=== PATIENT | male | born 1955 | race Caucasian/White ===

== ENCOUNTER 2018-07-05 01:31 | Inpatient (IN) ==
--- NOTE | 2018-07-05 01:38 | ED ---
HPI General Chief Complaint: Stroke Alert Stated Complaint: Stroke Alert Time Seen by Provider: 07/05/18 01:33 Source: patient, family and EMS Mode of arrival: EMS Limitations: no limitations History of Present Illness Onset (ago): minute(s) (45) Time: 00:45 Last Observed Normal: 00:45 Timing confirmed by: spouse Location: Reports right face, right arm and right leg History of same: Yes (History of previous stroke with no residual deficits) Severity: moderate Quality: Reports weak and numb Relieving factors: none Exacerbating factors: none Context: Reports sudden onset On Anticoagulants: No (He is on an aspirin a day) Associated symptoms: Reports denies other symptoms Treatments Prior to Arrival: Reports none Related Data Home Medications Medication Instructions Recorded Confirmed Zopiclone 1 tab PO HS PRN 07/05/18 atorvastatin 80 mg PO DAILY 07/05/18 07/05/18 celecoxib 200 mg PO BID PRN 07/05/18 07/05/18 citalopram 10 mg PO DAILY 07/05/18 07/05/18 escitalopram oxalate 20 mg PO DAILY 07/05/18 07/05/18 febuxostat [Uloric] 80 mg PO DAILY 07/05/18 07/05/18 hydromorphone 0.5 - 1 tab PO Q4H PRN 07/05/18 07/05/18 meloxicam 7.5 mg PO DAILY 07/05/18 07/05/18 perindopril erbumine 4 mg PO DAILY 07/05/18 07/05/18 tadalafil 20 mg PO DAILY 07/05/18 07/05/18 Allergies Allergy/AdvReac Type Severity Reaction Status Date / Time No Known Allergies Allergy Verified 07/05/18 01:33 Review of Systems ROS: all other systems reviewed are negative [facility] Medical History Medical History Gout (Acute) High cholesterol (Acute) Hypertension (Acute) Stroke (Acute) Surgical History Surgical History Hx of appendectomy (Acute) Hx of rotator cuff surgery (Acute) Social History Social History Substance History: Past History Smoking Status: Never smoker How Often Do You Have a Drink Containing Alcohol: 4 or more times a week Recent Travel in [facility] within the Last 8 Weeks: No Recent Out of Country Travel within the Last 8 Weeks: No Exam Const General: cooperative, healthy appearing and comfortable Orientation: alert, awake and oriented x3 HENMT Head: normal to inspection, normocephalic and atraumatic Eyes Alignment and Position: alignment normal Conjunctivae: conjunctivae normal Sclera: sclerae normal Pupils: PERRL EOM: EOM intact bilaterally Neck Neck: normal visual inspection, no lymphadenopathy and no meningeal signs Chest Chest: normal inspection of the chest Resp Effort & Inspection: normal respiratory effort and able to speak in complete sentences Auscultation: clear to auscultation bilaterally Cardio Rate: regular rate Rhythm: regular rhythm Back/Spine/Pelvis Cervical Spine: cervical ROM normal Thoracic/Lumbar Spine: thoraco-lumbar ROM normal Skin General: no rashes or lesions noted, turgor normal and dry skin Neuro General: alert, awake and oriented x3 Cranial Nerves: CN's II-XI intact bilaterally Cognition: normal cognition Speech: speech normal Motor: other Extrem General: normal to inspection and full ROM Psych Appearance: grossly normal Mental Status: mental status grossly normal Speech and Movement: speech and movement normal Mood: congruent mood Affect: normal affect Attitude: cooperative Thought Process: normal Thought Content: normal Judgment: judgment good Course Consultations Consultation #1: Dr. Aguilar, neurology Time: 01:41 Consultation #2: Dr. Bowen, carriage setter Time: 02:00 Initial Documented Vital Signs Temperature 98.2 F 07/05/18 01:37 Pulse Rate 85 07/05/18 01:37 Respiratory Rate 16 07/05/18 01:37 Blood Pressure 185/91 H 07/05/18 01:37 Pulse Oximetry 98 07/05/18 01:37 Last Documented Vital Signs Temperature 98.2 F 07/05/18 01:37 Pulse Rate 85 07/05/18 01:37 Respiratory Rate 16 07/05/18 01:37 Blood Pressure 185/91 H 07/05/18 01:37 Pulse Oximetry 100 07/05/18 01:53 Critical Care Time Critical Care Time: Yes Total Critical Care Time: 40 Attestation: Time to perform other separately billable procedures was not included in the critical care time. My time did not include minutes spent treating any other patients simultaneously or on activities that did not directly contribute to the patient's treatment. The services I provided to this patient were to treat and/or prevent clinically significant deterioration due to stroke alert I provided critical care services requiring my management, as noted below: Chart data review, documentation time, medication orders and management, vital sign assessments/reviewing monitor data, ordering and reviewing lab tests, ordering and interpreting/reviewing x-rays and diagnostic studies, care of the patient and discussion of the patient with the admitting physicians NIH Stroke Scale NIHSS Time Completed NIHSS Time Completed: 01:37 NIH Stroke Scale Level of Consciousness: 0-Alert Orientation Questions: 0-Answers both correct Responds to Commands: 0-Both tasks correct Gaze Eye Movement: 0-Horizontal movement WNL Visual Bell: 0-No visual field defect Facial Movement: 0-Normal Motor Functions Arm LEFT: 0-No drift Motor Functions Arm RIGHT: 2-Falls before 10 seconds Motor Functions Leg LEFT: 0-No drift Motor Functions Leg RIGHT: 2-Falls before 5 seconds Limb Ataxia: 0-No ataxia Sensory Loss: 2-Severe sensory loss Best Language: 0-Normal Articulation: 0-Normal Extinction or Inattention Sensory: 0-Absent Total: 6 Medical Decision Making MDM Narrative Medical decision making narrative: This patient presented to us as a stroke alert. Onset of symptoms was approximately 12:45 AM. He was up working on the computer when he had the acute onset of right-sided weakness. On exam, he is awake, alert and fully oriented. He has no facial nerve weakness. He does have right facial numbness. He has right extremity weakness , lower greater than upper. This gave him an initial NIH score of 6. The patient was taken emergently to CT. The CT shows a left thalamic hemorrhage measuring 2 cm x 1 cm and causing no mass-effect. The patient is not on any anticoagulants. Therefore, vitamin K, FFP and K Centra are unlikely to be helpful. Due to the location of the hemorrhage, neurosurgical consultation is also unlikely to be helpful. I have placed a call to the carriage setter. The patient has been placed on a Cardene drip for blood pressure control. The [place] been [place] [facility] [place] [facility]. Medical Screen Exam Complete: Yes Emergency Medical Condition: Yes Differential Diagnosis Differential Diagnosis: Differential diagnosis includes but is not limited to TIA, CVA, brain tumor, migraine, anxiety Lab Data Lab results reviewed: Yes I reviewed the patient's lab results. Result diagrams: 07/05/18 01:33 07/05/18 01:33 Lab Results 07/05/18 07/05/18 07/05/18 Range/Units 01:33 01:33 01:33 CBC w Diff Auto diff final WBC 4.1 (4.0-11.0) th/mm3 RBC 3.58 L (4.50-5.90) mil/mm3 Hgb 12.0 L (13.0-17.0) gm/dL Hct 35.2 L (39.0-51.0) % MCV 98.3 (80.0-100.0) fL MCH 33.5 (27.0-34.0) pg MCHC 34.1 (32.0-36.0) % RDW 13.1 (11.6-17.2) % Plt Count 104 L (150-450) th/mm3 MPV 8.0 (7.0-11.0) fL Neut % (Auto) 59.3 (16.0-70.0) % Lymph % (Auto) 24.1 (9.0-44.0) % Marion % (Auto) 15.7 H (0.0-8.0) % Eos % (Auto) 0.5 (0.0-4.0) % Baso % (Auto) 0.4 (0.0-2.0) % Neut # (Auto) 2.5 (1.8-7.7) th/mm3 Lymph # (Auto) 1.0 (1.0-4.8) th/mm3 Marion # (Auto) 0.6 (0.0-0.9) th/mm3 Eos # (Auto) 0.0 (0.0-0.4) th/mm3 Baso # (Auto) 0.0 (0.0-0.2) th/mm3 WBC Differential . Differential Comment . PT 10.6 (9.8-11.6) sec INR 1.0 Ratio APTT 25.4 (23.4-31.7) sec Sodium 142 (136-145) meq/L Potassium 3.7 (3.5-5.1) meq/L Chloride 109 H (98-107) meq/L Carbon Dioxide 23.2 (21.0-32.0) meq/L Anion Gap 10 (5-15) meq/L BUN 12 (7-18) mg/dL Creatinine 1.10 (0.60-1.30) mg/dL Estimated GFR 67 L (>89) mL/min POC Glucose (68-110) mg/dl Random Glucose 105 (74-106) mg/dL Calcium 8.2 L (8.5-10.1) mg/dL Total Creatine Kinase 51 (39-308) U/L Troponin I Less than 0.02 L (0.02-0.05) ng/mL 07/05/18 Range/Units 01:33 CBC w Diff WBC (4.0-11.0) th/mm3 RBC (4.50-5.90) mil/mm3 Hgb (13.0-17.0) gm/dL Hct (39.0-51.0) % MCV (80.0-100.0) fL MCH (27.0-34.0) pg MCHC (32.0-36.0) % RDW (11.6-17.2) % Plt Count (150-450) th/mm3 MPV (7.0-11.0) fL Neut % (Auto) (16.0-70.0) % Lymph % (Auto) (9.0-44.0) % Marion % (Auto) (0.0-8.0) % Eos % (Auto) (0.0-4.0) % Baso % (Auto) (0.0-2.0) % Neut # (Auto) (1.8-7.7) th/mm3 Lymph # (Auto) (1.0-4.8) th/mm3 Marion # (Auto) (0.0-0.9) th/mm3 Eos # (Auto) (0.0-0.4) th/mm3 Baso # (Auto) (0.0-0.2) th/mm3 WBC Differential Differential Comment PT (9.8-11.6) sec INR Ratio APTT (23.4-31.7) sec Sodium (136-145) meq/L Potassium (3.5-5.1) meq/L Chloride (98-107) meq/L Carbon Dioxide (21.0-32.0) meq/L Anion Gap (5-15) meq/L BUN (7-18) mg/dL Creatinine (0.60-1.30) mg/dL Estimated GFR (>89) mL/min POC Glucose 93 (68-110) mg/dl Random Glucose (74-106) mg/dL Calcium (8.5-10.1) mg/dL Total Creatine Kinase (39-308) U/L Troponin I (0.02-0.05) ng/mL Imaging Data Radiologist's impression: Head CT 07/05/18 01:33 CONCLUSION: 1. Acute left thalamic hemorrhage without significant mass effect. Report was called by Dr. Mckeon to Dr. He.. ECG Data EKG Prior to Arrival: Yes Attestation: I personally reviewed and interpreted this ECG as follows: Discharge Plan Discharge Disposition Patient Disposition: ED Admit(ED Internal Use Only) Discharge Order Discharge Orders: ED Use Only Admit Order (Routine); Ordered 07/05/18 Ordered By: Krystal He Discharge Details Diagnosis: Acute intracerebral hemorrhage Physicians Team ED Provider: Krystal He Primary Care Provider: NON STAFF,PROVIDER Attending Provider: Carolyn Bowen Status ED Status: Admitted Patient
[2018-07-05] MEDS ORDERED: Sod Chloride 0.9% Inj 1,000 ML IV.CONT SCH (01:45)
--- NOTE | 2018-07-05 01:51 | CT ---
EXAM DATE: 07/05/2018 1:41 AM EST AGE/SEX: 63 years / Male INDICATIONS: Stroke alert. Right arm and numbness and weakness. CLINICAL DATA: This is the patient's initial encounter. Patient reports that signs and symptoms have been present for 1 day and indicates a pain score of 0/10. MEDICAL/SURGICAL HISTORY: Stroke. None. RADIATION DOSE: 60.08 CTDI (mGy) COMPARISON: No prior exams available for comparison. TECHNIQUE: CT of the head without contrast. Using automated exposure control and adjustment of the mA and/or kV according to patient size, radiation dose was kept as low as reasonably achievable to ob tain optimal diagnostic quality images. DICOM format image data is available electronically for revi ew and comparison. FINDINGS: Cerebrum: There is a 2.1 x 1.1 cm acute thalamic bleed on the left. No significant mass effect observ ed. No other sites of hemorrhage seen. The ventricles are normal for age. No evidence of midline marciano ft, mass lesion, or acute infarction. No extraaxial fluid collections are seen. Posterior Fossa: The cerebellum and brainstem are intact. The 4th ventricle is midline. The cerebe llopontine angle is unremarkable. Extracranial: The visualized portion of the orbits is intact. Skull: The calvaria is intact. No evidence of skull fracture. CONCLUSION: 1. Acute left thalamic hemorrhage without significant mass effect. Report was called by Dr. Mckeon to Dr. He.. Electronically signed by: Parveen Mckeon MD Board Certified Radiologist 07/05/2018 1:50 AM EST
[2018-07-05 01:54] LABS: Chloride 109 meq/L (98-107); Potassium 3.7 meq/L (3.5-5.1); Sodium 142 meq/L (136-145)
[2018-07-05 01:56] LABS: Baso % (Auto) 0.4 % (0.0-2.0); Calcium 8.2 mg/dL (8.5-10.1); Eos % (Auto) 0.5 % (0.0-4.0); Hematocrit 35.2 % (39.0-51.0); Lymph % (Auto) 24.1 % (9.0-44.0); Mean Corpuscular HGB Conc 34.1 % (32.0-36.0); Mean Corpuscular Hemoglobin 33.5 pg (27.0-34.0); Mean Corpuscular Volume 98.3 fL (80.0-100.0); Mono # (Auto) 0.6 th/mm3 (0.0-0.9); Mono % (Auto) 15.7 % (0.0-8.0); Neut # (Auto) 2.5 th/mm3 (1.8-7.7); Neut % (Auto) 59.3 % (16.0-70.0); Platelet Count 104 th/mm3 (150-450); Red Blood Count 3.58 mil/mm3 (4.50-5.90); Red Cell Distribution Width 13.1 % (11.6-17.2); White Blood Count 4.1 th/mm3 (4.0-11.0)
[2018-07-05 01:57] LABS: Anion Gap 10 meq/L (5-15); Blood Urea Nitrogen 12 mg/dL (7-18); Carbon Dioxide 23.2 meq/L (21.0-32.0); Glucose,Random 105 mg/dL (74-106)
[2018-07-05 01:59] LABS: Activated Partial Thrombo Time 25.4 sec (23.4-31.7); Prothrombin Time 10.6 sec (9.8-11.6)
[2018-07-05 02:00] LABS: Glomerular Filtration Rate 67 mL/min (>89)
[2018-07-05] MEDS: niCARdipine Inj 25 MG in Sodium Chlor 0.9% Inj 240 ML IV.CONT PRN ×3 (02:06→22:09)
[2018-07-05 02:26] LABS: Creatine Kinase 51 U/L (39-308)
[2018-07-05] MEDS ORDERED: Potassium Chlor 20 mEq Premix 20 MEQ/100 ML PIGGYBACK IV.SIG PRN ×2 (03:09)
[2018-07-05] MEDS ORDERED: Acetaminophen 325 MG Tablet PO PRN (03:09)
[2018-07-05] MEDS ORDERED: Potassium Chlor 40 mEq Premix 40 MEQ/100 ML PIGGYBACK IV.SIG PRN ×2 (03:09)
[2018-07-05] MEDS ORDERED: Bisacodyl 10 MG Supp RECTAL PRN (03:09)
[2018-07-05] MEDS ORDERED: Magnesium Sulfate Inj 2 GM in Sodium Chlor 0.9% Inj 96 ML IV.SIG PRN (03:09)
[2018-07-05] MEDS ORDERED: Potassium Chloride Liq 20 MEQ/15 ML UDC PO PRN ×2 (03:09)
[2018-07-05] MEDS ORDERED: Potassium Phosphate 500 MG Soluble Tablet PO PRN ×2 (03:09)
[2018-07-05] MEDS ORDERED: Magnesium Oxide 400 MG Tablet PO PRN (03:09)
[2018-07-05] MEDS ORDERED: Sodium Phosphate Inj 30 MMOL in Sodium Chlor 0.9% Inj 250 ML IV.SIG PRN (03:09)
[2018-07-05] MEDS ORDERED: Magnesium Sulfate Inj 4 GM in Sodium Chlor 0.9% Inj 92 ML IV.SIG PRN (03:09)
[2018-07-05] MEDS ORDERED: Potassium Phosphate Inj 30 MMOL in Sodium Chlor 0.9% Inj 250 ML IV.SIG PRN (03:09)
[2018-07-05] MEDS ORDERED: Dextrose 50% in Water 50 ML Vial IV.PUSH PRN (03:40)
--- NOTE | 2018-07-05 03:46 | P.HPCC ---
History of Present Illness Service: [facility] Primary Care Physician: PROVIDER NON STAFF Chief Complaint: Right-sided numbness and weakness History of Present Illness: 63yM with history of hypertension, dyslipidemia, and TIA who presented to the [place] [facility] Department with sudden-onset headache and right upper/ lower extremity numbness and weakness. The patient states that he was working on his computer this morning around 00:45 when he had a sudden-onset headache. He tried to stand up and walk but realized that his right arm and leg were weak and numb. He reports that just prior to arriving in the ED he began to have right facial numbness as well. Denies aphasia, dysarthria, visual disturbance, facial droop, or confusion. He had a CTH performed with showed an acute left thalamic hemorrhagic stroke, so he was transferred to the [facility] for surgical critical care and neurology consultation. The patient reports that he takes 81 mg aspirin daily and says that he's had a TIA in the past which left him with no residual deficits. He is a right-hand dominant retired manager council. He also reports that he has a "blister" to his left foot which has not healed since he first noticed it 3 months ago, and has been seeing a primary care doctor in [place] for this (patient is a "snow bird" from [place]). - Diagnosis (1) Hemorrhagic cerebrovascular accident (CVA) (2) Hypertension (3) Dyslipidemia (4) Foot ulcer (5) Alcohol use disorder Inpatient Certification: I certify that the inpatient services were ordered in accordance with Medicare regulations governing the order. This includes certification that hospital inpatient services are reasonable and necessary and in the case of services not specified as inpatient-only under 42 CFR 419.22(n), that they are appropriately provided as inpatient services in accordance to with the 2-midnight benchmark under 43 CFR 412.3(e) Estimated Total Length of Stay (Days): 7 Plans for Post Hospital Care: Not yet determined Review of Systems All other systems reviewed negative except as stated in HPI Constitutional: Denies fever(s) Eyes: Denies loss of vision Ears, Nose, Mouth, and Throat: Denies difficulty swallowing Cardiovascular: Denies chest pain, Denies rapid, pounding, or irregular heartbeat Respiratory: Denies cough Gastrointestinal: Denies abdominal pain Genitourinary: Denies difficulty urinating Musculoskeletal: Denies back pain Neurologic: Denies confusion Psychiatric: Denies confusion [facility] - History History Provided By: Patient - Medical History Medical History: Medical History (Last Reviewed 07/05/18 @ 03:05 by Carolyn Bowen DO) Gout High cholesterol Hypertension Stroke - Surgical History Surgical History: Surgical History (Last Reviewed 07/05/18 @ 03:05 by Carolyn Bowen DO) Hx of appendectomy Hx of rotator cuff surgery - Social History I have reviewed the patient's Social History: Yes - Tobacco History Second Hand Smoke Exposure: No Tobacco Use In Past 30 Days: No Smoking Status: Former smoker Tobacco Type: Cigarettes - Alcohol History How Often Do You Have a Drink Containing Alcohol: 4 or more times a week ( Patient reports he drinks up to 6 drinks per night) - Substance Use History Substance History: No History of Abuse - Travel History Recent Travel in the [place] Within the Last 8 Weeks: No Recent Travel Out of the Country Within the Last 8 Weeks: No - Immunization History Tetanus Immunization: >5 Years Medications and Allergies Active Medications: Active Medications Acetaminophen (Tylenol) 650 mg PO Q6H PRN PRN Reason: PAIN 1-10 AND/OR FEVER >101F Al Hydroxide/Mg Hydroxide (Milk Of Almaz Daigle) 30 ml PO Q12H PRN PRN Reason: Mild Constipation Albuterol (Duoneb Neb (Prn)) 1 ampul NEB Q2HR NEB PRN PRN Reason: WHEEZING Bisacodyl (Dulcolax Supp) 10 mg RECTAL DAILY PRN PRN Reason: SEVERE CONSITIPATION Chlorhexidine Gluconate (Chlorhexidine 2% Cloth) 3 pack TOPICAL DAILY@0400 JAE Stop: 07/10/18 03:59 Chlorhexidine Gluconate (Chlorhexidine 2% Cloth) 3 pack TOPICAL DAILY@0400 PRN PRN Reason: Extra cloth needed Stop: 07/10/18 03:59 Famotidine (Pepcid) 20 mg PO BID JAE Famotidine (Pepcid Pf Inj) 20 mg IV.PUSH Q12HR JAE Sodium Chloride (Ns Inj) 1,000 mls @ 70 mls/hr IV.CONT .[id number] [facility] Stop: 07/05/18 16:02 Last Admin: 07/05/18 01:59 Dose: 70 mls/hr Nicardipine HCl 25 mg/ Sodium (Chloride) 250 mls @ 50 mls/hr IV.CONT TITRATE PRN; Protocol PRN Reason: Per Protocol Last Titration: 07/05/18 03:00 Dose: 10 mg/hr, 100 mls/hr Levetiracetam 500 mg/ Sodium (Chloride) 105 mls @ 400 mls/hr IV.SIG Q12H JAE Magnesium Sulfate 4 gm/ Sodium (Chloride) 100 mls @ 50 mls/hr IV.SIG UNSCH PRN PRN Reason: For Magnesium 0.9 - 1.1 mg/dL Magnesium Sulfate 2 gm/ Sodium (Chloride) 100 mls @ 50 mls/hr IV.SIG UNSCH PRN PRN Reason: For Magnesium 1.2 - 1.6 mg/dL Potassium Chloride (Kcl 40 Meq Premix Inj) 40 meq in 100 mls @ 25 mls/hr IV.SIG Q2H PRN PRN Reason: For Potassium 2.8 - 3.2 mEq/L Potassium Chloride (Kcl 20 Meq Premix Inj) 20 meq in 100 mls @ 50 mls/hr IV.SIG Q2H PRN PRN Reason: For Potassium 3.3 - 3.5 mEq/L Potassium Chloride (Kcl 40 Meq Premix Inj) 40 meq in 100 mls @ 25 mls/hr IV.SIG UNSCH PRN PRN Reason: For Potassium 3.3 - 3.5 mEq/L Potassium Chloride (Kcl 20 Meq Premix Inj) 20 meq in 100 mls @ 50 mls/hr IV.SIG Q2H PRN PRN Reason: For Potassium 2.8 - 3.2 mEq/L Potassium Phosphate 30 mmol/ (Sodium Chloride) 260 mls @ 42 mls/hr IV.SIG UNSCH PRN PRN Reason: SEE LABEL COMMENTS Sodium Phosphate 30 mmol/ (Sodium Chloride) 260 mls @ 42 mls/hr IV.SIG UNSCH PRN PRN Reason: For Phosphorus < 2.5 mg/dL Lactulose (Lactulose Liq) 30 ml PO DAILY PRN PRN Reason: SEVERE CONSITIPATION Magnesium Oxide (Mag-Ox) 800 mg PO UNSCH PRN PRN Reason: For Magnesium 1.2 - 1.6 mg/dL Ondansetron HCl (Zofran Inj) 4 mg IV.PUSH Q6H PRN PRN Reason: NAUSEA OR VOMITING Potassium Chloride (Kcl Liq) 40 meq PO UNSCH PRN PRN Reason: Potassium level 3.3-3.5 mEq/L Potassium Chloride (Kcl Liq) 40 meq PO UNSCH PRN PRN Reason: POTASSIUM LESS THAN 3.5 Potassium Phosphate (K-Phos Original) 2,000 mg PO Q4H PRN PRN Reason: Phosphorus Less Than 2.5 mg/dL Potassium Phosphate (K-Phos Original) 2,000 mg PO UNSCH PRN PRN Reason: SEE LABEL COMMENTS Senna/Docusate Sodium (Alanna-Colace) 1 tab PO BID JAE Sennosides (Senokot) 17.2 mg PO Q12H PRN PRN Reason: Moderate Constipation Sodium Chloride (Ns Flush) 2 ml IV.FLUSH PRN PRN PRN Reason: FLUSH AFTER USING IV ACCESS Sodium Chloride (Ns Flush) 2 ml IV.FLUSH BID JAE Sodium Chloride (Ns Flush) 2 ml IV.FLUSH PRN PRN PRN Reason: FLUSH AFTER USING IV ACCESS Allergies Allergy/AdvReac Type Severity Reaction Status Date / Time No Known Allergies Allergy Verified 07/05/18 01:33 Home Medications Medication Instructions Recorded Confirmed Type Zopiclone 1 tab PO HS PRN 07/05/18 History atorvastatin 80 mg PO DAILY 07/05/18 07/05/18 History celecoxib 200 mg PO BID PRN 07/05/18 07/05/18 History citalopram 10 mg PO DAILY 07/05/18 07/05/18 History escitalopram oxalate 20 mg PO DAILY 07/05/18 07/05/18 History febuxostat [Uloric] 80 mg PO DAILY 07/05/18 07/05/18 History hydromorphone 0.5 - 1 tab PO Q4H PRN 07/05/18 07/05/18 History meloxicam 7.5 mg PO DAILY 07/05/18 07/05/18 History perindopril erbumine 4 mg PO DAILY 07/05/18 07/05/18 History tadalafil 20 mg PO DAILY 07/05/18 07/05/18 History Results - Labs CBC & Chem 7: 07/05/18 01:33 07/05/18 01:33 Labs: Short CBC 07/05/18 Range/Units 01:33 WBC 4.1 (4.0-11.0) th/mm3 Hgb 12.0 L (13.0-17.0) gm/dL Hct 35.2 L (39.0-51.0) % Plt Count 104 L (150-450) th/mm3 BMP 07/05/18 01:33 Sodium 142 Potassium 3.7 Chloride 109 H Carbon Dioxide 23.2 BUN 12 Creatinine 1.10 Calcium 8.2 L Cardiac Enzymes 07/05/18 Range/Units 01:33 Total Creatine Kinase 51 (39-308) U/L Troponin I Less than 0.02 L (0.02-0.05) ng/mL - Imaging Impressions Head CT 07/05/18 01:33 CONCLUSION: 1. Acute left thalamic hemorrhage without significant mass effect. Report was called by Dr. Mckeon to Dr. He.. Exam Vital signs: Vital Signs 07/05/18 01:37 07/05/18 01:53 Temperature 98.2 F Pulse Rate 85 Respiratory Rate 16 Blood Pressure 185/91 H Pulse Oximetry 98 100 Intake & Output 07/04/18 07/04/18 07/05/18 06:59 18:59 06:59 Weight 85.9 kg Other: Weight On Admission 85.9 kg Narrative: GEN: Well-nourished elderly male lying in bed, no acute distress HEENT: PERRL, no apparent facial droop, reports decreased sensation to right side of face NECK: Trachea midline CARDIO: Regular rate and rhythm PULM: Clear to auscultation bilaterally ABD/GI: Soft, non-distended, non-tender in all quadrants EXT/MSK: No peripheral edema SKIN: Warm and well-perfused, 1.5 cm circular ulcerated lesion at the medial base of left 1st digit, minimal surrounding warmth, no drainage, no lymphangitic streaking NEURO: Awake, alert, and oriented x 3; speech clear and fluent, no slurred speech or aphasia; reports diminished sensation to right side of face and complete numbness to right upper and lower extremity. Motor strength 5/5 in left upper and lower extremities, 4/5 in right pediatric nephrologist strength, 3/5 in right upper extremity extension with drift after 5 seconds, 3/5 motor strength in right lower extremity with drift before 5 seconds. Able to name 2 objects appropriately. No visual field deficits. NIHSS on my exam is 5 (+1 for RUE drift , +2 for RLE drift, +2 for loss of sensation) PSYCH: Appropriate affect Caprini VTE Risk Assessment Caprini VTE Risk Assessment: Moderate/High Risk (score >= 2) VTE Pharmacological Exception Reason: Hemorrhage Caprini Risk Assessment Model: Point Value = 1 Point Value = 2 Point Value = 3 Point Value = 5 Age 41-60 Minor surgery BMI > 25 kg/m2 Swollen legs Varicose veins or History of unexplained or recurrent spontaneous Oral contraceptives or hormone replacement Sepsis (< 1 month) Serious lung disease, including pneumonia (< 1 month) Abnormal pulmonary function Acute myocardial infarction Congestive heart failure (< 1 month) History of inflammatory bowel disease Medical patient at bed rest Age 61-74 Arthroscopic surgery Major open surgery (> 45 min) Laparoscopic surgery (> 45 min) Malignancy Confined to bed (> 72 hours) Immobilizing plaster cast Central venous access Age >= 75 History of VTE Family history of VTE Factor V Leiden Prothrombin [id number] Lupus anticoagulant Anticardiolipin antibodies Elevated serum homocysteine Heparin-induced thrombocytopenia Other congenital or acquired thrombophilia Stroke (< 1 month) Elective arthroplasty Hip, pelvis, or leg fracture Acute spinal cord injury (< 1 month) Prophylaxis Regimen: Total Risk Factor Score Risk Level Prophylaxis Regimen 0-1 Low Early ambulation 2 Moderate Order ONE of the following: *Sequential Compression Device (SCD) *Heparin 5000 units SQ BID 3-4 Higher Order ONE of the following medications: *Heparin 5000 units SQ TID *Enoxaparin/Lovenox 40 mg SQ daily (WT < 150 kg, CrCl > 30 mL/min) *Enoxaparin/Lovenox 30 mg SQ daily (WT < 150 kg, CrCl > 10-29 mL/min) *Enoxaparin/Lovenox 30 mg SQ BID (WT < 150 kg, CrCl > 30 mL/min) AND/OR *Sequential Compression Device (SCD) 5 or more Highest Order ONE of the following medications: *Heparin 5000 units SQ TID (Preferred with Epidurals) *Enoxaparin/Lovenox 40 mg SQ daily (WT < 150 kg, CrCl > 30 mL/min) *Enoxaparin/Lovenox 30 mg SQ daily (WT < 150 kg, CrCl > 10-29 mL/min) *Enoxaparin/Lovenox 30 mg SQ BID (WT < 150 kg, CrCl > 30 mL/min) AND *Sequential Compression Device (SCD) Assessment and Plan - Problem List (1) Hemorrhagic cerebrovascular accident (CVA) Code(s): I61.9 - Nontraumatic intracerebral hemorrhage, unspecified Status: Acute (2) Hypertension Code(s): I10 - Essential (primary) hypertension Status: Acute (3) Dyslipidemia Code(s): E78.5 - Hyperlipidemia, unspecified Status: Acute (4) Foot ulcer Code(s): L97.509 - Non-pressure chronic ulcer of other part of unspecified foot with unspecified severity Status: Acute (5) Alcohol use disorder Status: Acute - Assessment and Plan Plan: 63yM presenting with acute hemorrhagic CVA, right-sided weakness/ numbness, and left foot ulcerated wound NEURO: Acute hemorrhagic CVA of left thalamus, likely hypertensive ICH Right-sided hemiplegia Right-sided numbness History of TIA Alcohol use disorder History of depression -BP control as noted below -Aspirin contraindicated in the setting of ICH -Neurology consult in AM- ED physician spoke with construction equipment mechanic helper neurologist during stroke alert -MRI brain -PT/OT/speech therapy consults -Monitor for signs of alcohol withdrawal; would like to avoid benzodiazepines unless necessary to avoid clouding mental status -Thiamine supplementation -Keppra for seizure prophylaxis -Continue home doses of citalopram/ escitalopram CARDIO: Hypertension Dyslipidemia -Cardiac monitoring -Check 2D echo -Check lipid panel and A1c -BP control: patient presented to the ED with SBP between 180-190, unclear what his normal BP is; currently on cardene gtt, would like to keep SBP between 140- 160 mmHg -Patient is on non-formulary ANTONINA-I at home, start lisinopril here -Patient is not on any beta lyudmila or CCBs at home, will start low-dose PO lopressor in order to titrate off cardene -Continue statin PULM: -No active issues F/E/N: -Patient passed bedside swallowing but will get formal speech therapy consult as part of stroke pathway -Maintenance IVF, d/c when tolerating PO -ICU electrolyte protocol ENDO: -Check HbA1c -NISS as needed, q6h while NPO MSK/SKIN: Left foot wound/ ulcer -Appears chronic/ not acutely infected, will hold off antibiotics for now -Podiatry consult as patient reports that the wound has been present for nearly 3 months and does not have a local physician to follow up with -PT/OT consults as noted above PROPHY: -SCDs only, chemical DVT prophylaxis contraindicated in the setting of ICH -PPI OVERALL: This patient is critically ill and requires ICU level of care. He is at high risk for decompensation. Counseling/ Coordination of Care: This patient is critically ill with impairment of one or more vital organ systems with a high probability of imminent or life-threatening deterioration. High-complexity medical decision making was required to support vital organ function and/ or prevent deterioration of the patient's condition. Total critical care time spent is 56 minutes giving full attention to this patient. This includes coordinating transfer from another campus, examining the patient, gathering history from someone other than the patient (i.e. chart review), discussing the patient's care with other providers, managing the patient's blood pressure via cardizem drip and multiple PO medications, ordering and interpreting radiologic studies, ordering and interpreting laboratory values, re-evaluation at frequent intervals, and documentation. Amount of time is separate from teaching, counseling the patient and/or family, and exclusive of procedures. Code Status: Full H&P: Quality - VTE Deep Vein Thrombosis/Pulmonary Embolism Present on Admission: No
[2018-07-05] MEDS ORDERED: Chlorhexidine Gluconate 2% 1 Pack (2 Cloths) TOPICAL PRN (04:00)
[2018-07-05] MEDS: Thiamine Inj 100 MG in Sodium Chlor 0.9% Inj 100 ML IV.SIG SCH ×2 (05:42→08:47)
[2018-07-05] MEDS: Chlorhexidine Gluconate 2% 1 Pack (2 Cloths) TOPICAL SCH (05:45)
[2018-07-05] MEDS: Insulin NovoLIN Regular Correctional Sugar Inj SQ SCH ×4 (06:38→23:59)
[2018-07-05] MEDS ORDERED: ALPRAZolam 0.25 MG Tablet PO PRN (07:46)
[2018-07-05] MEDS: Famotidine PF Inj 20 MG/2 ML Vial IV.PUSH SCH ×2 (08:47→20:30)
[2018-07-05] MEDS: Citalopram 20 MG Tablet PO SCH (08:47)
[2018-07-05] MEDS: Metoprolol Tartrate 25 MG Tablet PO SCH ×2 (08:47→20:30)
[2018-07-05] MEDS: Senna/Docusate Sodium 8.6/50 MG Tablet PO SCH ×2 (08:47→20:30)
[2018-07-05] MEDS: Famotidine 20 MG Tablet PO SCH ×2 (08:48→20:31)
[2018-07-05] MEDS: Lisinopril 10 MG Tablet PO SCH ×2 (08:48→08:49)
[2018-07-05 09:05] LABS: Chol/HDL Ratio 2.27 Ratio; HDL Cholesterol 52.8 mg/dL (40.0-60.0)
[2018-07-05 10:17] LABS: Amphetamine Screen,Urine Neg (Neg); Barbiturate Screen,Urine Neg (Neg); Cannabinoid Screen,Urine Neg (Neg); Cocaine Screen,Urine Neg (Neg); Opiate Screen,Urine Neg (Neg)
--- NOTE | 2018-07-05 11:26 | MB ---
cc: Yann Trevino MD DATE: 07/05/2018 Report of an initial comprehensive inpatient surgical intensive care unit neurosurgical consultation. The patient was interviewed, examined, the documentation, laboratory evaluation, and imaging reviewed. TIME: 8:30 a.m. CHIEF COMPLAINT: Headache and weakness. HISTORY OF PRESENT ILLNESS: This 63-year-old apparently right-handed white male who suffered the acute onset of a headache with a right hemiparesis and a right hemisensory deficit. In any case, he was brought to the emergency department, and a CT scan of the head was obtained, which reveals a left basal ganglionic acute intracerebral hemorrhage located within the left thalamus. There are also signs of encephalomalacia in the left posterior temporoparietal region and frontal region. Apparently, the patient has had a history of a previous stroke. On admission, the patient was hypertensive. In any case, he was admitted to the surgical intensive care unit and his blood pressure was controlled. He has remained stable overnight. PAST MEDICAL HISTORY: Remarkable for history of gout, hypercholesterolemia, hypertension, and previous stroke. PAST SURGICAL HISTORY: Remarkable for an appendectomy and a rotator cuff repair of his shoulder. MEDICATIONS: As listed, are referred to the chart. It should be noted the patient takes only aspirin daily. ALLERGIES: HE HAS NO KNOWN DRUG ALLERGIES. SOCIAL HISTORY: He denies a history of cigarette smoking or tobacco use. Denies a history of ethanol abuse or illicit drug use. FAMILY HISTORY: Remarkable for history of hypertension and heart disease. REVIEW OF SYSTEMS: The patient denies any weight change. He denies any fever, chills or night sweats. He denies any headaches. He denies any change in his vision or hearing or thinking or memory or speech or swallowing or chest pain or shortness of breath or abdominal pain or change in bowel or bladder function or characteristics of his urine or stool. Denies any rash, itching, or easy bruising. He admits some difficulty with his balance intermittently. He denies any anxiety or depression. PHYSICAL EXAMINATION: VITAL SIGNS: Temperature is 98, his heart rate is 94, his respiratory rate is 17, his SpO2 is 97% on room air. His blood pressure is 140/72. NEUROLOGIC: Mental status testing finds the patient to be awake and alert. He is oriented x3. Cognitive function is grossly intact. His speech appears fluent. Cranial nerve testing 2-12 was grossly intact with some minimal facial weakness on the right. He also had numbness in the right V1, V2, and V3 distribution. Pupils were equally round and reactive to light. Extraocular movements full without diplopia or nystagmus and visual aviles are full to confrontation. Funduscopic examination was deferred due to small pupils. Motor examination was remarkable for a right hemiparesis with increased tone. Sensory examination was remarkable for diminished light touch on the right. Position sense appeared to be intact. Deep tendon reflexes were 2+ on the left and 3+ on the right. There were no pathological reflexes noted. Cerebellar, gait, Romberg and tandem were not tested. His head was normocephalic. Skin was clear without masses. Neck was supple without meningismus. Pulses were 4+ present and symmetrical throughout. IMPRESSION: My impression is that the patient has suffered what appears to be a spontaneous hypertensive intracerebral hemorrhage. RECOMMENDATIONS: Certainly at this point a conservative neurosurgical approach is warranted. His blood pressure needs to be controlled to maintain his systolic between 140 and 160 and he certainly will require an aggressive course of stroke rehabilitation. Neurosurgery will follow. Thank you for allowing me to participate in the care of this patient. MD AILYN Decker/marisela , 10:25 AM , 10:35 AM
--- NOTE | 2018-07-05 12:22 | P.CONPOD ---
History of Present Illness Service: Podiatry Consult date: 07/05/18 Reason for Consult: left foot ulcer Primary Care Provider: PROVIDER NON STAFF Chief Complaint: Right-sided numbness and weakness History of Present Illness: Patient states he got a blister while in [place] in April and it has not healed. His is present and says skin has peeled off the area and it continues to have some drainage. He is in-house due to stroke with right sided weakness. Review of Systems All other systems reviewed negative except as stated in HPI [facility] - History History Provided By: Patient - Medical History Medical History: Medical History (Last Reviewed 07/05/18 @ 08:41 by Lakeisha Batres) Gout High cholesterol Hypertension Stroke - Surgical History Surgical History: Surgical History (Last Reviewed 07/05/18 @ 08:41 by Lakeisha Batres) Hx of appendectomy Hx of rotator cuff surgery - Tobacco History Second Hand Smoke Exposure: No Tobacco Use In Past 30 Days: No Smoking Status: Former smoker Tobacco Type: Cigarettes - Alcohol History How Often Do You Have a Drink Containing Alcohol: 4 or more times a week ( Patient reports he drinks up to 6 drinks per night) - Substance Use History Substance History: No History of Abuse - Travel History Recent Travel in the [place] Within the Last 8 Weeks: No Recent Travel Out of the Country Within the Last 8 Weeks: No - Immunization History Tetanus Immunization: >5 Years Tetanus Immunization Year if Known: 2010 Hx Influenza Vaccine This Season: Yes Medications and Allergies Active Medications: Active Medications Acetaminophen (Tylenol) 650 mg PO Q6H PRN PRN Reason: PAIN 1-10 AND/OR FEVER >101F Al Hydroxide/Mg Hydroxide (Milk Of Almaz Daigle) 30 ml PO Q12H PRN PRN Reason: Mild Constipation Albuterol (Duoneb Neb (Prn)) 1 ampul NEB Q2HR NEB PRN PRN Reason: WHEEZING Alprazolam (Xanax) 0.5 mg PO Q6HR PRN PRN Reason: ANXIETY Atorvastatin Calcium (Lipitor) 80 mg PO DAILY [facility] Last Admin: 07/05/18 08:48 Dose: 80 mg Bisacodyl (Dulcolax Supp) 10 mg RECTAL DAILY PRN PRN Reason: SEVERE CONSITIPATION Chlorhexidine Gluconate (Chlorhexidine 2% Cloth) 3 pack TOPICAL DAILY@0400 [facility] Stop: 07/10/18 03:59 Last Admin: 07/05/18 05:45 Dose: 3 pack Chlorhexidine Gluconate (Chlorhexidine 2% Cloth) 3 pack TOPICAL DAILY@0400 PRN PRN Reason: Extra cloth needed Stop: 07/10/18 03:59 Citalopram Hydrobromide (Celexa) 10 mg PO DAILY [facility] Last Admin: 07/05/18 08:47 Dose: 10 mg Dextrose (D50w Vial) 50 ml IV.PUSH UNSCH PRN PRN Reason: PER HYPOGLYCEMIA PROTOCOL Escitalopram Oxalate (Lexapro) 20 mg PO DAILY [facility] Last Admin: 07/05/18 08:48 Dose: 20 mg Famotidine (Pepcid) 20 mg PO BID [facility] Last Admin: 07/05/18 08:48 Dose: Not Given Famotidine (Pepcid Pf Inj) 20 mg IV.PUSH Q12HR [facility] Last Admin: 07/05/18 08:47 Dose: 20 mg Glucagon (Glucagon Inj) 1 mg OTHER PRN PRN PRN Reason: for Hypoglycemia Protocol Sodium Chloride (Ns Inj) 1,000 mls @ 70 mls/hr IV.CONT .[id number] [facility] Stop: 07/05/18 16:02 Last Admin: 07/05/18 01:59 Dose: 70 mls/hr Nicardipine HCl 25 mg/ Sodium (Chloride) 250 mls @ 50 mls/hr IV.CONT TITRATE PRN; Protocol PRN Reason: Per Protocol Last Titration: 07/05/18 10:14 Dose: Infused Levetiracetam 500 mg/ Sodium (Chloride) 105 mls @ 400 mls/hr IV.SIG Q12H [facility] Last Infusion: 07/05/18 06:38 Dose: Infused Magnesium Sulfate 4 gm/ Sodium (Chloride) 100 mls @ 50 mls/hr IV.SIG UNSCH PRN PRN Reason: For Magnesium 0.9 - 1.1 mg/dL Magnesium Sulfate 2 gm/ Sodium (Chloride) 100 mls @ 50 mls/hr IV.SIG UNSCH PRN PRN Reason: For Magnesium 1.2 - 1.6 mg/dL Potassium Chloride (Kcl 40 Meq Premix Inj) 40 meq in 100 mls @ 25 mls/hr IV.SIG Q2H PRN PRN Reason: For Potassium 2.8 - 3.2 mEq/L Potassium Chloride (Kcl 20 Meq Premix Inj) 20 meq in 100 mls @ 50 mls/hr IV.SIG Q2H PRN PRN Reason: For Potassium 3.3 - 3.5 mEq/L Potassium Chloride (Kcl 40 Meq Premix Inj) 40 meq in 100 mls @ 25 mls/hr IV.SIG UNSCH PRN PRN Reason: For Potassium 3.3 - 3.5 mEq/L Potassium Chloride (Kcl 20 Meq Premix Inj) 20 meq in 100 mls @ 50 mls/hr IV.SIG Q2H PRN PRN Reason: For Potassium 2.8 - 3.2 mEq/L Potassium Phosphate 30 mmol/ (Sodium Chloride) 260 mls @ 42 mls/hr IV.SIG UNSCH PRN PRN Reason: SEE LABEL COMMENTS Sodium Phosphate 30 mmol/ (Sodium Chloride) 260 mls @ 42 mls/hr IV.SIG UNSCH PRN PRN Reason: For Phosphorus < 2.5 mg/dL Thiamine HCl 100 mg/ Sodium (Chloride) 101 mls @ 100 mls/hr IV.SIG DAILY [facility] Last Infusion: 07/05/18 09:48 Dose: Infused Insulin Human Regular (Novolin R Correctional Sugar Inj) 0 units SQ Q6HR [facility]; Protocol Last Admin: 07/05/18 11:31 Dose: Not Given Lactulose (Lactulose Liq) 30 ml PO DAILY PRN PRN Reason: SEVERE CONSITIPATION Lisinopril (Prinivil) 10 mg PO DAILY [facility] Last Admin: 07/05/18 08:48 Dose: 10 mg Lisinopril (Prinivil) 10 mg PO DAILY [facility] Last Admin: 07/05/18 08:49 Dose: Not Given Magnesium Oxide (Mag-Ox) 800 mg PO UNSCH PRN PRN Reason: For Magnesium 1.2 - 1.6 mg/dL Metoprolol Tartrate (Lopressor) 12.5 mg PO BID [facility] Last Admin: 07/05/18 08:47 Dose: 12.5 mg Ondansetron HCl (Zofran Inj) 4 mg IV.PUSH Q6H PRN PRN Reason: NAUSEA OR VOMITING Potassium Chloride (Kcl Liq) 40 meq PO UNSCH PRN PRN Reason: Potassium level 3.3-3.5 mEq/L Potassium Chloride (Kcl Liq) 40 meq PO UNSCH PRN PRN Reason: POTASSIUM LESS THAN 3.5 Potassium Phosphate (K-Phos Original) 2,000 mg PO Q4H PRN PRN Reason: Phosphorus Less Than 2.5 mg/dL Potassium Phosphate (K-Phos Original) 2,000 mg PO UNSCH PRN PRN Reason: SEE LABEL COMMENTS Senna/Docusate Sodium (Alanna-Colace) 1 tab PO BID [facility] Last Admin: 07/05/18 08:47 Dose: 1 tab Sennosides (Senokot) 17.2 mg PO Q12H PRN PRN Reason: Moderate Constipation Sodium Chloride (Ns Flush) 2 ml IV.FLUSH BID [facility] Last Admin: 07/05/18 08:48 Dose: 2 ml Sodium Chloride (Ns Flush) 2 ml IV.FLUSH PRN PRN PRN Reason: FLUSH AFTER USING IV ACCESS Allergies Allergy/AdvReac Type Severity Reaction Status Date / Time No Known Allergies Allergy Verified 07/05/18 01:33 Home Medications Medication Instructions Recorded Confirmed Type Zopiclone 1 tab PO HS PRN 07/05/18 History atorvastatin 80 mg PO DAILY 07/05/18 07/05/18 History celecoxib 200 mg PO BID PRN 07/05/18 07/05/18 History citalopram 10 mg PO DAILY 07/05/18 07/05/18 History escitalopram oxalate 20 mg PO DAILY 07/05/18 07/05/18 History febuxostat [Uloric] 80 mg PO DAILY 07/05/18 07/05/18 History hydromorphone 0.5 - 1 tab PO Q4H PRN 07/05/18 07/05/18 History meloxicam 7.5 mg PO DAILY 07/05/18 07/05/18 History perindopril erbumine 4 mg PO DAILY 07/05/18 07/05/18 History tadalafil 20 mg PO DAILY 07/05/18 07/05/18 History Physical Exam Vital signs: Vital Signs 07/05/18 01:37 07/05/18 01:53 07/05/18 02:43 Temperature 98.2 F Pulse Rate 85 102 H Respiratory Rate 16 26 H Blood Pressure 185/91 H Pulse Oximetry 98 100 99 07/05/18 02:44 07/05/18 02:52 07/05/18 03:00 Temperature Pulse Rate 104 H 108 H 105 H Respiratory Rate 23 30 H 21 Blood Pressure 153/72 H 160/78 H Pulse Oximetry 100 100 100 07/05/18 03:06 07/05/18 03:21 07/05/18 03:36 Temperature Pulse Rate 102 H 101 H 102 H Respiratory Rate 22 17 15 Blood Pressure 142/67 H 154/64 H 146/65 H Pulse Oximetry 100 99 99 07/05/18 03:51 07/05/18 04:00 07/05/18 04:06 Temperature 99.0 F Pulse Rate 99 H 102 H 95 H Respiratory Rate 20 18 18 Blood Pressure 132/75 132/71 Pulse Oximetry 99 99 98 07/05/18 04:21 07/05/18 04:36 07/05/18 04:51 Temperature Pulse Rate 87 92 H 88 Respiratory Rate 20 19 19 Blood Pressure 132/61 138/56 L 137/64 Pulse Oximetry 97 98 98 07/05/18 05:00 07/05/18 05:06 07/05/18 05:21 Temperature Pulse Rate 87 84 87 Respiratory Rate 19 20 26 H Blood Pressure 132/58 L 126/71 Pulse Oximetry 97 98 98 07/05/18 05:36 07/05/18 05:51 07/05/18 06:00 Temperature Pulse Rate 96 H 92 H 88 Respiratory Rate 26 H 13 23 Blood Pressure 128/67 131/63 Pulse Oximetry 98 97 97 07/05/18 06:06 07/05/18 06:21 07/05/18 06:36 Temperature Pulse Rate 88 94 H 89 Respiratory Rate 21 25 H 18 Blood Pressure 133/67 134/66 128/62 Pulse Oximetry 97 98 97 07/05/18 06:51 07/05/18 07:00 07/05/18 07:06 Temperature Pulse Rate 97 H 93 H 83 Respiratory Rate 30 H 24 22 Blood Pressure 141/69 H 123/62 Pulse Oximetry 98 99 97 07/05/18 07:21 07/05/18 07:36 07/05/18 07:41 Temperature Pulse Rate 91 H 78 Respiratory Rate 25 H 20 Blood Pressure 123/67 127/63 Pulse Oximetry 97 97 99 07/05/18 07:51 07/05/18 08:00 07/05/18 08:06 Temperature 98.3 F Pulse Rate 90 85 77 Respiratory Rate 25 H 19 19 Blood Pressure 133/68 128/60 Pulse Oximetry 98 98 97 07/05/18 08:21 07/05/18 08:36 07/05/18 08:51 Temperature Pulse Rate 74 90 93 H Respiratory Rate 19 30 H 33 H Blood Pressure 126/61 132/75 157/75 H Pulse Oximetry 97 98 98 07/05/18 09:00 07/05/18 09:06 07/05/18 09:21 Temperature Pulse Rate 87 85 69 Respiratory Rate 19 17 18 Blood Pressure 157/75 H 136/61 145/71 H Pulse Oximetry 99 99 98 07/05/18 09:36 07/05/18 09:51 07/05/18 10:00 Temperature Pulse Rate 67 68 80 Respiratory Rate 19 18 26 H Blood Pressure 140/67 127/61 Pulse Oximetry 97 97 98 07/05/18 10:06 07/05/18 10:21 07/05/18 10:36 Temperature Pulse Rate 75 67 70 Respiratory Rate 17 17 19 Blood Pressure 140/72 136/72 142/74 H Pulse Oximetry 97 97 99 07/05/18 11:00 Temperature Pulse Rate 74 Respiratory Rate 20 Blood Pressure Pulse Oximetry 98 Intake & Output 07/04/18 07/05/18 07/05/18 18:59 06:59 18:59 Intake Total 456 / 456 351 / 351 Output Total 1200 / 1200 Balance 456 / 456 -849 / -849 Weight 85.9 kg Intake: IV 456 / 456 351 / 351 Cardene Inj 25 MG In NS Inj 240 250 / 250 250 / 250 ML @ 5 MG/HR 50 mls/hr IV.CONT TITRATE PRN Rx#:[id number] Thiamine Inj 100 MG In NS Inj 101 / 101 101 / 101 100 ML @ 100 mls/hr IV.SIG DAILY JAE Rx#:[id number] Keppra Inj 500 MG In NS Inj 100 105 / 105 ML @ 400 mls/hr IV.SIG Q12H [facility] Rx#:[id number] Output: Urine 1200 / 1200 Other: Date of Last Bowel Movement 07/04/18 07/04/18 Weight On Admission 85.9 kg Narrative: L foot plantar medial aspect at level of 1st metatarsophalangeal joint 0.5 cm diameter ulceration , does not appear to probe to bone. Approximately 0.4cm depth. Mild purulence locally, but no palpable abscess noted. Mild localized erythema. Hallux without gross edema/erythema. No crepitus. Sensation diminished to light touch. Results - Labs CBC & Chem 7: 07/05/18 01:33 07/05/18 01:33 Laboratory Results - last 24 hr 07/05/18 07/05/18 07/05/18 01:33 01:33 01:33 CBC w Diff Auto diff final WBC 4.1 RBC 3.58 L Hgb 12.0 L Hct 35.2 L MCV 98.3 MCH 33.5 MCHC 34.1 RDW 13.1 Plt Count 104 L MPV 8.0 Neut % (Auto) 59.3 Lymph % (Auto) 24.1 [place] % (Auto) 15.7 H Eos % (Auto) 0.5 Baso % (Auto) 0.4 Neut # (Auto) 2.5 Lymph # (Auto) 1.0 [place] # (Auto) 0.6 Eos # (Auto) 0.0 Baso # (Auto) 0.0 WBC Differential . Differential Comment . PT 10.6 INR 1.0 APTT 25.4 Sodium 142 Potassium 3.7 Chloride 109 H Carbon Dioxide 23.2 Anion Gap 10 BUN 12 Creatinine 1.10 Estimated GFR 67 L POC Glucose Random Glucose 105 Calcium 8.2 L Total Creatine Kinase 51 Troponin I Less than 0.02 L Triglycerides Cholesterol LDL Cholesterol, Calc HDL Cholesterol Cholesterol/HDL Ratio Nasal Screen MRSA (PCR) Urine Opiates Screen Ur Barbiturates Screen Ur Amphetamines Screen U Benzodiazepines Scrn Urine Cocaine Screen U Cannabinoids Screen Serum Alcohol Blood Type Blood Type Recheck Antibody Screen 07/05/18 07/05/18 07/05/18 01:33 01:33 02:54 CBC w Diff WBC RBC Hgb Hct MCV MCH MCHC RDW Plt Count MPV Neut % (Auto) Lymph % (Auto) [place] % (Auto) Eos % (Auto) Baso % (Auto) Neut # (Auto) Lymph # (Auto) [place] # (Auto) Eos # (Auto) Baso # (Auto) WBC Differential Differential Comment PT INR APTT Sodium Potassium Chloride Carbon Dioxide Anion Gap BUN Creatinine Estimated GFR POC Glucose 93 129 H Random Glucose Calcium Total Creatine Kinase Troponin I Triglycerides Cholesterol LDL Cholesterol, Calc HDL Cholesterol Cholesterol/HDL Ratio Nasal Screen MRSA (PCR) Urine Opiates Screen Ur Barbiturates Screen Ur Amphetamines Screen U Benzodiazepines Scrn Urine Cocaine Screen U Cannabinoids Screen Serum Alcohol Less than 3 Blood Type Blood Type Recheck Antibody Screen 07/05/18 07/05/18 07/05/18 03:00 06:36 07:44 CBC w Diff WBC RBC Hgb Hct MCV MCH MCHC RDW Plt Count MPV Neut % (Auto) Lymph % (Auto) [place] % (Auto) Eos % (Auto) Baso % (Auto) Neut # (Auto) Lymph # (Auto) [place] # (Auto) Eos # (Auto) Baso # (Auto) WBC Differential Differential Comment PT INR APTT Sodium Potassium Chloride Carbon Dioxide Anion Gap BUN Creatinine Estimated GFR POC Glucose 137 H Random Glucose Calcium Total Creatine Kinase Troponin I Triglycerides 172 H Cholesterol 120 LDL Cholesterol, Calc 33 HDL Cholesterol 52.8 Cholesterol/HDL Ratio 2.27 Nasal Screen MRSA (PCR) Not detected Urine Opiates Screen Ur Barbiturates Screen Ur Amphetamines Screen U Benzodiazepines Scrn Urine Cocaine Screen U Cannabinoids Screen Serum Alcohol Blood Type Blood Type Recheck Antibody Screen 07/05/18 07/05/18 07/05/18 07:44 09:00 11:31 CBC w Diff WBC RBC Hgb Hct MCV MCH MCHC RDW Plt Count MPV Neut % (Auto) Lymph % (Auto) [place] % (Auto) Eos % (Auto) Baso % (Auto) Neut # (Auto) Lymph # (Auto) [place] # (Auto) Eos # (Auto) Baso # (Auto) WBC Differential Differential Comment PT INR APTT Sodium Potassium Chloride Carbon Dioxide Anion Gap BUN Creatinine Estimated GFR POC Glucose 132 H Random Glucose Calcium Total Creatine Kinase Troponin I Triglycerides Cholesterol LDL Cholesterol, Calc HDL Cholesterol Cholesterol/HDL Ratio Nasal Screen MRSA (PCR) Urine Opiates Screen Neg Ur Barbiturates Screen Neg Ur Amphetamines Screen Neg U Benzodiazepines Scrn Neg Urine Cocaine Screen Neg U Cannabinoids Screen Neg Serum Alcohol Blood Type O Positive Blood Type Recheck Required Antibody Screen Positive H - Imaging Impressions Head CT 07/05/18 01:33 CONCLUSION: 1. Acute left thalamic hemorrhage without significant mass effect. Report was called by Dr. Mckeon to Dr. He.. Assessment and Plan - Assessment (1) Chronic ulcer of left foot with fat layer exposed Code(s): L97.522 - Non-pressure chronic ulcer of other part of left foot with fat layer exposed Status: Acute (2) Cellulitis of left foot Code(s): L03.116 - Cellulitis of left lower limb Status: Acute - Plan Ordered XR L foot Ordered MRI L foot Ordered ESR NPO after midnight Plan to OR for debridement of ulcer L foot with possible bone biopsy , pending imaging and lab results. Consulted vascular for peripheral vascular evaluation due to wound present x 2+ months
--- NOTE | 2018-07-05 13:31 | ECG ---
Date Performed: 07/05/2018 Time Performed: 01:59:21 PTAGE: 63 years EKG: Sinus rhythm NORMAL ECG NO PREVIOUS TRACING DOCTOR: Helga Lucas Interpretating Date/Time 07/05/2018 13:30:28
[2018-07-05 13:33] LABS: Hemoglobin A1c 5.2 % (4.3-6.0)
[2018-07-05] MEDS ORDERED: Gadobutrol PF 10 MMOL/10 ML Vial (for RAD) IV.SIG ONE (13:33)
--- NOTE | 2018-07-05 13:48 | MR ---
EXAM DATE: 07/05/2018 1:35 PM EST AGE/SEX: 63 years / Male INDICATIONS: Right sided weakness. Left thalamic hemorrhage. CLINICAL DATA: This is the patient's initial encounter. Patient reports that signs and symptoms have been present for 2 days and indicates a pain score of 0/10. MEDICAL/SURGICAL HISTORY: Hypertension. Hypercholesterolemia. Stroke. Gout. Appendectomy. Rotator cuff, left. COMPARISON: [facility], CT HEAD W/O CONTRAST, 07/05/2018. . TECHNIQUE: Multiplanar, multisequence examination of the brain was performed without and with 8cc ml Gadavist (gadobutrol) contrast as a single exam dose. FINDINGS: Cerebrum: There is a left thalamic hemorrhage measuring approximately 2.1 cm involving posterior guzman b internal capsule. This is associated with minimal mass effect. There are scattered periventricular white matter changes Ventricular size is appropriate There are no extra-axial fluid collections appreciated. Posterior fossa fourth ventricle is midline. No focal abnormality is present. On the postcontrast images there is no abnormal contrast enhancement. CONCLUSION: 1. MRI is consistent with acute focal left thalamic hemorrhage without enhancement to suggest underl may mass. 2. Follow-up MRI would be of benefit proximal to 6 weeks to ensure this involving as a small lacunar type hemorrhage.. 3. This does involve the posterior limb of the internal capsule. Electronically signed by: Deng Esteves MD Board Certified Radiologist 07/05/2018 1:47 PM EST
--- NOTE | 2018-07-05 13:55 | MR ---
EXAM DATE: 07/05/2018 1:16 PM EST AGE/SEX: 63 years / Male INDICATIONS: . Ulceration left foot plantar medial aspect at level of 1st metatarsophalangeal jennifer nt. CLINICAL DATA: This is the patient's initial encounter. Patient reports that signs and symptoms have been present for 1 week and indicates a pain score of 2/10. MEDICAL/SURGICAL HISTORY: Stroke. Hypercholesterolemia. Hypertension. Gout. Appendectomy. Rotator cuff, left. COMPARISON: [facility], FOOT COMPLETE LEFT 3V, 07/05/2018. . TECHNIQUE: Multiplanar, multisequence MRI examination was performed without contrast. FINDINGS: There is an ulceration on the plantar aspect of the foot at the level of first metatarsal-phalangeal laryngeal joint. This is increased as subcutaneous extending to the head of the first metatarsal. Thi s does involve flexor tendon complex without evidence for a deep space abscess. I do get a good look at the marrow signal of first metatarsal. Marrow is homogeneous and normal to th e metatarsal phalangeal joint where there are some degenerative changes evident. There is no edema to suggest osteomyelitis. There is no significant fluid within the first MTP joint to suggest septic janet int. There is minimal degenerative changes at the articulation of the cuneiform/cuboid and the third and f ourth metatarsals. CONCLUSION: 1. Findings as above with inflammatory changes evident from skin to undersurface of the first MTP janet int involving flexor tendon of the first phalanx. There are some mild marrow signal alterations that could be only degenerative. Findings are minimal. 2. There is no evidence of deep space abscess Electronically signed by: Deng Esteves MD Board Certified Radiologist 07/05/2018 1:54 PM EST
--- NOTE | 2018-07-05 13:55 | XR ---
EXAM DATE: 07/05/2018 1:05 PM EST AGE/SEX: 63 years / Male INDICATIONS: Right foot ulcer on first digit. CLINICAL DATA: This is the patient's subsequent encounter. Patient reports that signs and symptoms h ave been present for 4 - 6 days and indicates a pain score of 0/10. MEDICAL/SURGICAL HISTORY: Stroke. None. COMPARISON: No prior exams available for comparison. FINDINGS: Soft tissue prominence and ulceration noted on the lateral view in the medial plantar proximal toe. H eterotopic ossification noted near the head of the first metatarsal. There is subtle erosive changes of the proximal first metatarsal. Osseous structures otherwise intact without acute fracture. No radi opaque foreign bodies. CONCLUSION: 1. Soft tissue prominence with ulceration in the medial plantar proximal toe with heterotopic ossifi cation at the head of the first metatarsal and subtle erosive change along the medial proximal first metatarsal. Differential considerations include chronic or prior osteomyelitis. Patient has an MRI ex amination pending. Electronically signed by: Bird Mcmanus MD Board Certified Radiologist 07/05/2018 1:54 PM EST
--- NOTE | 2018-07-05 18:05 | US ---
EXAM DATE: 07/05/2018 6:01 PM EST AGE/SEX: 63 years / Male INDICATIONS: Cerebrovascular accident. CLINICAL DATA: This is the patient's initial encounter. Patient reports that signs and symptoms have been present for 1 day and indicates a pain score of 0/10. MEDICAL/SURGICAL HISTORY: Hypercholesterolemia. Hypertension. GOUT. Stroke. Appendectomy. Ro tator cuff surgery. COMPARISON: No prior exams available for comparison. VELOCITY PARAMETERS: ICA/CCA Ratio: Right 1.6 , Left Unable to obtain. ICA: Right 148.5 cm/sec, Left Unable to obtain. cm/sec CCA: Right 91.8 cm/sec, Left 69.9 cm/sec ECA: Right 146.5 cm/sec, Left 287.7 cm/sec Vertebral: Right 62.8 cm/sec antegrade, Left 40.0 cm/sec antegrade FINDINGS: Right Carotid: Moderate arteriosclerotic plaque is visualized.The waveforms are within normal limits . Left Carotid: Moderate arteriosclerotic plaque is visualized. The waveforms are within normal limits . Other: None. CONCLUSION: 1. Right Internal Carotid Artery: Findings indicate 50-69% stenosis. 2. Left Internal Carotid Artery: Not visualized and may be thrombosed. CTA examination may be obtain ed for further evaluation as clinically appropriate. Electronically signed by: Bird Mcmanus MD Board Certified Radiologist 07/05/2018 6:04 PM EST
--- NOTE | 2018-07-05 18:21 | MB ---
cc: Nicole Aragon MD DATE: 07/05/2018 CONSULTING PHYSICIAN: Nicole Aragon MD, of vascular surgery. REASON FOR CONSULTATION: Ulcerations of the left plantar surface of the foot, peripheral vascular disease, hemorrhagic acute stroke of the left hemisphere, diabetes mellitus. HISTORY OF PRESENT ILLNESS: This pleasant 63-year-old gentleman was admitted through the [facility]. He started complaining about severe headaches yesterday and then states he suffered something like loss of consciousness. He states that he did not lose consciousness, yet he felt he was not "quite there." The patient also noticed weakness in his right arm and leg and some numbness. The patient was transferred to the emergency room. He was found to have a left hemorrhagic acute stroke and severe hypertension. In the process of the workup, he was found to have a left foot proximal metatarsal ulcer and a question arose about vascular supply. PAST MEDICAL HISTORY: Hypercholesteremia, hypertension, previous right-sided stroke. PAST SURGICAL HISTORY: Appendectomy, rotator cuff surgery. SOCIAL HISTORY: The patient used to smoke in the past. Socially drinks. PHYSICAL EXAMINATION: GENERAL: Reveals a pleasant 63-year-old gentleman. HEENT: Normocephalic. No trauma to the head. Pupils appear to be equal and reactive. Extraocular muscles intact. No hemotympanum. No Jaeger sign. NECK: Bilateral carotid pulses. I do not perceive any bruits. CHEST: Bilateral breath sounds. HEART: Regular rhythm. ABDOMEN: Soft. Active bowel sounds. No rebound, no guarding, no masses. EXTREMITIES: The patient has palpable femoral, palpable popliteal, palpable dorsalis pedis and posterior tibial pulses bilaterally. He has some thickness and chronic deformity of his right hallux. On the left side, the patient has a small ulcerated area over the first metatarsal head with some discoloration. NEUROLOGIC: The patient is slightly weaker on his right side. He has some weakness of the right leg and then over the right arm. 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 IMPRESSION AND RECOMMENDATIONS: I reviewed laboratory and diagnostic procedures. The gentleman has excellent distal pulses in both legs that are palpable proximally and distally and capillary refill is normal. In the face of this, the patient does not require any further vascular workup. As far as the stroke is concerned, the patient has had a previous stroke and I am not sure how this was handled and what was done. The patient lives in [place], so their system may be different in how they go about it. In this particular situation, an ultrasound of the carotids is appropriate, and if any other abnormalities are found, we will go from there. I thank you very much for the referral. MD KIARA Swift/anil , 05:24 PM , 05:32 PM
--- NOTE | 2018-07-05 23:21 | MB ---
cc: Tu Concepcion MD DATE: 07/05/2018 REASON FOR CONSULTATION: Hemorrhagic stroke. HISTORY OF PRESENT ILLNESS: Mr. Licea is a 63-year-old male with a history of hypertension, hyperlipidemia and TIA that happened in September of 2017 with symptoms of right-sided weakness that resolved spontaneously. He presented to the [facility] ER with sudden onset of headache and right upper and lower extremity numbness and weakness. Reportedly, the patient was working on the computer this morning around 12:45 a.m. when he had a sudden onset headache. He tried to stand up and walk, but then he realized that his right arm and leg were weak and numb. Before arriving to the emergency room, he began to have right facial numbness as well. Denies speech difficulty or difficulty comprehending, double vision, face droop, disorientation or loss of consciousness. CT head revealed acute left thalamic hemorrhage; thus, he was transferred to [facility] for further management and workup. The patient is seen with his at the bedside, good historian, and while a tech is working on cardiac echo. REVIEW OF SYSTEMS: A 12-point review of system is negative, except for what is stated in the HPI. PAST MEDICAL HISTORY: Gout, hyperlipidemia, hypertension and TIA. PAST SURGICAL HISTORY: Appendectomy, rotator cuff surgery. SOCIAL HISTORY: Former smoker. Drinks alcohol, 6 drinks per night. No history of drug abuse. Lives with . MEDICATIONS: 1. Nicardipine. 2. Magnesium sulfate. 3. Celecoxib. 4. Citalopram. 5. Atorvastatin. 6. Zopiclone 7. Escitalopram. 8. Uloric. 9. Hydromorphone. 10. Meloxicam. 11. Tadalafil. ALLERGIES: NO KNOWN ALLERGIES. FAMILY HISTORY: Noncontributory. RESULTS REVIEW: Labs: Hemoglobin 12, white blood cells 4. Chloride 109, sodium 142, potassium 3.7, BUN 12, creatinine 1.1. Troponin less than 0.02. Head CT scan revealed acute left thalamic hemorrhage without significant mass effect. Head MRI revealed acute focal left thalamic hemorrhage without . Carotid Doppler: Right ICA 50%-69% stenosis. Left ICA not visualized and may be thrombosed. CTA may be obtained for further evaluation. PHYSICAL EXAMINATION: GENERAL: Awake, alert, overweight, pleasant, good historian. HEENT: Atraumatic, normocephalic. Intact hearing. Intact vision. NECK: Supple. No carotid bruit. PULMONARY: Clear to auscultation. No wheezes. CARDIOVASCULAR: Regular rate and rhythm. ABDOMEN: Soft, nontender. EXTREMITIES: Moves extremities equally. NEUROLOGIC: Awake, alert, oriented to time, person and place. No dysarthria and no dysphasia. Diminished sensation in the right side of the face. Numbness of the right upper and lower extremities, 5/5 left upper and lower extremity. Right shoulder abduction 4+/5, elbow extension 4+/5, wrist extension 5-/5, hip flexion 5-/5, knee extension 5-/5, foot dorsiflexion 5/5. PSYCHIATRIC: Appropriate mood and affect. No hallucinations. ASSESSMENT AND PLAN: 1. Acute hemorrhagic left thalamic stroke. 2. Hypertensive intracerebral hemorrhage with residual right-sided hemiparesis and right-sided hemianesthesia including the face. 3. History of transient ischemic attack. 4. Daily alcohol. 5. Gout. 6. Hyperlipidemia. 7. Neuro checks every 1 hour. 8. No antiplatelet or anticoagulation. 9. Carotid artery disease with right internal carotid artery 50%-69% stenosis and nonvisualized left internal carotid artery. 10. CTA neck. 11. Deep venous thrombosis prophylaxis/sequential compression devices. 12. Gastrointestinal prophylaxis. 13. Maintain goal blood pressure between 145-150/80-85. 14. Neurology will follow up. Thank you for allowing me to participate in the care of your patient. MD TAVON Nugent/rw/do , 09:04 PM , 09:16 PM
[2018-07-06] MEDS: Chlorhexidine Gluconate 2% 1 Pack (2 Cloths) TOPICAL SCH (03:43)
[2018-07-06 04:05] LABS: Baso % (Auto) 0.7 % (0.0-2.0); Eos % (Auto) 0.6 % (0.0-4.0); Hematocrit 37.3 % (39.0-51.0); Lymph # (Auto) 0.7 th/mm3 (1.0-4.8); Lymph % (Auto) 13.1 % (9.0-44.0); Mean Corpuscular HGB Conc 34.9 % (32.0-36.0); Mean Corpuscular Hemoglobin 34.2 pg (27.0-34.0); Mean Corpuscular Volume 97.8 fL (80.0-100.0); Mean Platelet Volume 8.9 fL (7.0-11.0); Mono # (Auto) 0.5 th/mm3 (0.0-0.9); Mono % (Auto) 10.6 % (0.0-8.0); Neut # (Auto) 3.9 th/mm3 (1.8-7.7); Platelet Count 103 th/mm3 (150-450); Red Blood Count 3.81 mil/mm3 (4.50-5.90); Red Cell Distribution Width 12.9 % (11.6-17.2); White Blood Count 5.2 th/mm3 (4.0-11.0)
[2018-07-06 04:25] LABS: Albumin 3.2 g/dL (3.4-5.0); Anion Gap 9 meq/L (5-15); Aspartate Aminotransferase 74 U/L (15-37); Blood Urea Nitrogen 8 mg/dL (7-18); Calcium 8.6 mg/dL (8.5-10.1); Carbon Dioxide 24.6 meq/L (21.0-32.0); Chloride 107 meq/L (98-107); Glomerular Filtration Rate 88 mL/min (>89); Glucose,Random 101 mg/dL (74-106); Magnesium 1.7 mg/dL (1.5-2.5); Potassium 3.2 meq/L (3.5-5.1); Sodium 141 meq/L (136-145)
[2018-07-06 04:27] LABS: Alanine Aminotransferase 57 U/L (12-78); Phosphorus 2.1 mg/dL (2.5-4.9)
[2018-07-06 04:29] LABS: Alkaline Phosphatase 120 U/L (45-117); Total Protein 7.4 g/dL (6.4-8.2)
--- NOTE | 2018-07-06 05:08 | P.PNCC ---
Subjective Subjective Remarks/Hospital Course: 63-year-old male with history of hypertension, dyslipidemia, and TIA who presented to the [place] [facility] with sudden-onset headache and right upper/ lower extremity numbness and weakness. The patient states that he was working on his computer this morning around 00:45 when he had a sudden- onset headache. He tried to stand up and walk but realized that his right arm and leg were weak and numb. He reports that just prior to arriving in the ED he began to have right facial numbness as well. Denies aphasia, dysarthria, visual disturbance, facial droop, or confusion. He had a CTH performed with showed an acute left thalamic hemorrhagic stroke, so he was transferred to the [facility] for surgical critical care and neurology consultation. 07/06: No evidence overnight. The MRI ruled out underlying commands of hemorrhagic stroke. Neurologically stable Objective Vital Signs / I&O: Vital Signs 07/05/18 05:00 07/05/18 05:06 07/05/18 05:21 Temperature Pulse Rate 87 84 87 Respiratory Rate 19 20 26 H Blood Pressure 132/58 L 126/71 Pulse Oximetry 97 98 98 07/05/18 05:36 07/05/18 05:51 07/05/18 06:00 Temperature Pulse Rate 96 H 92 H 88 Respiratory Rate 26 H 13 23 Blood Pressure 128/67 131/63 Pulse Oximetry 98 97 97 07/05/18 06:06 07/05/18 06:21 07/05/18 06:36 Temperature Pulse Rate 88 94 H 89 Respiratory Rate 21 25 H 18 Blood Pressure 133/67 134/66 128/62 Pulse Oximetry 97 98 97 07/05/18 06:51 07/05/18 07:00 07/05/18 07:06 Temperature Pulse Rate 97 H 93 H 83 Respiratory Rate 30 H 24 22 Blood Pressure 141/69 H 123/62 Pulse Oximetry 98 99 97 07/05/18 07:21 07/05/18 07:36 07/05/18 07:41 Temperature Pulse Rate 91 H 78 Respiratory Rate 25 H 20 Blood Pressure 123/67 127/63 Pulse Oximetry 97 97 99 07/05/18 07:51 07/05/18 08:00 07/05/18 08:06 Temperature 98.3 F Pulse Rate 90 85 77 Respiratory Rate 25 H 19 19 Blood Pressure 133/68 128/60 Pulse Oximetry 98 98 97 07/05/18 08:21 07/05/18 08:36 07/05/18 08:51 Temperature Pulse Rate 74 90 93 H Respiratory Rate 19 30 H 33 H Blood Pressure 126/61 132/75 157/75 H Pulse Oximetry 97 98 98 07/05/18 09:00 07/05/18 09:06 07/05/18 09:21 Temperature Pulse Rate 87 85 69 Respiratory Rate 19 17 18 Blood Pressure 157/75 H 136/61 145/71 H Pulse Oximetry 99 99 98 07/05/18 09:36 07/05/18 09:51 07/05/18 10:00 Temperature Pulse Rate 67 68 80 Respiratory Rate 19 18 26 H Blood Pressure 140/67 127/61 Pulse Oximetry 97 97 98 07/05/18 10:06 07/05/18 10:21 07/05/18 10:36 Temperature Pulse Rate 75 67 70 Respiratory Rate 17 17 19 Blood Pressure 140/72 136/72 142/74 H Pulse Oximetry 97 97 99 07/05/18 11:00 07/05/18 11:06 07/05/18 11:58 Temperature Pulse Rate 74 69 73 Respiratory Rate 20 17 25 H Blood Pressure 122/68 Pulse Oximetry 98 97 97 07/05/18 11:59 07/05/18 12:00 07/05/18 14:00 Temperature Pulse Rate 67 74 Respiratory Rate 19 15 Blood Pressure 139/75 Pulse Oximetry 98 98 07/05/18 14:07 07/05/18 14:10 07/05/18 15:00 Temperature Pulse Rate 74 66 Respiratory Rate 18 17 Blood Pressure 151/74 H Pulse Oximetry 95 98 97 07/05/18 15:37 07/05/18 16:00 07/05/18 17:00 Temperature 98.4 F Pulse Rate 66 65 63 Respiratory Rate 19 18 17 Blood Pressure 147/74 H 156/84 H 150/75 H Pulse Oximetry 96 97 96 07/05/18 17:31 07/05/18 18:00 07/05/18 19:00 Temperature Pulse Rate 78 67 68 Respiratory Rate 17 18 Blood Pressure 158/77 H 167/77 H Pulse Oximetry 98 96 07/05/18 19:26 07/05/18 20:00 07/05/18 21:00 Temperature 98.2 F Pulse Rate 64 68 Respiratory Rate 18 18 Blood Pressure 178/80 H 167/81 H Pulse Oximetry 97 97 97 07/05/18 22:00 07/05/18 22:17 07/05/18 22:32 Temperature Pulse Rate 61 69 73 Respiratory Rate 17 19 19 Blood Pressure 188/84 H 170/81 H 151/73 H Pulse Oximetry 97 97 95 07/05/18 22:47 07/05/18 23:00 07/05/18 23:02 Temperature Pulse Rate 74 69 69 Respiratory Rate 23 26 H 26 H Blood Pressure 154/77 H 155/74 H Pulse Oximetry 96 96 96 07/05/18 23:17 07/05/18 23:32 07/05/18 23:47 Temperature Pulse Rate 76 77 78 Respiratory Rate 19 19 19 Blood Pressure 161/79 H 157/80 H 152/79 H Pulse Oximetry 96 96 94 L 07/06/18 00:00 07/06/18 00:02 07/06/18 00:17 Temperature Pulse Rate 83 74 78 Respiratory Rate 18 20 19 Blood Pressure 155/77 H 156/77 H Pulse Oximetry 97 97 96 07/06/18 00:32 07/06/18 00:47 07/06/18 01:00 Temperature Pulse Rate 78 81 79 Respiratory Rate 20 19 19 Blood Pressure 157/77 H 157/78 H Pulse Oximetry 94 L 94 L 95 07/06/18 01:02 07/06/18 01:17 07/06/18 01:32 Temperature Pulse Rate 80 77 80 Respiratory Rate 18 19 18 Blood Pressure 163/78 H 152/74 H 151/77 H Pulse Oximetry 95 95 95 07/06/18 01:47 07/06/18 02:00 07/06/18 02:02 Temperature Pulse Rate 85 77 76 Respiratory Rate 19 18 19 Blood Pressure 150/76 H 149/78 H Pulse Oximetry 96 94 L 94 L 07/06/18 02:17 07/06/18 02:32 07/06/18 02:47 Temperature Pulse Rate 79 84 84 Respiratory Rate 18 21 16 Blood Pressure 139/82 145/81 H 150/77 H Pulse Oximetry 94 L 96 96 07/06/18 03:00 07/06/18 03:02 Temperature Pulse Rate 80 76 Respiratory Rate 18 19 Blood Pressure 145/73 H Pulse Oximetry 97 95 Intake & Output 07/05/18 07/05/18 07/06/18 06:59 18:59 06:59 Intake Total 456 / 456 2256 / 2256 Output Total 2800 / 2800 1225 / 1225 Balance 456 / 456 -544 / -544 -1225 / -1225 Weight 85.9 kg Intake: IV 456 / 456 1456 / 1456 NS Inj 1,000 ML @ 70 mls/hr IV. 1000 / 1000 CONT .[id number] JAE Rx#: [id number] Cardene Inj 25 MG In NS Inj 240 250 / 250 250 / 250 ML @ 5 MG/HR 50 mls/hr IV.CONT TITRATE PRN Rx#:[id number] Thiamine Inj 100 MG In NS Inj 101 / 101 101 / 101 100 ML @ 100 mls/hr IV.SIG DAILY JAE Rx#:[id number] Keppra Inj 500 MG In NS Inj 100 105 / 105 105 / 105 ML @ 400 mls/hr IV.SIG Q12H JAE Rx#:[id number] Oral 800 / 800 Output: Urine 2800 / 2800 1225 / 1225 Other: Date of Last Bowel Movement 07/04/18 07/04/18 07/04/18 Weight On Admission 85.9 kg Result Diagrams: 07/06/18 02:46 07/06/18 02:46 Objective Remarks: GEN: Well-nourished elderly male, no acute distress HEENT: PERRL, no apparent facial droop NECK: Trachea midline CARDIO: Regular rate and rhythm PULM: Clear to auscultation bilaterally ABD/GI: Soft, non-distended, non-tender in all quadrants EXT/MSK: No peripheral edema SKIN: Warm and well-perfused, lesion to left foot unchanged from previous NEURO: Awake, alert, and oriented x 3; speech clear and fluent, no slurred speech or aphasia PSYCH: Appropriate affect Assessment and Plan - Problem List (1) Hemorrhagic cerebrovascular accident (CVA) Code(s): I61.9 - Nontraumatic intracerebral hemorrhage, unspecified Status: Acute (2) Hypertension Code(s): I10 - Essential (primary) hypertension Status: Acute (3) Dyslipidemia Code(s): E78.5 - Hyperlipidemia, unspecified Status: Acute (4) Foot ulcer Code(s): L97.509 - Non-pressure chronic ulcer of other part of unspecified foot with unspecified severity Status: Acute (5) Alcohol use disorder Status: Acute - Assessment and Plan Plan: 63yM presenting with acute hemorrhagic CVA, right-sided weakness/ numbness, and left foot ulcerated wound NEURO: Acute hemorrhagic CVA of left thalamus, likely hypertensive ICH Right-sided hemiplegia Right-sided numbness History of TIA Alcohol use disorder History of depression -BP control as noted below -Aspirin contraindicated in the setting of ICH -Neurology and neurosurgery consulted, no surgical interventions planned -MRI brain showed stable thalamic hemorrhage with extension into internal capsule; will need follow up MRI in 6 weeks as an outpatient * MRA of neck pending, patient was noted to have carotid stenosis on the right and non-visualized left ICA on carotid duplex -PT/OT/speech therapy -Monitor for signs of alcohol withdrawal; would like to avoid benzodiazepines unless necessary to avoid clouding mental status -Continue thiamine supplementation -Continue Keppra for seizure prophylaxis -Continue home doses of citalopram/ escitalopram -OK to decrease neuro checks to q2h as patient has been stable over the past 24 hours; if he remains stable this afternoon, consider decreasing to q4h CARDIO: Hypertension Dyslipidemia -Cardiac monitoring -F/U results of 2D echo -Goal SBP between < 140 -Patient is on non-formulary ANTONINA-I at home, continue lisinopril here -Continue PO lopressor -Continue statin PULM: -No active issues F/E/N: -Patient seen by [facility], passed for regular thins but currently NPO for possible OR with podiatry today (see below) -Maintenance IVF, d/c when diet is started -ICU electrolyte protocol ENDO: -HbA1c 5.2 -NISS as needed, q6h while NPO MSK/SKIN: Left foot wound/ ulcer -Podiatry/ vascular surgery following. No vascular interventions planned. Imaging of foot showed possible chronic vs previous osteomyelitis. NPO for possible OR with Dr. Mancia today for debridement/ biopsy. -ESR 25 PROPHY: -SCDs only, chemical DVT prophylaxis contraindicated in the setting of ICH -PPI OVERALL: This patient is critically ill but stable. Level 3 follow up To help prompt me to consider important information that might be impacting today's encounter and assessment, information from prior notes written by myself or my colleagues may have been "brought forward" into today's note. My signature on this note, however, is an attestation that I personally performed the exam, history, and/or decision-making noted today, and, unless otherwise indicated, the interactions with patient, family, and staff as well as the review of records all occurred today. I also attest that the listed assessment and stated plan reflect my best clinical judgment today based on the combination of historical information, prior notes, and today's exam/ interactions. Code Status: Full
[2018-07-06] MEDS: Insulin NovoLIN Regular Correctional Sugar Inj SQ SCH ×3 (05:29→18:01)
[2018-07-06 08:31] LABS: Baso % (Auto) 0.4 % (0.0-2.0); Eos % (Auto) 0.8 % (0.0-4.0); Hematocrit 36.9 % (39.0-51.0); Hemoglobin 12.6 gm/dL (13.0-17.0); Lymph # (Auto) 0.9 th/mm3 (1.0-4.8); Lymph % (Auto) 16.1 % (9.0-44.0); Mean Corpuscular HGB Conc 34.1 % (32.0-36.0); Mean Corpuscular Hemoglobin 33.3 pg (27.0-34.0); Mean Corpuscular Volume 97.6 fL (80.0-100.0); Mono # (Auto) 0.6 th/mm3 (0.0-0.9); Mono % (Auto) 11.1 % (0.0-8.0); Neut # (Auto) 3.9 th/mm3 (1.8-7.7); Neut % (Auto) 71.6 % (16.0-70.0); Platelet Count 110 th/mm3 (150-450); Red Blood Count 3.78 mil/mm3 (4.50-5.90); Red Cell Distribution Width 12.9 % (11.6-17.2); White Blood Count 5.5 th/mm3 (4.0-11.0)
[2018-07-06 08:41] LABS: Prothrombin Time 10.4 sec (9.8-11.6)
--- NOTE | 2018-07-06 08:43 | ECHRPT ---
Indication: CVA/TIA CONCLUSIONS Normal left ventricular size. Wall thickness is normal. Nonobstructive prominent basal hypertrophy is present consistent with sigmoid septum. The left ventricular systolic function is normal with an estimated ejection fraction in the range of 55-60%. Trace mitral valve regurgitation. There is trace tricuspid valve regurgitation. The estimated pulmonary arterial pressure is 40 mmHg. Trivial pulmonary valve regurgitation. BP: / HR: Rhythm: MEASUREMENTS (Male / Female) Normal Values Technical Quality: 2D ECHO LV Diastolic Diameter PLAX 4.6 cm 4.2 - 5.9 / 3.9 - 5.3 cm LV Systolic Diameter PLAX 3.6 cm IVS Diastolic Thickness 1.5 cm 0.6 - 1.0 / 0.6 - 0.9 cm LVPW Diastolic Thickness 1.0 cm 0.6 - 1.0 / 0.6 - 0.9 cm LV Relative Wall Thickness 0.5 RV Internal Dim ED PLAX 2.9 cm LVOT Diameter 1.8 cm Aortic Root Diameter 3.0 cm LA Systolic Diameter LX 3.9 cm 3.0 - 4.0 / 2.7 - 3.8 cm DOPPLER AV Peak Velocity 162.0 cm/s AV Peak Gradient 10.5 mmHg LVOT Peak Velocity 139.0 cm/s LVOT Peak Gradient 7.7 mmHg AV Area Cont Eq pk 2.2 cm Mitral E Point Velocity 78.5 cm/s Mitral A Point Velocity 77.5 cm/s Mitral E to A Ratio 1.0 TR Peak Velocity 274.0 cm/s TR Peak Gradient 30.0 mmHg Right Atrial Pressure 10.0 mmHg Pulmonary Artery Systolic Pressu 40.0 mmHg Right Ventricular Systolic Press 40.0 mmHg PV Peak Velocity 132.0 cm/s PV Peak Gradient 7.0 mmHg FINDINGS LEFT VENTRICLE Normal left ventricular size. Wall thickness is normal. Nonobstructive prominent basal hypertrophy is present consistent with sigmoid septum. The left ventricular systolic function is normal with an estimated ejection fraction in the range of 55-60%. RIGHT VENTRICLE Normal right ventricular size and systolic function. LEFT ATRIUM The left atrial size is normal. RIGHT ATRIUM The right atrial size is normal. ATRIAL SEPTUM Normal atrial septal thickness without atrial level shunting by limited color doppler interrogation. AORTA The aortic root and proximal ascending aorta are normal in size on limited imaging. MITRAL VALVE Trace mitral valve regurgitation. AORTIC VALVE Trileaflet aortic valve. No aortic valve stenosis or regurgitation. TRICUSPID VALVE There is trace tricuspid valve regurgitation. The estimated pulmonary arterial pressure is 40 mmHg. PULMONARY VALVE Trivial pulmonary valve regurgitation. VESSELS The inferior vena cava was not well visualized. PERICARDIUM No pericardial effusion. Troy Tom MD (Electronically Signed) Final Date:06 July 2018 08:42
[2018-07-06 08:56] LABS: Albumin 3.1 g/dL (3.4-5.0); Anion Gap 8 meq/L (5-15); Aspartate Aminotransferase 64 U/L (15-37); Blood Urea Nitrogen 9 mg/dL (7-18); Calcium 8.3 mg/dL (8.5-10.1); Carbon Dioxide 24.7 meq/L (21.0-32.0); Chloride 108 meq/L (98-107); Glomerular Filtration Rate 79 mL/min (>89); Glucose,Random 95 mg/dL (74-106); Magnesium 1.7 mg/dL (1.5-2.5); Potassium 3.4 meq/L (3.5-5.1); Sodium 141 meq/L (136-145)
[2018-07-06 08:57] LABS: Alanine Aminotransferase 50 U/L (12-78)
[2018-07-06 08:59] LABS: Alkaline Phosphatase 115 U/L (45-117); Total Protein 7.1 g/dL (6.4-8.2)
[2018-07-06] MEDS: Lisinopril 10 MG Tablet PO SCH ×2 (09:32→09:34)
[2018-07-06] MEDS: Metoprolol Tartrate 25 MG Tablet PO SCH ×2 (09:32→20:23)
[2018-07-06] MEDS: Citalopram 20 MG Tablet PO SCH (09:32)
[2018-07-06] MEDS: Famotidine PF Inj 20 MG/2 ML Vial IV.PUSH SCH ×2 (09:33→20:27)
[2018-07-06] MEDS: levETIRAcetam 500 MG Tablet PO SCH ×2 (09:33→20:24)
[2018-07-06] MEDS: Senna/Docusate Sodium 8.6/50 MG Tablet PO SCH ×2 (09:33→20:28)
[2018-07-06] MEDS: Famotidine 20 MG Tablet PO SCH ×2 (09:33→20:24)
[2018-07-06] MEDS ORDERED: hydrALAZINE HCl Inj 20 MG/ML Vial IV.PUSH PRN (09:49)
[2018-07-06] MEDS ORDERED: Labetalol HCl Inj 20 MG/4 ML Vial IV.SIG PRN (10:30)
--- NOTE | 2018-07-06 10:53 | P.PNIM ---
Subjective Interval history: Follow-up for acute hemorrhagic left thalamus CVA. Patient is currently doing well. He is on room air. Denies any chest pain, shortness of breath, fever or chills. He reports significant improvement of his right- sided weakness. Physical Exam Vital signs: Vital Signs 07/05/18 11:00 07/05/18 11:06 07/05/18 11:58 Temperature Pulse Rate 74 69 73 Respiratory Rate 20 17 25 H Blood Pressure 122/68 Pulse Oximetry 98 97 97 07/05/18 11:59 07/05/18 12:00 07/05/18 14:00 Temperature Pulse Rate 67 74 Respiratory Rate 19 15 Blood Pressure 139/75 Pulse Oximetry 98 98 07/05/18 14:07 07/05/18 14:10 07/05/18 15:00 Temperature Pulse Rate 74 66 Respiratory Rate 18 17 Blood Pressure 151/74 H Pulse Oximetry 95 98 97 07/05/18 15:37 07/05/18 16:00 07/05/18 17:00 Temperature 98.4 F Pulse Rate 66 65 63 Respiratory Rate 19 18 17 Blood Pressure 147/74 H 156/84 H 150/75 H Pulse Oximetry 96 97 96 07/05/18 17:31 07/05/18 18:00 07/05/18 19:00 Temperature Pulse Rate 78 67 68 Respiratory Rate 17 18 Blood Pressure 158/77 H 167/77 H Pulse Oximetry 98 96 07/05/18 19:26 07/05/18 20:00 07/05/18 21:00 Temperature 98.2 F Pulse Rate 64 68 Respiratory Rate 18 18 Blood Pressure 178/80 H 167/81 H Pulse Oximetry 97 97 97 07/05/18 22:00 07/05/18 22:17 07/05/18 22:32 Temperature Pulse Rate 61 69 73 Respiratory Rate 17 19 19 Blood Pressure 188/84 H 170/81 H 151/73 H Pulse Oximetry 97 97 95 07/05/18 22:47 07/05/18 23:00 07/05/18 23:02 Temperature Pulse Rate 74 69 69 Respiratory Rate 23 26 H 26 H Blood Pressure 154/77 H 155/74 H Pulse Oximetry 96 96 96 07/05/18 23:17 07/05/18 23:32 07/05/18 23:47 Temperature Pulse Rate 76 77 78 Respiratory Rate 19 19 19 Blood Pressure 161/79 H 157/80 H 152/79 H Pulse Oximetry 96 96 94 L 07/06/18 00:00 07/06/18 00:02 07/06/18 00:17 Temperature Pulse Rate 83 74 78 Respiratory Rate 18 20 19 Blood Pressure 155/77 H 156/77 H Pulse Oximetry 97 97 96 07/06/18 00:32 07/06/18 00:47 07/06/18 01:00 Temperature Pulse Rate 78 81 79 Respiratory Rate 20 19 19 Blood Pressure 157/77 H 157/78 H Pulse Oximetry 94 L 94 L 95 07/06/18 01:02 07/06/18 01:17 07/06/18 01:32 Temperature Pulse Rate 80 77 80 Respiratory Rate 18 19 18 Blood Pressure 163/78 H 152/74 H 151/77 H Pulse Oximetry 95 95 95 07/06/18 01:47 07/06/18 02:00 07/06/18 02:02 Temperature Pulse Rate 85 77 76 Respiratory Rate 19 18 19 Blood Pressure 150/76 H 149/78 H Pulse Oximetry 96 94 L 94 L 07/06/18 02:17 07/06/18 02:32 07/06/18 02:47 Temperature Pulse Rate 79 84 84 Respiratory Rate 18 21 16 Blood Pressure 139/82 145/81 H 150/77 H Pulse Oximetry 94 L 96 96 07/06/18 03:00 07/06/18 03:02 07/06/18 03:17 Temperature Pulse Rate 80 76 71 Respiratory Rate 18 19 19 Blood Pressure 145/73 H 154/78 H Pulse Oximetry 97 95 95 07/06/18 03:32 07/06/18 03:47 07/06/18 04:00 Temperature 98.6 F Pulse Rate 71 77 68 Respiratory Rate 18 18 18 Blood Pressure 150/76 H 155/78 H Pulse Oximetry 95 96 96 07/06/18 04:02 07/06/18 04:17 07/06/18 04:32 Temperature Pulse Rate 69 71 77 Respiratory Rate 19 5 L 19 Blood Pressure 160/78 H 158/72 H 150/77 H Pulse Oximetry 96 95 95 07/06/18 04:47 07/06/18 05:00 07/06/18 05:02 Temperature Pulse Rate 74 72 70 Respiratory Rate 17 18 17 Blood Pressure 151/77 H 158/78 H Pulse Oximetry 95 95 95 07/06/18 05:17 07/06/18 05:32 07/06/18 05:47 Temperature Pulse Rate 72 73 76 Respiratory Rate 18 17 16 Blood Pressure 144/80 H 168/81 H 158/72 H Pulse Oximetry 96 96 96 07/06/18 06:00 07/06/18 06:02 07/06/18 06:17 Temperature Pulse Rate 74 77 79 Respiratory Rate 22 23 20 Blood Pressure 160/79 H 152/73 H Pulse Oximetry 96 96 96 07/06/18 06:32 07/06/18 08:02 Temperature Pulse Rate 69 Respiratory Rate 18 Blood Pressure 150/79 H Pulse Oximetry 95 97 Intake & Output 07/05/18 07/06/18 07/06/18 18:59 06:59 18:59 Intake Total 2256 / 2256 105 / 105 Output Total 2800 / 2800 1625 / 1625 Balance -544 / -544 -1520 / -1520 Weight 85.9 kg Intake: IV 1456 / 1456 105 / 105 NS Inj 1,000 ML @ 70 mls/hr IV. 1000 / 1000 CONT .[id number] [facility] Rx#: [id number] Cardene Inj 25 MG In NS Inj 240 250 / 250 ML @ 5 MG/HR 50 mls/hr IV.CONT TITRATE PRN Rx#:[id number] Thiamine Inj 100 MG In NS Inj 101 / 101 100 ML @ 100 mls/hr IV.SIG DAILY [facility] Rx#:[id number] Keppra Inj 500 MG In NS Inj 100 105 / 105 105 / 105 ML @ 400 mls/hr IV.SIG Q12H [facility] Rx#:[id number] Oral 800 / 800 Output: Urine 2800 / 2800 1625 / 1625 Other: Date of Last Bowel Movement 07/04/18 07/04/18 Narrative: GENERAL: Well-nourished, well-developed patient. SKIN: Warm and dry. HEAD: Normocephalic. EYES: No scleral icterus. No injection or drainage. NECK: Supple, trachea midline. No JVD or lymphadenopathy. CARDIOVASCULAR: Regular rate and rhythm without murmurs, gallops, or rubs. RESPIRATORY: Breath sounds equal bilaterally. No accessory muscle use. GASTROINTESTINAL: Abdomen soft, non-tender, nondistended. MUSCULOSKELETAL: No cyanosis, or edema. Right upper extremity is slightly weaker than left. Right lower extremities strength appears to be equal. BACK: Nontender without obvious deformity. No CVA tenderness. Results Labs CBC & Chem 7: 07/06/18 07:34 07/06/18 07:34 Imaging Imaging: Impressions Carotid Doppler Study 07/05/18 00:00 CONCLUSION: 1. Right Internal Carotid Artery: Findings indicate 50-69% stenosis. 2. Left Internal Carotid Artery: Not visualized and may be thrombosed. CTA examination may be obtained for further evaluation as clinically appropriate. Foot MRI 07/05/18 00:00 CONCLUSION: 1. Findings as above with inflammatory changes evident from skin to undersurface of the first MTP joint involving flexor tendon of the first phalanx. There are some mild marrow signal alterations that could be only degenerative. Findings are minimal. 2. There is no evidence of deep space abscess Foot X-Ray 07/05/18 00:00 CONCLUSION: 1. Soft tissue prominence with ulceration in the medial plantar proximal toe with heterotopic ossification at the head of the first metatarsal and subtle erosive change along the medial proximal first metatarsal. Differential considerations include chronic or prior osteomyelitis. Patient has an MRI examination pending. Head MRI 07/05/18 00:00 CONCLUSION: 1. MRI is consistent with acute focal left thalamic hemorrhage without enhancement to suggest underlying mass. 2. Follow-up MRI would be of benefit proximal to 6 weeks to ensure this involving as a small lacunar type hemorrhage.. 3. This does involve the posterior limb of the internal capsule. Assessment and Plan (1) Hemorrhagic cerebrovascular accident (CVA): Code(s): I61.9 - Nontraumatic intracerebral hemorrhage, unspecified Status: Acute (2) Hypertension: Code(s): I10 - Essential (primary) hypertension Status: Acute (3) Dyslipidemia: Code(s): E78.5 - Hyperlipidemia, unspecified Status: Acute (4) Foot ulcer: Code(s): L97.509 - Non-pressure chronic ulcer of other part of unspecified foot with unspecified severity Status: Acute (5) Alcohol use disorder: Status: Acute Plan Mr. Chauhan is a pleasant 63-year-old male from [place] with history of hypertension, dyslipidemia, and TIA who presented to the [place] [facility] on 07/05/2018 with sudden-onset headache and right upper/ lower extremity numbness and weakness. A CT study showed acute left thalamic hemorrhagic stroke. Acute left thalamic hemorrhagic cerebrovascular accident History of TIA Appreciate neurology, neurosurgery input. Patient was on aspirin 81 mg daily prior to this incident. Continue atorvastatin 80 mg daily Carotid Doppler ultrasound showed nonvisualized and possibly thrombosed left internal carotid artery. Per neurology, MRA neck pending. Will request Dr. Sylvester to review Carotid US findings. Hypertension Anxiety Continue lisinopril 10 mg p.o. daily, IV labetalol and hydralazine as needed. Currently systolic blood pressure in the 150s. If needed, will increase lisinopril to 20 mg p.o. daily. Goal blood pressure systolic within 140-160 range Continue alprazolam 0.5 mg p.o. every 6 hours as needed Alcohol abuse Continue folic acid and thiamine. Full code. SCDs. Progress Note: Quality VTE Deep Vein Thrombosis/Pulmonary Embolism Present on Admission: No _ (1) Hypertension Qualifiers: Hypertension type: (2) Foot ulcer Qualifiers: Laterality: Non-pressure ulcer stage:
[2018-07-06] MEDS ORDERED: Gadobutrol PF 10 MMOL/10 ML Vial (for RAD) IV.SIG ONE (11:23)
--- NOTE | 2018-07-06 11:30 | MR ---
EXAM DATE: 07/06/2018 11:18 AM EST AGE/SEX: 63 years / Male INDICATIONS: . Left sided hemorrhagic thalamic stroke CLINICAL DATA: This is the patient's subsequent encounter. Patient reports that signs and symptoms h ave been present for 2 days and indicates a pain score of 3/10. MEDICAL/SURGICAL HISTORY: Hypertension. Hypercholesterolemia. CVA Appendectomy. Rotator cuff repair COMPARISON: C, US CAROTID DOPPLER BI, 07/05/2018. HPO, CT HEAD W/O CONTRAST, 07/05/2018. . TECHNIQUE: 10 ml Gadavist (gadobutrol) contrast infused MRA (single exam dose) of the extracranial circulation was performed using a neurovascular coil. Postprocessing was performed, including rotati ng sub-volume maximum intensity projections of each carotid artery, rotating full-volume maximum inte nsity projections of both carotid arteries, sagittal and coronal sliding thin-slab reformations of ea ch carotid artery, and left oblique sliding thin-slab reformation through the aortic arch to include the origin of the arch branch vessels. FINDINGS: Aortic Arch : There is a three-vessel origin of the great vessels from the aorta. No evidence of o stial narrowing. Right Carotid : The common carotid artery is intact. The carotid bulb has a normal configuration wi thout ulceration or narrowing. The internal carotid artery lumen is smooth without stenosis. The ex ternal carotid artery is patent with a focal short segment moderate stenosis.. Left Carotid : The common carotid artery is intact. . There is complete occlusion just past the orig in of the left internal carotid artery. The external carotid artery is patent with some focal short s egment mild to moderate stenosis at the origin. Vertebrals : The vertebral arteries have a symmetric diameter. No stenotic lesions are seen. CONCLUSION: 1. There is complete occlusion of the left internal carotid artery just past its origin. 2. No focal high-grade or significant stenosis is seen involving the right internal carotid artery. Percent stenosis is calculated using the diameter of the stenotic region over the diameter of the nor mal distal internal carotid artery Electronically signed by: Kalpesh Patricia MD Board Certified Radiologist 07/06/2018 11:28 AM EST
[2018-07-06] MEDS ORDERED: Bupivacaine PF 0.25% Inj 30 ML Vial ONE (12:24)
--- NOTE | 2018-07-06 12:41 | P.PNNS ---
Subjective Interval history: doing ok, no new neurological changes overnight <Josephine Henry - Last Filed: 07/06/18 12:38> Physical Exam Vital signs: Vital Signs 07/05/18 14:00 07/05/18 14:07 07/05/18 14:10 Temperature Pulse Rate 74 74 Respiratory Rate 15 18 Blood Pressure 151/74 H Pulse Oximetry 98 95 98 07/05/18 15:00 07/05/18 15:37 07/05/18 16:00 Temperature 98.4 F Pulse Rate 66 66 65 Respiratory Rate 17 19 18 Blood Pressure 147/74 H 156/84 H Pulse Oximetry 97 96 97 07/05/18 17:00 07/05/18 17:31 07/05/18 18:00 Temperature Pulse Rate 63 78 67 Respiratory Rate 17 17 Blood Pressure 150/75 H 158/77 H Pulse Oximetry 96 98 07/05/18 19:00 07/05/18 19:26 07/05/18 20:00 Temperature 98.2 F Pulse Rate 68 64 Respiratory Rate 18 18 Blood Pressure 167/77 H 178/80 H Pulse Oximetry 96 97 97 07/05/18 21:00 07/05/18 22:00 07/05/18 22:17 Temperature Pulse Rate 68 61 69 Respiratory Rate 18 17 19 Blood Pressure 167/81 H 188/84 H 170/81 H Pulse Oximetry 97 97 97 07/05/18 22:32 07/05/18 22:47 07/05/18 23:00 Temperature Pulse Rate 73 74 69 Respiratory Rate 19 23 26 H Blood Pressure 151/73 H 154/77 H Pulse Oximetry 95 96 96 07/05/18 23:02 07/05/18 23:17 07/05/18 23:32 Temperature Pulse Rate 69 76 77 Respiratory Rate 26 H 19 19 Blood Pressure 155/74 H 161/79 H 157/80 H Pulse Oximetry 96 96 96 07/05/18 23:47 07/06/18 00:00 07/06/18 00:02 Temperature Pulse Rate 78 83 74 Respiratory Rate 19 18 20 Blood Pressure 152/79 H 155/77 H Pulse Oximetry 94 L 97 97 07/06/18 00:17 07/06/18 00:32 07/06/18 00:47 Temperature Pulse Rate 78 78 81 Respiratory Rate 19 20 19 Blood Pressure 156/77 H 157/77 H 157/78 H Pulse Oximetry 96 94 L 94 L 07/06/18 01:00 07/06/18 01:02 07/06/18 01:17 Temperature Pulse Rate 79 80 77 Respiratory Rate 19 18 19 Blood Pressure 163/78 H 152/74 H Pulse Oximetry 95 95 95 07/06/18 01:32 07/06/18 01:47 07/06/18 02:00 Temperature Pulse Rate 80 85 77 Respiratory Rate 18 19 18 Blood Pressure 151/77 H 150/76 H Pulse Oximetry 95 96 94 L 07/06/18 02:02 07/06/18 02:17 07/06/18 02:32 Temperature Pulse Rate 76 79 84 Respiratory Rate 19 18 21 Blood Pressure 149/78 H 139/82 145/81 H Pulse Oximetry 94 L 94 L 96 07/06/18 02:47 07/06/18 03:00 07/06/18 03:02 Temperature Pulse Rate 84 80 76 Respiratory Rate 16 18 19 Blood Pressure 150/77 H 145/73 H Pulse Oximetry 96 97 95 07/06/18 03:17 07/06/18 03:32 07/06/18 03:47 Temperature Pulse Rate 71 71 77 Respiratory Rate 19 18 18 Blood Pressure 154/78 H 150/76 H 155/78 H Pulse Oximetry 95 95 96 07/06/18 04:00 07/06/18 04:02 07/06/18 04:17 Temperature 98.6 F Pulse Rate 68 69 71 Respiratory Rate 18 19 5 L Blood Pressure 160/78 H 158/72 H Pulse Oximetry 96 96 95 07/06/18 04:32 07/06/18 04:47 07/06/18 05:00 Temperature Pulse Rate 77 74 72 Respiratory Rate 19 17 18 Blood Pressure 150/77 H 151/77 H Pulse Oximetry 95 95 95 07/06/18 05:02 07/06/18 05:17 07/06/18 05:32 Temperature Pulse Rate 70 72 73 Respiratory Rate 17 18 17 Blood Pressure 158/78 H 144/80 H 168/81 H Pulse Oximetry 95 96 96 07/06/18 05:47 07/06/18 06:00 07/06/18 06:02 Temperature Pulse Rate 76 74 77 Respiratory Rate 16 22 23 Blood Pressure 158/72 H 160/79 H Pulse Oximetry 96 96 96 07/06/18 06:17 07/06/18 06:32 07/06/18 06:47 Temperature Pulse Rate 79 69 75 Respiratory Rate 20 18 19 Blood Pressure 152/73 H 150/79 H 158/77 H Pulse Oximetry 96 95 97 07/06/18 07:00 07/06/18 07:02 07/06/18 07:17 Temperature Pulse Rate 72 72 75 Respiratory Rate 17 19 19 Blood Pressure 159/73 H 137/75 Pulse Oximetry 97 97 98 07/06/18 07:32 07/06/18 07:47 07/06/18 08:00 Temperature Pulse Rate 82 76 79 Respiratory Rate 14 21 24 Blood Pressure 153/74 H 142/69 H Pulse Oximetry 97 97 98 07/06/18 08:02 07/06/18 08:17 07/06/18 09:00 Temperature 98.7 F Pulse Rate 75 81 70 Respiratory Rate 29 H 21 21 Blood Pressure 147/77 H 140/76 Pulse Oximetry 97 96 96 07/06/18 09:03 07/06/18 09:10 07/06/18 09:25 Temperature Pulse Rate 78 77 75 Respiratory Rate 23 21 27 H Blood Pressure 114/56 L 150/76 H 151/81 H Pulse Oximetry 96 97 96 07/06/18 10:00 07/06/18 10:25 07/06/18 11:00 Temperature Pulse Rate 73 65 Respiratory Rate 17 Blood Pressure 142/81 H Pulse Oximetry 98 96 97 07/06/18 12:00 Temperature Pulse Rate 65 Respiratory Rate Blood Pressure Pulse Oximetry 97 Intake & Output 07/05/18 07/06/18 07/06/18 18:59 06:59 18:59 Intake Total 2256 / 2256 105 / 105 Output Total 2800 / 2800 1625 / 1625 Balance -544 / -544 -1520 / -1520 Weight 85.9 kg Intake: IV 1456 / 1456 105 / 105 NS Inj 1,000 ML @ 70 mls/hr IV. 1000 / 1000 CONT .[id number] [facility] Rx#: [id number] Cardene Inj 25 MG In NS Inj 240 250 / 250 ML @ 5 MG/HR 50 mls/hr IV.CONT TITRATE PRN Rx#:[id number] Thiamine Inj 100 MG In NS Inj 101 / 101 100 ML @ 100 mls/hr IV.SIG DAILY [facility] Rx#:[id number] Keppra Inj 500 MG In NS Inj 100 105 / 105 105 / 105 ML @ 400 mls/hr IV.SIG Q12H [facility] Rx#:[id number] Oral 800 / 800 Output: Urine 2800 / 2800 1625 / 1625 Other: Date of Last Bowel Movement 07/04/18 07/04/18 Narrative: Awake and alert. He is oriented x3. He is in no acute distress. He follows commands without difficulties. Cranial nerve testing 2-12 was grossly intact with some minimal facial weakness on the right Motor examination was remarkable for a right hemiparesis with increased tone. Sensory examination was remarkable for diminished light touch on the right. Position sense appeared to be intact. <Josephine Henry - Last Filed: 07/06/18 12:38> Vital signs: Vital Signs 07/05/18 14:00 07/05/18 14:07 07/05/18 14:10 Temperature Pulse Rate 74 74 Respiratory Rate 15 18 Blood Pressure 151/74 H Pulse Oximetry 98 95 98 07/05/18 15:00 07/05/18 15:37 07/05/18 16:00 Temperature 98.4 F Pulse Rate 66 66 65 Respiratory Rate 17 19 18 Blood Pressure 147/74 H 156/84 H Pulse Oximetry 97 96 97 07/05/18 17:00 07/05/18 17:31 07/05/18 18:00 Temperature Pulse Rate 63 78 67 Respiratory Rate 17 17 Blood Pressure 150/75 H 158/77 H Pulse Oximetry 96 98 07/05/18 19:00 07/05/18 19:26 07/05/18 20:00 Temperature 98.2 F Pulse Rate 68 64 Respiratory Rate 18 18 Blood Pressure 167/77 H 178/80 H Pulse Oximetry 96 97 97 07/05/18 21:00 07/05/18 22:00 07/05/18 22:17 Temperature Pulse Rate 68 61 69 Respiratory Rate 18 17 19 Blood Pressure 167/81 H 188/84 H 170/81 H Pulse Oximetry 97 97 97 07/05/18 22:32 07/05/18 22:47 07/05/18 23:00 Temperature Pulse Rate 73 74 69 Respiratory Rate 19 23 26 H Blood Pressure 151/73 H 154/77 H Pulse Oximetry 95 96 96 07/05/18 23:02 07/05/18 23:17 07/05/18 23:32 Temperature Pulse Rate 69 76 77 Respiratory Rate 26 H 19 19 Blood Pressure 155/74 H 161/79 H 157/80 H Pulse Oximetry 96 96 96 07/05/18 23:47 07/06/18 00:00 07/06/18 00:02 Temperature Pulse Rate 78 83 74 Respiratory Rate 19 18 20 Blood Pressure 152/79 H 155/77 H Pulse Oximetry 94 L 97 97 07/06/18 00:17 07/06/18 00:32 07/06/18 00:47 Temperature Pulse Rate 78 78 81 Respiratory Rate 19 20 19 Blood Pressure 156/77 H 157/77 H 157/78 H Pulse Oximetry 96 94 L 94 L 07/06/18 01:00 07/06/18 01:02 07/06/18 01:17 Temperature Pulse Rate 79 80 77 Respiratory Rate 19 18 19 Blood Pressure 163/78 H 152/74 H Pulse Oximetry 95 95 95 07/06/18 01:32 07/06/18 01:47 07/06/18 02:00 Temperature Pulse Rate 80 85 77 Respiratory Rate 18 19 18 Blood Pressure 151/77 H 150/76 H Pulse Oximetry 95 96 94 L 07/06/18 02:02 07/06/18 02:17 07/06/18 02:32 Temperature Pulse Rate 76 79 84 Respiratory Rate 19 18 21 Blood Pressure 149/78 H 139/82 145/81 H Pulse Oximetry 94 L 94 L 96 07/06/18 02:47 07/06/18 03:00 07/06/18 03:02 Temperature Pulse Rate 84 80 76 Respiratory Rate 16 18 19 Blood Pressure 150/77 H 145/73 H Pulse Oximetry 96 97 95 07/06/18 03:17 07/06/18 03:32 07/06/18 03:47 Temperature Pulse Rate 71 71 77 Respiratory Rate 19 18 18 Blood Pressure 154/78 H 150/76 H 155/78 H Pulse Oximetry 95 95 96 07/06/18 04:00 07/06/18 04:02 07/06/18 04:17 Temperature 98.6 F Pulse Rate 68 69 71 Respiratory Rate 18 19 5 L Blood Pressure 160/78 H 158/72 H Pulse Oximetry 96 96 95 07/06/18 04:32 07/06/18 04:47 07/06/18 05:00 Temperature Pulse Rate 77 74 72 Respiratory Rate 19 17 18 Blood Pressure 150/77 H 151/77 H Pulse Oximetry 95 95 95 07/06/18 05:02 07/06/18 05:17 07/06/18 05:32 Temperature Pulse Rate 70 72 73 Respiratory Rate 17 18 17 Blood Pressure 158/78 H 144/80 H 168/81 H Pulse Oximetry 95 96 96 07/06/18 05:47 07/06/18 06:00 07/06/18 06:02 Temperature Pulse Rate 76 74 77 Respiratory Rate 16 22 23 Blood Pressure 158/72 H 160/79 H Pulse Oximetry 96 96 96 07/06/18 06:17 07/06/18 06:32 07/06/18 06:47 Temperature Pulse Rate 79 69 75 Respiratory Rate 20 18 19 Blood Pressure 152/73 H 150/79 H 158/77 H Pulse Oximetry 96 95 97 07/06/18 07:00 07/06/18 07:02 07/06/18 07:17 Temperature Pulse Rate 72 72 75 Respiratory Rate 17 19 19 Blood Pressure 159/73 H 137/75 Pulse Oximetry 97 97 98 07/06/18 07:32 07/06/18 07:47 07/06/18 08:00 Temperature Pulse Rate 82 76 79 Respiratory Rate 14 21 24 Blood Pressure 153/74 H 142/69 H Pulse Oximetry 97 97 98 07/06/18 08:02 07/06/18 08:17 07/06/18 09:00 Temperature 98.7 F Pulse Rate 75 81 70 Respiratory Rate 29 H 21 21 Blood Pressure 147/77 H 140/76 Pulse Oximetry 97 96 96 07/06/18 09:03 07/06/18 09:10 07/06/18 09:25 Temperature Pulse Rate 78 77 75 Respiratory Rate 23 21 27 H Blood Pressure 114/56 L 150/76 H 151/81 H Pulse Oximetry 96 97 96 07/06/18 10:00 07/06/18 10:25 07/06/18 11:00 Temperature Pulse Rate 64 73 65 Respiratory Rate 17 Blood Pressure 142/81 H Pulse Oximetry 98 96 97 07/06/18 12:00 Temperature Pulse Rate 65 Respiratory Rate Blood Pressure Pulse Oximetry 97 Intake & Output 07/05/18 07/06/18 07/06/18 18:59 06:59 18:59 Intake Total 2256 / 2256 105 / 105 Output Total 2800 / 2800 1625 / 1625 Balance -544 / -544 -1520 / -1520 Weight 85.9 kg Intake: IV 1456 / 1456 105 / 105 NS Inj 1,000 ML @ 70 mls/hr IV. 1000 / 1000 CONT .[id number] [facility] Rx#: [id number] Cardene Inj 25 MG In NS Inj 240 250 / 250 ML @ 5 MG/HR 50 mls/hr IV.CONT TITRATE PRN Rx#:[id number] Thiamine Inj 100 MG In NS Inj 101 / 101 100 ML @ 100 mls/hr IV.SIG DAILY [facility] Rx#:[id number] Keppra Inj 500 MG In NS Inj 100 105 / 105 105 / 105 ML @ 400 mls/hr IV.SIG Q12H [facility] Rx#:[id number] Oral 800 / 800 Output: Urine 2800 / 2800 1625 / 1625 Other: Date of Last Bowel Movement 07/04/18 07/04/18 07/04/18 <Yann Trevino - Last Filed: 07/06/18 13:30> Assessment and Plan - Plan 63 year old male suffered spontaneous hypertensive intracerebral hemorrhage. RECOMMENDATIONS: Certainly at this point a conservative neurosurgical approach is warranted. His blood pressure needs to be controlled to maintain his systolic between 140 and 160 and he certainly will require an aggressive course of stroke rehabilitation. Neurosurgery will follow. 07/06/2018 patient remains neurologically stable, stable right side weakness with slight increase improvement, recommend continue therapy and stroke rehab continue medical management and hypertensive control neurosurgery signing off, please call prn <Josephine Henry - Last Filed: 07/06/18 12:38> - Attending Attestation July 06, 2018 I personally interviewed and examined the patient. I reviewed the documentation , laboratory evaluation, and the imaging. I discussed the case with the neurosurgery team we formulated a plan which is as described above. Patient remains clinically and neurologically stable. At this point a conservative neurosurgical approach is warranted with stroke rehabilitation. Neurosurgery will sign off. Please reconsult as needed. <Yann Trevino - Last Filed: 07/06/18 13:30>
[2018-07-06] MEDS ORDERED: Phenylephrine/NS 1000 MCG/10ML Syringe IV.PUSH ONE (14:04)
[2018-07-06] MEDS ORDERED: Lidocaine PF 1% Inj 5 ML Syringe OTHER ONE (14:04)
[2018-07-06] MEDS ORDERED: ceFAZolin 2 GM Premix Inj 2 GM/50 ML PIGGYBACK IV.SIG ONE (14:42)
--- NOTE | 2018-07-06 15:00 | P.BOP ---
- Preoperative Diagnosis (1) Chronic ulcer of left foot with fat layer exposed - Postoperative Diagnosis (1) Chronic ulcer of left foot with fat layer exposed Date of procedure: 07/06/18 Procedure: 1. debridement of ulcer left plantar foot Ulcer excisionally debrided of all fibrotic tissue down to healthy bleeding subcutaneous tissue with #15 blade and rongeur/curette. Culture swab taken. Ulcer excised and tissue raised and skin transposed, irrigation with normal saline, and primary closure with 2-0 nylon. No wound present currently. Dressing with xeroform, 4x4, cast padding, vega left foot. No tourniquet utilized. Ancef 2g IV preop 10mL 0.25% marcaine plain DISPOSITION: Strict nonweightbearing left foot. Follow up in clinic 1 week for dressing change Keep clean, dry, intact in interim. No further treatment anticipated. Implants: n/a Anesthesia: MAC, local (10mL 0.25% marcaine plain) Surgeon: Angel Mancia DPM [employer] Sales Associate: staff Estimated blood loss (mL): 5 Pathology: other (culture left foot) Condition: stable Disposition: PACU
--- NOTE | 2018-07-06 15:45 | P.PNVS ---
Subjective Subjective/Hospital Course: This pleasant 63-year-old gentleman was admitted through the [facility]. He started complaining about severe headaches yesterday and then states he suffered something like loss of consciousness. He states that he did not lose consciousness, yet he felt he was not "quite there." The patient also noticed weakness in his right arm and leg and some numbness. The patient was transferred to the emergency room. He was found to have a left hemorrhagic acute stroke and severe hypertension. In the process of the workup, he was found to have a left foot proximal metatarsal ulcer and a question arose about vascular supply. I reviewed laboratory and diagnostic procedures. The gentleman has excellent distal pulses in both legs that are palpable proximally and distally and capillary refill is normal. In the face of this, the patient does not require any further vascular workup. As far as the stroke is concerned, the patient has had a previous stroke and I am not sure how this was handled and what was done. The patient lives in [place], so their system may be different in how they go about it. Carotid ultrasound reveals previously known left internal carotid artery occlusion and about 50-70% stenosis of the right internal carotid artery about an inch distal to the bulb MRA of the carotids reveals only about 50% right internal carotid artery stenosis and therefore no surgery is indicated at this time Patient should follow-up in my office in about 6 months at which point we going to do another ultrasound and then annually Considering the patient is from [place], he will need to be followed by physician there and then when he comes back down here I will see him in the follow-up as well Objective Vital Signs / I&O: Vital Signs 07/05/18 16:00 07/05/18 17:00 07/05/18 17:31 Temperature 98.4 F Pulse Rate 65 63 78 Respiratory Rate 18 17 Blood Pressure 156/84 H 150/75 H Pulse Oximetry 97 96 07/05/18 18:00 07/05/18 19:00 07/05/18 19:26 Temperature Pulse Rate 67 68 Respiratory Rate 17 18 Blood Pressure 158/77 H 167/77 H Pulse Oximetry 98 96 97 07/05/18 20:00 07/05/18 21:00 07/05/18 22:00 Temperature 98.2 F Pulse Rate 64 68 61 Respiratory Rate 18 18 17 Blood Pressure 178/80 H 167/81 H 188/84 H Pulse Oximetry 97 97 97 07/05/18 22:17 07/05/18 22:32 07/05/18 22:47 Temperature Pulse Rate 69 73 74 Respiratory Rate 19 19 23 Blood Pressure 170/81 H 151/73 H 154/77 H Pulse Oximetry 97 95 96 07/05/18 23:00 07/05/18 23:02 07/05/18 23:17 Temperature Pulse Rate 69 69 76 Respiratory Rate 26 H 26 H 19 Blood Pressure 155/74 H 161/79 H Pulse Oximetry 96 96 96 07/05/18 23:32 07/05/18 23:47 07/06/18 00:00 Temperature Pulse Rate 77 78 83 Respiratory Rate 19 19 18 Blood Pressure 157/80 H 152/79 H Pulse Oximetry 96 94 L 97 07/06/18 00:02 07/06/18 00:17 07/06/18 00:32 Temperature Pulse Rate 74 78 78 Respiratory Rate 20 19 20 Blood Pressure 155/77 H 156/77 H 157/77 H Pulse Oximetry 97 96 94 L 07/06/18 00:47 07/06/18 01:00 07/06/18 01:02 Temperature Pulse Rate 81 79 80 Respiratory Rate 19 19 18 Blood Pressure 157/78 H 163/78 H Pulse Oximetry 94 L 95 95 07/06/18 01:17 07/06/18 01:32 07/06/18 01:47 Temperature Pulse Rate 77 80 85 Respiratory Rate 19 18 19 Blood Pressure 152/74 H 151/77 H 150/76 H Pulse Oximetry 95 95 96 07/06/18 02:00 07/06/18 02:02 07/06/18 02:17 Temperature Pulse Rate 77 76 79 Respiratory Rate 18 19 18 Blood Pressure 149/78 H 139/82 Pulse Oximetry 94 L 94 L 94 L 07/06/18 02:32 07/06/18 02:47 07/06/18 03:00 Temperature Pulse Rate 84 84 80 Respiratory Rate 21 16 18 Blood Pressure 145/81 H 150/77 H Pulse Oximetry 96 96 97 07/06/18 03:02 07/06/18 03:17 07/06/18 03:32 Temperature Pulse Rate 76 71 71 Respiratory Rate 19 19 18 Blood Pressure 145/73 H 154/78 H 150/76 H Pulse Oximetry 95 95 95 07/06/18 03:47 07/06/18 04:00 07/06/18 04:02 Temperature 98.6 F Pulse Rate 77 68 69 Respiratory Rate 18 18 19 Blood Pressure 155/78 H 160/78 H Pulse Oximetry 96 96 96 07/06/18 04:17 07/06/18 04:32 07/06/18 04:47 Temperature Pulse Rate 71 77 74 Respiratory Rate 5 L 19 17 Blood Pressure 158/72 H 150/77 H 151/77 H Pulse Oximetry 95 95 95 07/06/18 05:00 07/06/18 05:02 07/06/18 05:17 Temperature Pulse Rate 72 70 72 Respiratory Rate 18 17 18 Blood Pressure 158/78 H 144/80 H Pulse Oximetry 95 95 96 07/06/18 05:32 07/06/18 05:47 07/06/18 06:00 Temperature Pulse Rate 73 76 74 Respiratory Rate 17 16 22 Blood Pressure 168/81 H 158/72 H Pulse Oximetry 96 96 96 07/06/18 06:02 07/06/18 06:17 07/06/18 06:32 Temperature Pulse Rate 77 79 69 Respiratory Rate 23 20 18 Blood Pressure 160/79 H 152/73 H 150/79 H Pulse Oximetry 96 96 95 07/06/18 06:47 07/06/18 07:00 07/06/18 07:02 Temperature Pulse Rate 75 72 72 Respiratory Rate 19 17 19 Blood Pressure 158/77 H 159/73 H Pulse Oximetry 97 97 97 07/06/18 07:17 07/06/18 07:32 07/06/18 07:47 Temperature Pulse Rate 75 82 76 Respiratory Rate 19 14 21 Blood Pressure 137/75 153/74 H 142/69 H Pulse Oximetry 98 97 97 07/06/18 08:00 07/06/18 08:02 07/06/18 08:17 Temperature 98.7 F Pulse Rate 79 75 81 Respiratory Rate 24 29 H 21 Blood Pressure 147/77 H 140/76 Pulse Oximetry 98 97 96 07/06/18 09:00 07/06/18 09:03 07/06/18 09:10 Temperature Pulse Rate 70 78 77 Respiratory Rate 21 23 21 Blood Pressure 114/56 L 150/76 H Pulse Oximetry 96 96 97 07/06/18 09:25 07/06/18 10:00 07/06/18 10:25 Temperature Pulse Rate 75 64 73 Respiratory Rate 27 H 17 Blood Pressure 151/81 H 142/81 H Pulse Oximetry 96 98 96 07/06/18 11:00 07/06/18 12:00 07/06/18 13:08 Temperature 97.8 F Pulse Rate 65 65 63 Respiratory Rate 16 Blood Pressure 143/75 H Pulse Oximetry 97 97 96 Intake & Output 07/05/18 07/06/18 07/06/18 18:59 06:59 18:59 Intake Total 2256 / 2256 105 / 105 650 / 650 Output Total 2800 / 2800 1625 / 1625 5 / 5 Balance -544 / -544 -1520 / -1520 645 / 645 Weight 85.9 kg Intake: IV 1456 / 1456 105 / 105 50 / 50 NS Inj 1,000 ML @ 70 mls/hr IV. 1000 / 1000 CONT .[id number] JAE Rx#: [id number] Cardene Inj 25 MG In NS Inj 240 250 / 250 ML @ 5 MG/HR 50 mls/hr IV.CONT TITRATE PRN Rx#:[id number] Thiamine Inj 100 MG In NS Inj 101 / 101 100 ML @ 100 mls/hr IV.SIG DAILY JAE Rx#:[id number] Ancef 2 GM Premix Inj 2 gm In 50 / 50 50 ml @ 100 mls/hr IV.SIG ONCE ONE Rx#:[id number] Keppra Inj 500 MG In NS Inj 100 105 / 105 105 / 105 ML @ 400 mls/hr IV.SIG Q12H JAE Rx#:[id number] Oral 800 / 800 Anesthesia Amount 600 / 600 Output: Urine 2800 / 2800 1625 / 1625 Estimated Blood Loss 5 / 5 Other: Date of Last Bowel Movement 07/04/18 07/04/18 07/04/18 Laboratory Results - last 24 hr 07/05/18 07/05/18 07/05/18 12:54 15:33 17:27 WBC RBC Hgb Hct MCV MCH MCHC RDW Plt Count MPV Neut % (Auto) Lymph % (Auto) [place] % (Auto) Eos % (Auto) Baso % (Auto) Neut # (Auto) Lymph # (Auto) [place] # (Auto) Eos # (Auto) Baso # (Auto) WBC Differential Differential Comment ESR 25 H PT INR Sodium Potassium Chloride Carbon Dioxide Anion Gap BUN Creatinine Estimated GFR POC Glucose 117 H Random Glucose Calcium Phosphorus Magnesium Total Bilirubin AST ALT Alkaline Phosphatase Total Protein Albumin Rout Panel Path Inter 07/05/18 07/06/18 07/06/18 23:38 02:46 02:46 WBC 5.2 RBC 3.81 L Hgb 13.0 Hct 37.3 L MCV 97.8 MCH 34.2 H MCHC 34.9 RDW 12.9 Plt Count 103 L MPV 8.9 Neut % (Auto) 75.0 H Lymph % (Auto) 13.1 [place] % (Auto) 10.6 H Eos % (Auto) 0.6 Baso % (Auto) 0.7 Neut # (Auto) 3.9 Lymph # (Auto) 0.7 L [place] # (Auto) 0.5 Eos # (Auto) 0.0 Baso # (Auto) 0.0 WBC Differential . Differential Comment Auto diff final ESR PT INR Sodium 141 Potassium 3.2 L Chloride 107 Carbon Dioxide 24.6 Anion Gap 9 BUN 8 Creatinine 0.87 Estimated GFR 88 L POC Glucose 117 H Random Glucose 101 Calcium 8.6 Phosphorus 2.1 L Magnesium 1.7 Total Bilirubin 1.2 H AST 74 H ALT 57 Alkaline Phosphatase 120 H Total Protein 7.4 Albumin 3.2 L Rout Panel Path Inter 07/06/18 07/06/18 07/06/18 05:22 07:34 07:34 WBC 5.5 RBC 3.78 L Hgb 12.6 L Hct 36.9 L MCV 97.6 MCH 33.3 MCHC 34.1 RDW 12.9 Plt Count 110 L MPV 9.0 Neut % (Auto) 71.6 H Lymph % (Auto) 16.1 [place] % (Auto) 11.1 H Eos % (Auto) 0.8 Baso % (Auto) 0.4 Neut # (Auto) 3.9 Lymph # (Auto) 0.9 L [place] # (Auto) 0.6 Eos # (Auto) 0.0 Baso # (Auto) 0.0 WBC Differential . Differential Comment Auto diff final ESR PT 10.4 INR 1.0 Sodium Potassium Chloride Carbon Dioxide Anion Gap BUN Creatinine Estimated GFR POC Glucose 122 H Random Glucose Calcium Phosphorus Magnesium Total Bilirubin AST ALT Alkaline Phosphatase Total Protein Albumin Rout Panel Path Inter 07/06/18 07/06/18 07:34 12:38 WBC RBC Hgb Hct MCV MCH MCHC RDW Plt Count MPV Neut % (Auto) Lymph % (Auto) [place] % (Auto) Eos % (Auto) Baso % (Auto) Neut # (Auto) Lymph # (Auto) [place] # (Auto) Eos # (Auto) Baso # (Auto) WBC Differential Differential Comment ESR PT INR Sodium 141 Potassium 3.4 L Chloride 108 H Carbon Dioxide 24.7 Anion Gap 8 BUN 9 Creatinine 0.96 Estimated GFR 79 L POC Glucose 114 H Random Glucose 95 Calcium 8.3 L Phosphorus Magnesium 1.7 Total Bilirubin 1.3 H AST 64 H ALT 50 Alkaline Phosphatase 115 Total Protein 7.1 Albumin 3.1 L Rout Panel Path Interp Impressions Carotid Doppler Study 07/05/18 00:00 CONCLUSION: 1. Right Internal Carotid Artery: Findings indicate 50-69% stenosis. 2. Left Internal Carotid Artery: Not visualized and may be thrombosed. CTA examination may be obtained for further evaluation as clinically appropriate. Foot MRI 07/05/18 00:00 CONCLUSION: 1. Findings as above with inflammatory changes evident from skin to undersurface of the first MTP joint involving flexor tendon of the first phalanx. There are some mild marrow signal alterations that could be only degenerative. Findings are minimal. 2. There is no evidence of deep space abscess Foot X-Ray 07/05/18 00:00 CONCLUSION: 1. Soft tissue prominence with ulceration in the medial plantar proximal toe with heterotopic ossification at the head of the first metatarsal and subtle erosive change along the medial proximal first metatarsal. Differential considerations include chronic or prior osteomyelitis. Patient has an MRI examination pending. Head MRI 07/05/18 00:00 CONCLUSION: 1. MRI is consistent with acute focal left thalamic hemorrhage without enhancement to suggest underlying mass. 2. Follow-up MRI would be of benefit proximal to 6 weeks to ensure this involving as a small lacunar type hemorrhage.. 3. This does involve the posterior limb of the internal capsule. Head CT 07/05/18 01:33 CONCLUSION: 1. Acute left thalamic hemorrhage without significant mass effect. Report was called by Dr. Mckeon to Dr. He.. Neck MRA 07/06/18 00:00 CONCLUSION: 1. There is complete occlusion of the left internal carotid artery just past its origin. 2. No focal high-grade or significant stenosis is seen involving the right internal carotid artery. Percent stenosis is calculated using the diameter of the stenotic region over the diameter of the normal distal internal carotid artery
[2018-07-06 15:59] LABS: Phosphorus 3.4 mg/dL (2.5-4.9); Potassium 3.7 meq/L (3.5-5.1)
--- NOTE | 2018-07-06 20:41 | P.PNNEU ---
Subjective Subjective Comments: pt feels right sided strength is improving Active Medications: Active Medications Acetaminophen (Tylenol) 650 mg PO Q6H PRN PRN Reason: PAIN 1-10 AND/OR FEVER >101F Last Admin: 07/06/18 18:02 Dose: 650 mg Al Hydroxide/Mg Hydroxide (Milk Of Almaz Daigle) 30 ml PO Q12H PRN PRN Reason: Mild Constipation Albuterol (Duoneb Neb (Prn)) 1 ampul NEB Q2HR NEB PRN PRN Reason: WHEEZING Alprazolam (Xanax) 0.5 mg PO Q6HR PRN PRN Reason: ANXIETY Atorvastatin Calcium (Lipitor) 80 mg PO DAILY [facility] Last Admin: 07/06/18 09:33 Dose: 80 mg Bisacodyl (Dulcolax Supp) 10 mg RECTAL DAILY PRN PRN Reason: SEVERE CONSITIPATION Chlorhexidine Gluconate (Chlorhexidine 2% Cloth) 3 pack TOPICAL DAILY@0400 [facility] Stop: 07/10/18 03:59 Last Admin: 07/06/18 03:43 Dose: 3 pack Chlorhexidine Gluconate (Chlorhexidine 2% Cloth) 3 pack TOPICAL DAILY@0400 PRN PRN Reason: Extra cloth needed Stop: 07/10/18 03:59 Citalopram Hydrobromide (Celexa) 10 mg PO DAILY [facility] Last Admin: 07/06/18 09:32 Dose: 10 mg Dextrose (D50w Vial) 50 ml IV.PUSH UNSCH PRN PRN Reason: PER HYPOGLYCEMIA PROTOCOL Enalaprilat (Vasotec Inj) 1.25 mg IV.PUSH Q6H PRN PRN Reason: Sbp>140, Dbp>90 Escitalopram Oxalate (Lexapro) 20 mg PO DAILY [facility] Last Admin: 07/06/18 09:32 Dose: 20 mg Famotidine (Pepcid) 20 mg PO BID [facility] Last Admin: 07/06/18 20:24 Dose: 20 mg Famotidine (Pepcid Pf Inj) 20 mg IV.PUSH Q12HR [facility] Last Admin: 07/06/18 20:27 Dose: Not Given Folic Acid (Folic Acid) 1 mg PO DAILY [facility] Glucagon (Glucagon Inj) 1 mg OTHER PRN PRN PRN Reason: for Hypoglycemia Protocol Hydralazine HCl (Apresoline Inj) 20 mg IV.PUSH Q4H PRN PRN Reason: Sbp>140, Dbp>90 Last Admin: 07/06/18 16:40 Dose: 20 mg Nicardipine HCl 25 mg/ Sodium (Chloride) 250 mls @ 50 mls/hr IV.CONT TITRATE PRN; Protocol PRN Reason: Per Protocol Last Titration: 07/06/18 02:57 Dose: 0 mg/hr, 0 mls/hr Magnesium Sulfate 4 gm/ Sodium (Chloride) 100 mls @ 50 mls/hr IV.SIG UNSCH PRN PRN Reason: For Magnesium 0.9 - 1.1 mg/dL Magnesium Sulfate 2 gm/ Sodium (Chloride) 100 mls @ 50 mls/hr IV.SIG UNSCH PRN PRN Reason: For Magnesium 1.2 - 1.6 mg/dL Potassium Chloride (Kcl 40 Meq Premix Inj) 40 meq in 100 mls @ 25 mls/hr IV.SIG Q2H PRN PRN Reason: For Potassium 2.8 - 3.2 mEq/L Potassium Chloride (Kcl 20 Meq Premix Inj) 20 meq in 100 mls @ 50 mls/hr IV.SIG Q2H PRN PRN Reason: For Potassium 3.3 - 3.5 mEq/L Potassium Chloride (Kcl 40 Meq Premix Inj) 40 meq in 100 mls @ 25 mls/hr IV.SIG UNSCH PRN PRN Reason: For Potassium 3.3 - 3.5 mEq/L Potassium Chloride (Kcl 20 Meq Premix Inj) 20 meq in 100 mls @ 50 mls/hr IV.SIG Q2H PRN PRN Reason: For Potassium 2.8 - 3.2 mEq/L Potassium Phosphate 30 mmol/ (Sodium Chloride) 260 mls @ 42 mls/hr IV.SIG UNSCH PRN PRN Reason: SEE LABEL COMMENTS Last Infusion: 07/06/18 12:40 Dose: Infused Sodium Phosphate 30 mmol/ (Sodium Chloride) 260 mls @ 42 mls/hr IV.SIG UNSCH PRN PRN Reason: For Phosphorus < 2.5 mg/dL Insulin Human Regular (Novolin R Correctional Sugar Inj) 0 units SQ Q6HR JAE; Protocol Last Admin: 07/06/18 18:01 Dose: 1 units Labetalol HCl (Trandate Inj) 10 mg IV.SIG Q4H PRN PRN Reason: SBP>140, DBP>90 Lactulose (Lactulose Liq) 30 ml PO DAILY PRN PRN Reason: SEVERE CONSITIPATION Levetiracetam (Keppra) 500 mg PO BID [facility] Last Admin: 07/06/18 20:24 Dose: 500 mg Lisinopril (Prinivil) 10 mg PO DAILY [facility] Last Admin: 07/06/18 09:34 Dose: 10 mg Magnesium Oxide (Mag-Ox) 800 mg PO UNSCH PRN PRN Reason: For Magnesium 1.2 - 1.6 mg/dL Metoprolol Tartrate (Lopressor) 12.5 mg PO BID [facility] Last Admin: 07/06/18 20:23 Dose: 12.5 mg Miscellaneous Information ([facility] [place] [facility] 0 each OTHER UNSCH PRN PRN Reason: SEE LABEL COMMENTS Stop: 07/07/18 14:59 Ondansetron HCl (Zofran Inj) 4 mg IV.PUSH Q6H PRN PRN Reason: NAUSEA OR VOMITING Potassium Chloride (Kcl Liq) 40 meq PO UNSCH PRN PRN Reason: Potassium level 3.3-3.5 mEq/L Potassium Chloride (Kcl Liq) 40 meq PO UNSCH PRN PRN Reason: POTASSIUM LESS THAN 3.5 Potassium Phosphate (K-Phos Original) 2,000 mg PO Q4H PRN PRN Reason: Phosphorus Less Than 2.5 mg/dL Potassium Phosphate (K-Phos Original) 2,000 mg PO UNSCH PRN PRN Reason: SEE LABEL COMMENTS Senna/Docusate Sodium (Alanna-Colace) 1 tab PO BID [facility] Last Admin: 07/06/18 20:28 Dose: Not Given Sennosides (Senokot) 17.2 mg PO Q12H PRN PRN Reason: Moderate Constipation Sodium Chloride (Ns Flush) 2 ml IV.FLUSH BID [facility] Last Admin: 07/06/18 20:28 Dose: 2 ml Sodium Chloride (Ns Flush) 2 ml IV.FLUSH PRN PRN PRN Reason: FLUSH AFTER USING IV ACCESS Thiamine HCl (Vitamin B1) 100 mg PO BID [facility] Last Admin: 07/06/18 20:24 Dose: 100 mg Allergies/Adverse Reactions: Allergies Allergy/AdvReac Type Severity Reaction Status Date / Time No Known Allergies Allergy Verified 07/05/18 01:33 Physical Exam Vital signs: Vital Signs 07/05/18 21:00 02/24/19 22:00 07/05/18 22:17 Temperature Pulse Rate 68 61 69 Respiratory Rate 18 17 19 Blood Pressure 167/81 H 188/84 H 170/81 H Pulse Oximetry 97 97 97 07/05/18 22:32 07/05/18 22:47 07/05/18 23:00 Temperature Pulse Rate 73 74 69 Respiratory Rate 19 23 26 H Blood Pressure 151/73 H 154/77 H Pulse Oximetry 95 96 96 07/05/18 23:02 07/05/18 23:17 07/05/18 23:32 Temperature Pulse Rate 69 76 77 Respiratory Rate 26 H 19 19 Blood Pressure 155/74 H 161/79 H 157/80 H Pulse Oximetry 96 96 96 07/05/18 23:47 07/06/18 00:00 07/06/18 00:02 Temperature Pulse Rate 78 83 74 Respiratory Rate 19 18 20 Blood Pressure 152/79 H 155/77 H Pulse Oximetry 94 L 97 97 07/06/18 00:17 07/06/18 00:32 07/06/18 00:47 Temperature Pulse Rate 78 78 81 Respiratory Rate 19 20 19 Blood Pressure 156/77 H 157/77 H 157/78 H Pulse Oximetry 96 94 L 94 L 07/06/18 01:00 07/06/18 01:02 07/06/18 01:17 Temperature Pulse Rate 79 80 77 Respiratory Rate 19 18 19 Blood Pressure 163/78 H 152/74 H Pulse Oximetry 95 95 95 07/06/18 01:32 07/06/18 01:47 07/06/18 02:00 Temperature Pulse Rate 80 85 77 Respiratory Rate 18 19 18 Blood Pressure 151/77 H 150/76 H Pulse Oximetry 95 96 94 L 07/06/18 02:02 07/06/18 02:17 07/06/18 02:32 Temperature Pulse Rate 76 79 84 Respiratory Rate 19 18 21 Blood Pressure 149/78 H 139/82 145/81 H Pulse Oximetry 94 L 94 L 96 07/06/18 02:47 07/06/18 03:00 07/06/18 03:02 Temperature Pulse Rate 84 80 76 Respiratory Rate 16 18 19 Blood Pressure 150/77 H 145/73 H Pulse Oximetry 96 97 95 07/06/18 03:17 07/06/18 03:32 07/06/18 03:47 Temperature Pulse Rate 71 71 77 Respiratory Rate 19 18 18 Blood Pressure 154/78 H 150/76 H 155/78 H Pulse Oximetry 95 95 96 07/06/18 04:00 07/06/18 04:02 07/06/18 04:17 Temperature 98.6 F Pulse Rate 68 69 71 Respiratory Rate 18 19 5 L Blood Pressure 160/78 H 158/72 H Pulse Oximetry 96 96 95 07/06/18 04:32 07/06/18 04:47 07/06/18 05:00 Temperature Pulse Rate 77 74 72 Respiratory Rate 19 17 18 Blood Pressure 150/77 H 151/77 H Pulse Oximetry 95 95 95 07/06/18 05:02 07/06/18 05:17 07/06/18 05:32 Temperature Pulse Rate 70 72 73 Respiratory Rate 17 18 17 Blood Pressure 158/78 H 144/80 H 168/81 H Pulse Oximetry 95 96 96 07/06/18 05:47 07/06/18 06:00 07/06/18 06:02 Temperature Pulse Rate 76 74 77 Respiratory Rate 16 22 23 Blood Pressure 158/72 H 160/79 H Pulse Oximetry 96 96 96 07/06/18 06:17 07/06/18 06:32 07/06/18 06:47 Temperature Pulse Rate 79 69 75 Respiratory Rate 20 18 19 Blood Pressure 152/73 H 150/79 H 158/77 H Pulse Oximetry 96 95 97 07/06/18 07:00 07/06/18 07:02 07/06/18 07:17 Temperature Pulse Rate 72 72 75 Respiratory Rate 17 19 19 Blood Pressure 159/73 H 137/75 Pulse Oximetry 97 97 98 07/06/18 07:32 07/06/18 07:47 07/06/18 08:00 Temperature Pulse Rate 82 76 79 Respiratory Rate 14 21 24 Blood Pressure 153/74 H 142/69 H Pulse Oximetry 97 97 98 07/06/18 08:02 07/06/18 08:17 07/06/18 09:00 Temperature 98.7 F Pulse Rate 75 81 70 Respiratory Rate 29 H 21 21 Blood Pressure 147/77 H 140/76 Pulse Oximetry 97 96 96 07/06/18 09:03 07/06/18 09:10 07/06/18 09:25 Temperature Pulse Rate 78 77 75 Respiratory Rate 23 21 27 H Blood Pressure 114/56 L 150/76 H 151/81 H Pulse Oximetry 96 97 96 07/06/18 10:00 07/06/18 10:25 07/06/18 11:00 Temperature Pulse Rate 64 73 65 Respiratory Rate 17 Blood Pressure 142/81 H Pulse Oximetry 98 96 97 07/06/18 12:00 07/06/18 13:08 07/06/18 14:56 Temperature 97.8 F 97.6 F Pulse Rate 65 63 81 Respiratory Rate 16 20 Blood Pressure 143/75 H 158/77 H Pulse Oximetry 97 96 96 07/06/18 15:00 07/06/18 15:15 07/06/18 15:30 Temperature Pulse Rate 83 75 73 Respiratory Rate 24 16 15 Blood Pressure 161/77 H 160/74 H 161/79 H Pulse Oximetry 96 95 95 07/06/18 15:45 07/06/18 15:55 07/06/18 15:56 Temperature 97.9 F Pulse Rate 72 75 73 Respiratory Rate 15 22 Blood Pressure 159/77 H Pulse Oximetry 95 07/06/18 15:58 07/06/18 16:00 07/06/18 16:37 Temperature Pulse Rate 72 70 71 Respiratory Rate 20 19 22 Blood Pressure 166/77 H 161/79 H Pulse Oximetry 97 96 98 07/06/18 17:00 07/06/18 17:02 07/06/18 17:32 Temperature Pulse Rate 76 77 77 Respiratory Rate 25 H 21 19 Blood Pressure 135/67 157/74 H Pulse Oximetry 98 98 98 07/06/18 18:00 07/06/18 18:02 Temperature Pulse Rate 75 77 Respiratory Rate 27 H 19 Blood Pressure 149/72 H Pulse Oximetry 98 98 Intake & Output 07/06/18 07/06/18 07/07/18 06:59 18:59 06:59 Intake Total 105 / 105 1010 / 1010 Output Total 1625 / 1625 5 / 5 Balance -1520 / -1520 1005 / 1005 Weight 85.9 kg Intake: IV 105 / 105 310 / 310 Potassium Phosphate Inj 30 MMOL 260 / 260 In NS Inj 250 ML @ 42 mls/hr IV.SIG UNSCH PRN Rx#:[id number] Ancef 2 GM Premix Inj 2 gm In 50 / 50 50 ml @ 100 mls/hr IV.SIG ONCE ONE Rx#:[id number] Keppra Inj 500 MG In NS Inj 100 105 / 105 ML @ 400 mls/hr IV.SIG Q12H [facility] Rx#:[id number] Oral 0 / 0 Anesthesia Amount 700 / 700 Output: Urine 1625 / 1625 0 / 0 Estimated Blood Loss 5 / 5 Other: Date of Last Bowel Movement 07/04/18 07/04/18 # Incontinent Bowel Movements 1 - Routine Neurological Exam alert, speech normal CN--trace right upper motor neuron 7 palsey, EOM intact. 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 5/5 distal RLE 5/5 LUE and LLE Objective Laboratory Results - last 24 hr 07/05/18 07/05/18 07/06/18 12:54 23:38 02:46 WBC 5.2 RBC 3.81 L Hgb 13.0 Hct 37.3 L MCV 97.8 MCH 34.2 H MCHC 34.9 RDW 12.9 Plt Count 103 L MPV 8.9 Neut % (Auto) 75.0 H Lymph % (Auto) 13.1 [place] % (Auto) 10.6 H Eos % (Auto) 0.6 Baso % (Auto) 0.7 Neut # (Auto) 3.9 Lymph # (Auto) 0.7 L [place] # (Auto) 0.5 Eos # (Auto) 0.0 Baso # (Auto) 0.0 WBC Differential . Differential Comment Auto diff final PT INR Sodium Potassium Chloride Carbon Dioxide Anion Gap BUN Creatinine Estimated GFR POC Glucose 117 H Random Glucose Calcium Phosphorus Magnesium Total Bilirubin AST ALT Alkaline Phosphatase Total Protein Albumin Rout Panel Path Interp 07/06/18 07/06/18 07/06/18 02:46 05:22 07:34 WBC 5.5 RBC 3.78 L Hgb 12.6 L Hct 36.9 L MCV 97.6 MCH 33.3 MCHC 34.1 RDW 12.9 Plt Count 110 L MPV 9.0 Neut % (Auto) 71.6 H Lymph % (Auto) 16.1 [place] % (Auto) 11.1 H Eos % (Auto) 0.8 Baso % (Auto) 0.4 Neut # (Auto) 3.9 Lymph # (Auto) 0.9 L [place] # (Auto) 0.6 Eos # (Auto) 0.0 Baso # (Auto) 0.0 WBC Differential . Differential Comment Auto diff final PT INR Sodium 141 Potassium 3.2 L Chloride 107 Carbon Dioxide 24.6 Anion Gap 9 BUN 8 Creatinine 0.87 Estimated GFR 88 L POC Glucose 122 H Random Glucose 101 Calcium 8.6 Phosphorus 2.1 L Magnesium 1.7 Total Bilirubin 1.2 H AST 74 H ALT 57 Alkaline Phosphatase 120 H Total Protein 7.4 Albumin 3.2 L Rout Panel Path Interp 07/06/18 07/06/18 07/06/18 07:34 07:34 12:38 WBC RBC Hgb Hct MCV MCH MCHC RDW Plt Count MPV Neut % (Auto) Lymph % (Auto) [place] % (Auto) Eos % (Auto) Baso % (Auto) Neut # (Auto) Lymph # (Auto) [place] # (Auto) Eos # (Auto) Baso # (Auto) WBC Differential Differential Comment PT 10.4 INR 1.0 Sodium 141 Potassium 3.4 L Chloride 108 H Carbon Dioxide 24.7 Anion Gap 8 BUN 9 Creatinine 0.96 Estimated GFR 79 L POC Glucose 114 H Random Glucose 95 Calcium 8.3 L Phosphorus Magnesium 1.7 Total Bilirubin 1.3 H AST 64 H ALT 50 Alkaline Phosphatase 115 Total Protein 7.1 Albumin 3.1 L Rout Panel Path Interp 07/06/18 07/06/18 15:20 17:50 WBC RBC Hgb Hct MCV MCH MCHC RDW Plt Count MPV Neut % (Auto) Lymph % (Auto) [place] % (Auto) Eos % (Auto) Baso % (Auto) Neut # (Auto) Lymph # (Auto) [place] # (Auto) Eos # (Auto) Baso # (Auto) WBC Differential Differential Comment PT INR Sodium Potassium 3.7 Chloride Carbon Dioxide Anion Gap BUN Creatinine Estimated GFR POC Glucose 163 H Random Glucose Calcium Phosphorus 3.4 D Magnesium Total Bilirubin AST ALT Alkaline Phosphatase Total Protein Albumin Rout Panel Path Interp Review/Management - Review/Management Plan: left thalamic hemorrhage--probably hypertensive left carotid occlusion Neuro exam stable
[2018-07-07] MEDS: Insulin NovoLIN Regular Correctional Sugar Inj SQ SCH ×4 (00:15→18:24)
[2018-07-07] MEDS: Chlorhexidine Gluconate 2% 1 Pack (2 Cloths) TOPICAL SCH (03:46)
[2018-07-07 05:09] LABS: Baso % (Auto) 0.1 % (0.0-2.0); Hematocrit 35.8 % (39.0-51.0); Hemoglobin 12.5 gm/dL (13.0-17.0); Lymph # (Auto) 0.5 th/mm3 (1.0-4.8); Lymph % (Auto) 14.9 % (9.0-44.0); Mean Corpuscular HGB Conc 34.8 % (32.0-36.0); Mean Corpuscular Hemoglobin 33.7 pg (27.0-34.0); Mean Corpuscular Volume 96.7 fL (80.0-100.0); Mean Platelet Volume 8.7 fL (7.0-11.0); Mono # (Auto) 0.2 th/mm3 (0.0-0.9); Neut # (Auto) 2.8 th/mm3 (1.8-7.7); Platelet Count 105 th/mm3 (150-450); Red Cell Distribution Width 12.9 % (11.6-17.2); White Blood Count 3.5 th/mm3 (4.0-11.0)
[2018-07-07 05:23] LABS: Albumin 3.1 g/dL (3.4-5.0); Anion Gap 11 meq/L (5-15); Aspartate Aminotransferase 49 U/L (15-37); Blood Urea Nitrogen 18 mg/dL (7-18); Calcium 8.4 mg/dL (8.5-10.1); Carbon Dioxide 22.5 meq/L (21.0-32.0); Chloride 107 meq/L (98-107); Glomerular Filtration Rate 66 mL/min (>89); Glucose,Random 136 mg/dL (74-106); Potassium 3.6 meq/L (3.5-5.1); Sodium 140 meq/L (136-145)
[2018-07-07 05:24] LABS: Alanine Aminotransferase 42 U/L (12-78)
[2018-07-07 05:26] LABS: Alkaline Phosphatase 107 U/L (45-117); Phosphorus 2.4 mg/dL (2.5-4.9); Total Protein 7.4 g/dL (6.4-8.2)
[2018-07-07] MEDS: levETIRAcetam 500 MG Tablet PO SCH ×2 (09:08→21:28)
[2018-07-07] MEDS: Folic Acid 1 MG Tablet PO SCH (09:08)
[2018-07-07] MEDS: Lisinopril 10 MG Tablet PO SCH (09:08)
[2018-07-07] MEDS: Famotidine PF Inj 20 MG/2 ML Vial IV.PUSH SCH ×2 (09:08→21:29)
[2018-07-07] MEDS: Metoprolol Tartrate 25 MG Tablet PO SCH ×2 (09:08→21:28)
[2018-07-07] MEDS: Senna/Docusate Sodium 8.6/50 MG Tablet PO SCH ×2 (09:08→21:28)
[2018-07-07] MEDS: Citalopram 20 MG Tablet PO SCH (09:08)
[2018-07-07] MEDS: Famotidine 20 MG Tablet PO SCH ×2 (09:08→21:28)
--- NOTE | 2018-07-07 15:28 | P.PNVS ---
Subjective Subjective/Hospital Course: This pleasant 63-year-old gentleman was admitted through the [place] [facility]. He started complaining about severe headaches yesterday and then states he suffered something like loss of consciousness. He states that he did not lose consciousness, yet he felt he was not "quite there." The patient also noticed weakness in his right arm and leg and some numbness. The patient was transferred to the emergency room. He was found to have a left hemorrhagic acute stroke and severe hypertension. In the process of the workup, he was found to have a left foot proximal metatarsal ulcer and a question arose about vascular supply. I reviewed laboratory and diagnostic procedures. The gentleman has excellent distal pulses in both legs that are palpable proximally and distally and capillary refill is normal. In the face of this, the patient does not require any further vascular workup. As far as the stroke is concerned, the patient has had a previous stroke and I am not sure how this was handled and what was done. The patient lives in [place], so their system may be different in how they go about it. Carotid ultrasound reveals previously known left internal carotid artery occlusion and about 50-70% stenosis of the right internal carotid artery about an inch distal to the bulb MRA of the carotids reveals only about 50% right internal carotid artery stenosis and therefore no surgery is indicated at this time Patient should follow-up in my office in about 6 months at which point we going to do another ultrasound and then annually Considering the patient is from [place], he will need to be followed by physician there and then when he comes back down here I will see him in the follow-up as well 07/07/2018 Patient neurologically slowly improving Combination of ultrasound and MRA has elucidated the right carotid artery which is minimally stenosed and therefore patient does not require any surgical intervention at this time He will need 6 months follow-up and then annual follow-up with carotid ultrasound to carefully monitor the right internal carotid artery for this is always got left at this time Nothing to add from my point Objective Vital Signs / I&O: Vital Signs 07/06/18 15:30 07/06/18 15:45 07/06/18 15:55 Temperature 97.9 F Pulse Rate 73 72 75 Respiratory Rate 15 15 Blood Pressure 161/79 H 159/77 H Pulse Oximetry 95 95 07/06/18 15:56 07/06/18 15:58 02/25/19 16:00 Temperature Pulse Rate 73 72 70 Respiratory Rate 22 20 19 Blood Pressure 166/77 H Pulse Oximetry 97 96 07/06/18 16:37 07/06/18 17:00 07/06/18 17:02 Temperature Pulse Rate 71 76 77 Respiratory Rate 22 25 H 21 Blood Pressure 161/79 H 135/67 Pulse Oximetry 98 98 98 07/06/18 17:32 07/06/18 18:00 07/06/18 18:02 Temperature Pulse Rate 77 75 77 Respiratory Rate 19 27 H 19 Blood Pressure 157/74 H 149/72 H Pulse Oximetry 98 98 98 07/06/18 18:32 07/06/18 19:00 07/06/18 19:02 Temperature Pulse Rate 72 80 84 Respiratory Rate 24 18 24 Blood Pressure 151/72 H 159/76 H Pulse Oximetry 97 98 97 07/06/18 19:32 07/06/18 20:00 07/06/18 20:02 Temperature 98.1 F Pulse Rate 81 77 76 Respiratory Rate 19 22 18 Blood Pressure 157/72 H 138/69 Pulse Oximetry 98 97 97 07/06/18 20:32 07/06/18 21:00 07/06/18 21:02 Temperature Pulse Rate 78 75 75 Respiratory Rate 18 17 17 Blood Pressure 147/70 H 135/69 Pulse Oximetry 98 97 97 07/06/18 21:32 07/06/18 22:00 07/06/18 22:02 Temperature Pulse Rate 73 72 67 Respiratory Rate 20 32 H 28 H Blood Pressure 151/72 H 152/74 H Pulse Oximetry 96 97 97 07/06/18 22:32 07/06/18 23:00 07/06/18 23:02 Temperature Pulse Rate 66 68 68 Respiratory Rate 17 23 21 Blood Pressure 150/71 H 158/77 H Pulse Oximetry 96 97 97 07/06/18 23:32 07/06/18 23:33 07/07/18 00:00 Temperature 98.5 F Pulse Rate 67 72 Respiratory Rate 18 31 H Blood Pressure 153/74 H Pulse Oximetry 97 97 97 07/07/18 00:02 07/07/18 00:32 07/07/18 01:00 Temperature Pulse Rate 67 64 70 Respiratory Rate 22 17 26 H Blood Pressure 156/76 H 159/76 H Pulse Oximetry 97 96 95 07/07/18 01:02 07/07/18 01:32 07/07/18 02:00 Temperature Pulse Rate 71 72 63 Respiratory Rate 23 25 H 18 Blood Pressure 160/77 H 158/80 H Pulse Oximetry 94 L 96 97 07/07/18 02:02 07/07/18 02:32 07/07/18 03:00 Temperature Pulse Rate 63 58 L 74 Respiratory Rate 17 19 29 H Blood Pressure 137/66 137/65 Pulse Oximetry 97 96 98 07/07/18 03:02 07/07/18 03:32 07/07/18 03:45 Temperature Pulse Rate 67 70 67 Respiratory Rate 20 23 Blood Pressure 156/80 H 146/84 H Pulse Oximetry 98 98 07/07/18 04:00 07/07/18 04:14 07/07/18 05:00 Temperature Pulse Rate 69 68 73 Respiratory Rate 19 24 18 Blood Pressure 144/71 H Pulse Oximetry 97 96 99 07/07/18 05:35 07/07/18 05:36 07/07/18 05:38 Temperature Pulse Rate 73 74 80 Respiratory Rate 25 H 23 20 Blood Pressure 168/85 H 158/78 H Pulse Oximetry 96 97 98 07/07/18 06:00 07/07/18 06:23 07/07/18 07:00 Temperature 97.5 F L Pulse Rate 68 69 57 L Respiratory Rate 19 19 Blood Pressure 138/66 Pulse Oximetry 97 97 07/07/18 07:41 07/07/18 08:00 07/07/18 09:00 Temperature Pulse Rate 68 96 H Respiratory Rate 23 21 Blood Pressure 166/80 H 154/90 H Pulse Oximetry 97 96 07/07/18 09:52 07/07/18 10:00 07/07/18 10:04 Temperature Pulse Rate 70 65 Respiratory Rate 22 Blood Pressure 144/76 H 144/67 H Pulse Oximetry 100 07/07/18 10:07 07/07/18 11:00 07/07/18 11:07 Temperature Pulse Rate 70 61 61 Respiratory Rate 22 16 22 Blood Pressure 125/107 H 144/74 H Pulse Oximetry 94 L 98 97 07/07/18 12:00 07/07/18 13:00 07/07/18 14:00 Temperature 98.0 F Pulse Rate 64 65 60 Respiratory Rate 20 26 H 20 Blood Pressure 155/82 H 127/69 Pulse Oximetry 97 96 98 07/07/18 15:00 Temperature Pulse Rate 63 Respiratory Rate 18 Blood Pressure Pulse Oximetry 98 Intake & Output 07/06/18 07/07/18 07/07/18 18:59 06:59 18:59 Intake Total 1010 / 1010 0 / 0 240 / 240 Output Total 400 / 400 420 / 420 Balance 1005 / 1005 -400 / -400 -180 / -180 Weight 81.7 kg Intake: IV 310 / 310 Potassium Phosphate Inj 30 MMOL 260 / 260 In NS Inj 250 ML @ 42 mls/hr IV.SIG UNSCH PRN Rx#:[id number] Ancef 2 GM Premix Inj 2 gm In 50 / 50 50 ml @ 100 mls/hr IV.SIG ONCE ONE Rx#:[id number] Oral 0 / 0 0 / 0 240 / 240 Anesthesia Amount 700 / 700 Output: Urine 0 / 0 400 / 400 420 / 420 Estimated Blood Loss Other: # Voids 1 Date of Last Bowel Movement 07/04/18 07/06/18 07/07/18 # Bowel Movements 2 # Incontinent Bowel Movements 1 Laboratory Results - last 24 hr 07/06/18 07/06/18 07/07/18 15:20 17:50 00:08 WBC RBC Hgb Hct MCV MCH MCHC RDW Plt Count MPV Neut % (Auto) Lymph % (Auto) [place] % (Auto) Eos % (Auto) Baso % (Auto) Neut # (Auto) Lymph # (Auto) [place] # (Auto) Eos # (Auto) Baso # (Auto) WBC Differential Differential Comment Sodium Potassium 3.7 Chloride Carbon Dioxide Anion Gap BUN Creatinine Estimated GFR POC Glucose 163 H 196 H Random Glucose Calcium Phosphorus 3.4 D Magnesium Total Bilirubin AST ALT Alkaline Phosphatase Total Protein Albumin 07/07/18 07/07/18 07/07/18 03:44 03:44 05:39 WBC 3.5 L RBC 3.70 L Hgb 12.5 L Hct 35.8 L MCV 96.7 MCH 33.7 MCHC 34.8 RDW 12.9 Plt Count 105 L MPV 8.7 Neut % (Auto) 80.0 H Lymph % (Auto) 14.9 [place] % (Auto) 5.0 Eos % (Auto) 0.0 Baso % (Auto) 0.1 Neut # (Auto) 2.8 Lymph # (Auto) 0.5 L [place] # (Auto) 0.2 Eos # (Auto) 0.0 Baso # (Auto) 0.0 WBC Differential . Differential Comment Auto diff final Sodium 140 Potassium 3.6 Chloride 107 Carbon Dioxide 22.5 Anion Gap 11 BUN 18 Creatinine 1.11 Estimated GFR 66 L POC Glucose 161 H Random Glucose 136 H Calcium 8.4 L Phosphorus 2.4 L D Magnesium 2.0 Total Bilirubin 0.9 AST 49 H ALT 42 Alkaline Phosphatase 107 Total Protein 7.4 Albumin 3.1 L 07/07/18 12:16 WBC RBC Hgb Hct MCV MCH MCHC RDW Plt Count MPV Neut % (Auto) Lymph % (Auto) [place] % (Auto) Eos % (Auto) Baso % (Auto) Neut # (Auto) Lymph # (Auto) [place] # (Auto) Eos # (Auto) Baso # (Auto) WBC Differential Differential Comment Sodium Potassium Chloride Carbon Dioxide Anion Gap BUN Creatinine Estimated GFR POC Glucose 143 H Random Glucose Calcium Phosphorus Magnesium Total Bilirubin AST ALT Alkaline Phosphatase Total Protein Albumin Microbiology 07/06/18 14:33 Gram Stain - Final Wound - Foot Wound Culture - Preliminary Beta Strep not A,B or D 07/06/18 14:33 Fungal Smear - Final Wound - Foot No fungal elements seen Impressions Carotid Doppler Study 07/05/18 00:00 CONCLUSION: 1. Right Internal Carotid Artery: Findings indicate 50-69% stenosis. 2. Left Internal Carotid Artery: Not visualized and may be thrombosed. CTA examination may be obtained for further evaluation as clinically appropriate. Neck MRA 07/06/18 00:00 CONCLUSION: 1. There is complete occlusion of the left internal carotid artery just past its origin. 2. No focal high-grade or significant stenosis is seen involving the right internal carotid artery. Percent stenosis is calculated using the diameter of the stenotic region over the diameter of the normal distal internal carotid artery
--- NOTE | 2018-07-07 16:22 | P.PNIM ---
Subjective Interval history: Follow-up for acute hemorrhagic left thalamus CVA. Patient is doing well. Denies any chest pain, SOB, fever, chills. It is hard for him to get up and take steps due to loss of proprioception on the right side. Physical Exam Vital signs: Vital Signs 07/06/18 16:37 07/06/18 17:00 07/06/18 17:02 Temperature Pulse Rate 71 76 77 Respiratory Rate 22 25 H 21 Blood Pressure 161/79 H 135/67 Pulse Oximetry 98 98 98 07/06/18 17:32 07/06/18 18:00 07/06/18 18:02 Temperature Pulse Rate 77 75 77 Respiratory Rate 19 27 H 19 Blood Pressure 157/74 H 149/72 H Pulse Oximetry 98 98 98 07/06/18 18:32 07/06/18 19:00 07/06/18 19:02 Temperature Pulse Rate 72 80 84 Respiratory Rate 24 18 24 Blood Pressure 151/72 H 159/76 H Pulse Oximetry 97 98 97 07/06/18 19:32 07/06/18 20:00 07/06/18 20:02 Temperature 98.1 F Pulse Rate 81 77 76 Respiratory Rate 19 22 18 Blood Pressure 157/72 H 138/69 Pulse Oximetry 98 97 97 07/06/18 20:32 07/06/18 21:00 07/06/18 21:02 Temperature Pulse Rate 78 75 75 Respiratory Rate 18 17 17 Blood Pressure 147/70 H 135/69 Pulse Oximetry 98 97 97 07/06/18 21:32 07/06/18 22:00 07/06/18 22:02 Temperature Pulse Rate 73 72 67 Respiratory Rate 20 32 H 28 H Blood Pressure 151/72 H 152/74 H Pulse Oximetry 96 97 97 07/06/18 22:32 07/06/18 23:00 07/06/18 23:02 Temperature Pulse Rate 66 68 68 Respiratory Rate 17 23 21 Blood Pressure 150/71 H 158/77 H Pulse Oximetry 96 97 97 07/06/18 23:32 07/06/18 23:33 07/07/18 00:00 Temperature 98.5 F Pulse Rate 67 72 Respiratory Rate 18 31 H Blood Pressure 153/74 H Pulse Oximetry 97 97 97 07/07/18 00:02 07/07/18 00:32 07/07/18 01:00 Temperature Pulse Rate 67 64 70 Respiratory Rate 22 17 26 H Blood Pressure 156/76 H 159/76 H Pulse Oximetry 97 96 95 07/07/18 01:02 07/07/18 01:32 07/07/18 02:00 Temperature Pulse Rate 71 72 63 Respiratory Rate 23 25 H 18 Blood Pressure 160/77 H 158/80 H Pulse Oximetry 94 L 96 97 07/07/18 02:02 07/07/18 02:32 07/07/18 03:00 Temperature Pulse Rate 63 58 L 74 Respiratory Rate 17 19 29 H Blood Pressure 137/66 137/65 Pulse Oximetry 97 96 98 07/07/18 03:02 07/07/18 03:32 07/07/18 03:45 Temperature Pulse Rate 67 70 67 Respiratory Rate 20 23 Blood Pressure 156/80 H 146/84 H Pulse Oximetry 98 98 07/07/18 04:00 07/07/18 04:14 07/07/18 05:00 Temperature Pulse Rate 69 68 73 Respiratory Rate 19 24 18 Blood Pressure 144/71 H Pulse Oximetry 97 96 99 07/07/18 05:35 07/07/18 05:36 07/07/18 05:38 Temperature Pulse Rate 73 74 80 Respiratory Rate 25 H 23 20 Blood Pressure 168/85 H 158/78 H Pulse Oximetry 96 97 98 07/07/18 06:00 07/07/18 06:23 07/07/18 07:00 Temperature 97.5 F L Pulse Rate 68 69 57 L Respiratory Rate 19 19 Blood Pressure 138/66 Pulse Oximetry 97 97 07/07/18 07:41 07/07/18 08:00 07/07/18 09:00 Temperature Pulse Rate 68 96 H Respiratory Rate 23 21 Blood Pressure 166/80 H 154/90 H Pulse Oximetry 97 96 07/07/18 09:52 07/07/18 10:00 07/07/18 10:04 Temperature Pulse Rate 70 65 Respiratory Rate 22 Blood Pressure 144/76 H 144/67 H Pulse Oximetry 100 07/07/18 10:07 07/07/18 11:00 07/07/18 11:07 Temperature Pulse Rate 70 61 61 Respiratory Rate 22 16 22 Blood Pressure 125/107 H 144/74 H Pulse Oximetry 94 L 98 97 07/07/18 12:00 07/07/18 13:00 07/07/18 14:00 Temperature 98.0 F Pulse Rate 64 65 60 Respiratory Rate 20 26 H 20 Blood Pressure 155/82 H 127/69 Pulse Oximetry 97 96 98 07/07/18 15:00 Temperature Pulse Rate 63 Respiratory Rate 18 Blood Pressure Pulse Oximetry 98 Intake & Output 07/06/18 07/07/18 07/07/18 18:59 06:59 18:59 Intake Total 1010 / 1010 0 / 0 240 / 240 Output Total 5 / 5 400 / 400 420 / 420 Balance 1005 / 1005 -400 / -400 -180 / -180 Weight 81.7 kg Intake: IV 310 / 310 Potassium Phosphate Inj 30 MMOL 260 / 260 In NS Inj 250 ML @ 42 mls/hr IV.SIG UNSCH PRN Rx#:[id number] Ancef 2 GM Premix Inj 2 gm In 50 / 50 50 ml @ 100 mls/hr IV.SIG ONCE ONE Rx#:[id number] Oral 0 / 0 0 / 0 240 / 240 Anesthesia Amount 700 / 700 Output: Urine 0 / 0 400 / 400 420 / 420 Estimated Blood Loss 5 / 5 Other: # Voids 1 Date of Last Bowel Movement 07/04/18 07/06/18 07/07/18 # Bowel Movements 2 # Incontinent Bowel Movements 1 Narrative: GENERAL: Well-nourished, well-developed patient. SKIN: Warm and dry. HEAD: Normocephalic. EYES: No scleral icterus. No injection or drainage. NECK: Supple, trachea midline. No JVD or lymphadenopathy. CARDIOVASCULAR: Regular rate and rhythm without murmurs, gallops, or rubs. RESPIRATORY: Breath sounds equal bilaterally. No accessory muscle use. GASTROINTESTINAL: Abdomen soft, non-tender, nondistended. MUSCULOSKELETAL: No cyanosis, or edema. Right upper extremity is slightly weaker than left. Right lower extremities strength appears to be equal. BACK: Nontender without obvious deformity. No CVA tenderness. Results Labs CBC & Chem 7: 07/07/18 03:44 07/07/18 03:44 Labs: Microbiology 07/06/18 14:33 Wound - Foot Gram Stain - Final 07/06/18 14:33 Wound - Foot Wound Culture - Preliminary Beta Strep not A,B or D 07/06/18 14:33 Wound - Foot Fungal Smear - Final No fungal elements seen Imaging Imaging: Carotid Doppler Study 07/05/18 00:00 CONCLUSION: 1. Right Internal Carotid Artery: Findings indicate 50-69% stenosis. 2. Left Internal Carotid Artery: Not visualized and may be thrombosed. CTA examination may be obtained for further evaluation as clinically appropriate. Foot MRI 07/05/18 00:00 CONCLUSION: 1. Findings as above with inflammatory changes evident from skin to undersurface of the first MTP joint involving flexor tendon of the first phalanx. There are some mild marrow signal alterations that could be only degenerative. Findings are minimal. 2. There is no evidence of deep space abscess Foot X-Ray 07/05/18 00:00 CONCLUSION: 1. Soft tissue prominence with ulceration in the medial plantar proximal toe with heterotopic ossification at the head of the first metatarsal and subtle erosive change along the medial proximal first metatarsal. Differential considerations include chronic or prior osteomyelitis. Patient has an MRI examination pending. Head MRI 07/05/18 00:00 CONCLUSION: 1. MRI is consistent with acute focal left thalamic hemorrhage without enhancement to suggest underlying mass. 2. Follow-up MRI would be of benefit proximal to 6 weeks to ensure this involving as a small lacunar type hemorrhage.. 3. This does involve the posterior limb of the internal capsule. Head CT 07/05/18 01:33 CONCLUSION: 1. Acute left thalamic hemorrhage without significant mass effect. Report was called by Dr. Mckeon to Dr. He.. Neck MRA 07/06/18 00:00 CONCLUSION: 1. There is complete occlusion of the left internal carotid artery just past its origin. 2. No focal high-grade or significant stenosis is seen involving the right internal carotid artery. Percent stenosis is calculated using the diameter of the stenotic region over the diameter of the normal distal internal carotid artery Assessment and Plan Plan Mr. Chauhan is a pleasant 63-year-old male from [place] with history of hypertension, dyslipidemia, and TIA who presented to the [facility] on 07/05/2018 with sudden-onset headache and right upper/ lower extremity numbness and weakness. A CT study showed acute left thalamic hemorrhagic stroke. Acute left thalamic hemorrhagic cerebrovascular accident History of TIA Appreciate neurology, neurosurgery input. Patient was on aspirin 81 mg daily prior to this incident. Continue atorvastatin 80 mg daily Carotid Doppler ultrasound showed nonvisualized and possibly thrombosed left internal carotid artery. MRI neck shows similar findings. Dr. Sylvester recommends no surgical intervention at this point. 6 Month follow up. Hypertension Anxiety Continue lisinopril 10 mg p.o. daily, IV labetalol and hydralazine as needed. Currently systolic blood pressure in the 150s. Will increase Lisinopril 20mg Qday. Goal blood pressure systolic within 140-160 range Continue alprazolam 0.5 mg p.o. every 6 hours as needed Alcohol abuse Continue folic acid and thiamine. Transfer to the floor. Full code. SCDs. Progress Note: Quality VTE Deep Vein Thrombosis/Pulmonary Embolism Present on Admission: No
[2018-07-08] MEDS: Insulin NovoLIN Regular Correctional Sugar Inj SQ SCH ×4 (01:09→17:39)
[2018-07-08 04:00] LABS: Baso % (Auto) 0.2 % (0.0-2.0); Eos % (Auto) 0.4 % (0.0-4.0); Hematocrit 36.7 % (39.0-51.0); Hemoglobin 12.7 gm/dL (13.0-17.0); Lymph # (Auto) 1.7 th/mm3 (1.0-4.8); Mean Corpuscular HGB Conc 34.6 % (32.0-36.0); Mean Corpuscular Hemoglobin 33.5 pg (27.0-34.0); Mean Platelet Volume 9.2 fL (7.0-11.0); Mono # (Auto) 0.6 th/mm3 (0.0-0.9); Mono % (Auto) 9.5 % (0.0-8.0); Neut # (Auto) 3.8 th/mm3 (1.8-7.7); Neut % (Auto) 61.9 % (16.0-70.0); Platelet Count 101 th/mm3 (150-450); Red Blood Count 3.79 mil/mm3 (4.50-5.90); Red Cell Distribution Width 12.8 % (11.6-17.2); White Blood Count 6.1 th/mm3 (4.0-11.0)
[2018-07-08 04:23] LABS: Calcium 8.1 mg/dL (8.5-10.1); Carbon Dioxide 24.8 meq/L (21.0-32.0); Potassium 3.6 meq/L (3.5-5.1)
[2018-07-08 04:25] LABS: Phosphorus 2.9 mg/dL (2.5-4.9)
[2018-07-08] MEDS: Chlorhexidine Gluconate 2% 1 Pack (2 Cloths) TOPICAL SCH (06:37)
--- NOTE | 2018-07-08 08:17 | P.PNPOD ---
Subjective Interval history: No events overnight feels he is improving having a hard time staying off the foot utilizing postoperative shoe, left Physical Exam Vital signs: Vital Signs 07/07/18 09:00 07/07/18 09:52 07/07/18 10:00 Temperature Pulse Rate 96 H 70 65 Respiratory Rate 21 22 Blood Pressure 154/90 H 144/76 H Pulse Oximetry 100 07/07/18 10:04 07/07/18 10:07 07/07/18 11:00 Temperature Pulse Rate 70 61 Respiratory Rate 22 16 Blood Pressure 144/67 H 125/107 H Pulse Oximetry 94 L 98 07/07/18 11:07 07/07/18 12:00 07/07/18 13:00 Temperature 98.0 F Pulse Rate 61 64 65 Respiratory Rate 22 20 26 H Blood Pressure 144/74 H 155/82 H Pulse Oximetry 97 97 96 07/07/18 14:00 07/07/18 15:00 07/07/18 16:00 Temperature 97.9 F Pulse Rate 60 63 65 Respiratory Rate 20 18 22 Blood Pressure 127/69 156/91 H Pulse Oximetry 98 98 99 07/07/18 17:00 07/07/18 18:00 07/07/18 19:00 Temperature Pulse Rate 66 67 63 Respiratory Rate 20 20 19 Blood Pressure 159/74 H 152/85 H 141/76 H Pulse Oximetry 98 98 97 07/07/18 20:00 07/07/18 21:00 07/07/18 22:00 Temperature 98 F Pulse Rate 62 61 60 Respiratory Rate 17 22 17 Blood Pressure 167/77 H 151/71 H 147/71 H Pulse Oximetry 99 99 99 07/07/18 23:00 07/07/18 23:08 07/08/18 00:00 Temperature 98.2 F Pulse Rate 65 69 69 Respiratory Rate 24 17 Blood Pressure 129/66 154/76 H Pulse Oximetry 96 95 07/08/18 01:00 07/08/18 02:00 07/08/18 03:00 Temperature Pulse Rate 68 57 L 65 Respiratory Rate 18 19 17 Blood Pressure 153/75 H 149/59 H Pulse Oximetry 95 96 97 07/08/18 03:14 07/08/18 03:29 07/08/18 04:00 Temperature 98.2 F Pulse Rate 55 L 65 Respiratory Rate 15 14 Blood Pressure 142/71 H 140/67 Pulse Oximetry 95 95 94 L 07/08/18 04:20 07/08/18 05:00 07/08/18 06:00 Temperature Pulse Rate 60 62 54 L Respiratory Rate 15 13 Blood Pressure 136/65 134/63 Pulse Oximetry 96 96 07/08/18 07:28 Temperature Pulse Rate Respiratory Rate Blood Pressure Pulse Oximetry 97 Intake & Output 07/07/18 07/08/18 07/08/18 18:59 06:59 18:59 Intake Total 480 / 480 Output Total 670 / 670 725 / 725 Balance -190 / -190 -725 / -725 Weight 80.3 kg Intake: Oral 480 / 480 Output: Urine 670 / 670 725 / 725 Other: # Voids 3 Date of Last Bowel Movement 07/07/18 # Bowel Movements 2 - Constitutional no acute distress - Neurological Alert and oriented x3, Motor deficit Comments: Mild weakness right lower extremity Left lower extremity good motion in all quadrants - Routine Extremities Exam Comments: Left lower extremity plantar medial incision with sutures intact, mild dried blood at the incision edge with no obvious signs of wound opening, infection, redness and/or drainage, foot is warm sensation decreased to light touch Medications and Allergies Active Medications: Active Medications Acetaminophen (Tylenol) 650 mg PO Q6H PRN PRN Reason: PAIN 1-10 AND/OR FEVER >101F Last Admin: 07/06/18 18:02 Dose: 650 mg Al Hydroxide/Mg Hydroxide (Milk Of Magnsrikanth Liq) 30 ml PO Q12H PRN PRN Reason: Mild Constipation Albuterol (Duoneb Neb (Prn)) 1 ampul NEB Q2HR NEB PRN PRN Reason: WHEEZING Alprazolam (Xanax) 0.5 mg PO Q6HR PRN PRN Reason: ANXIETY Atorvastatin Calcium (Lipitor) 80 mg PO DAILY [facility] Last Admin: 07/07/18 09:07 Dose: 80 mg Bisacodyl (Dulcolax Supp) 10 mg RECTAL DAILY PRN PRN Reason: SEVERE CONSITIPATION Chlorhexidine Gluconate (Chlorhexidine 2% Cloth) 3 pack TOPICAL DAILY@0400 [facility] Stop: 07/10/18 03:59 Last Admin: 07/08/18 06:37 Dose: 3 pack Chlorhexidine Gluconate (Chlorhexidine 2% Cloth) 3 pack TOPICAL DAILY@0400 PRN PRN Reason: Extra cloth needed Stop: 07/10/18 03:59 Citalopram Hydrobromide (Celexa) 10 mg PO DAILY [facility] Last Admin: 07/07/18 09:08 Dose: 10 mg Dextrose (D50w Vial) 50 ml IV.PUSH UNSCH PRN PRN Reason: PER HYPOGLYCEMIA PROTOCOL Enalaprilat (Vasotec Inj) 1.25 mg IV.PUSH Q6H PRN PRN Reason: Sbp>140, Dbp>90 Escitalopram Oxalate (Lexapro) 20 mg PO DAILY [facility] Last Admin: 07/07/18 09:07 Dose: 20 mg Famotidine (Pepcid) 20 mg PO BID [facility] Last Admin: 07/07/18 21:28 Dose: 20 mg Famotidine (Pepcid Pf Inj) 20 mg IV.PUSH Q12HR [facility] Last Admin: 07/07/18 21:29 Dose: Not Given Folic Acid (Folic Acid) 1 mg PO DAILY [facility] Last Admin: 07/07/18 09:08 Dose: 1 mg Glucagon (Glucagon Inj) 1 mg OTHER PRN PRN PRN Reason: for Hypoglycemia Protocol Hydralazine HCl (Apresoline Inj) 20 mg IV.PUSH Q4H PRN PRN Reason: Sbp>140, Dbp>90 Last Admin: 07/06/18 16:40 Dose: 20 mg Nicardipine HCl 25 mg/ Sodium (Chloride) 250 mls @ 50 mls/hr IV.CONT TITRATE PRN; Protocol PRN Reason: Per Protocol Last Titration: 07/06/18 02:57 Dose: 0 mg/hr, 0 mls/hr Magnesium Sulfate 4 gm/ Sodium (Chloride) 100 mls @ 50 mls/hr IV.SIG UNSCH PRN PRN Reason: For Magnesium 0.9 - 1.1 mg/dL Magnesium Sulfate 2 gm/ Sodium (Chloride) 100 mls @ 50 mls/hr IV.SIG UNSCH PRN PRN Reason: For Magnesium 1.2 - 1.6 mg/dL Potassium Chloride (Kcl 40 Meq Premix Inj) 40 meq in 100 mls @ 25 mls/hr IV.SIG Q2H PRN PRN Reason: For Potassium 2.8 - 3.2 mEq/L Potassium Chloride (Kcl 20 Meq Premix Inj) 20 meq in 100 mls @ 50 mls/hr IV.SIG Q2H PRN PRN Reason: For Potassium 3.3 - 3.5 mEq/L Potassium Chloride (Kcl 40 Meq Premix Inj) 40 meq in 100 mls @ 25 mls/hr IV.SIG UNSCH PRN PRN Reason: For Potassium 3.3 - 3.5 mEq/L Potassium Chloride (Kcl 20 Meq Premix Inj) 20 meq in 100 mls @ 50 mls/hr IV.SIG Q2H PRN PRN Reason: For Potassium 2.8 - 3.2 mEq/L Potassium Phosphate 30 mmol/ (Sodium Chloride) 260 mls @ 42 mls/hr IV.SIG UNSCH PRN PRN Reason: SEE LABEL COMMENTS Last Infusion: 07/06/18 12:40 Dose: Infused Sodium Phosphate 30 mmol/ (Sodium Chloride) 260 mls @ 42 mls/hr IV.SIG UNSCH PRN PRN Reason: For Phosphorus < 2.5 mg/dL Insulin Human Regular (Novolin R Correctional Sugar Inj) 0 units SQ Q6HR [facility]; Protocol Last Admin: 07/08/18 06:37 Dose: Not Given Labetalol HCl (Trandate Inj) 10 mg IV.SIG Q4H PRN PRN Reason: SBP>140, DBP>90 Lactulose (Lactulose Liq) 30 ml PO DAILY PRN PRN Reason: SEVERE CONSITIPATION Levetiracetam (Keppra) 500 mg PO BID [facility] Last Admin: 07/07/18 21:28 Dose: 500 mg Lisinopril (Prinivil) 20 mg PO DAILY [facility] Magnesium Oxide (Mag-Ox) 800 mg PO UNSCH PRN PRN Reason: For Magnesium 1.2 - 1.6 mg/dL Metoprolol Tartrate (Lopressor) 12.5 mg PO BID [facility] Last Admin: 07/07/18 21:28 Dose: 12.5 mg Ondansetron HCl (Zofran Inj) 4 mg IV.PUSH Q6H PRN PRN Reason: NAUSEA OR VOMITING Potassium Chloride (Kcl Liq) 40 meq PO UNSCH PRN PRN Reason: Potassium level 3.3-3.5 mEq/L Potassium Chloride (Kcl Liq) 40 meq PO UNSCH PRN PRN Reason: POTASSIUM LESS THAN 3.5 Potassium Phosphate (K-Phos Original) 2,000 mg PO Q4H PRN PRN Reason: Phosphorus Less Than 2.5 mg/dL Potassium Phosphate (K-Phos Original) 2,000 mg PO UNSCH PRN PRN Reason: SEE LABEL COMMENTS Senna/Docusate Sodium (Alanna-Colace) 1 tab PO BID [facility] Last Admin: 07/07/18 21:28 Dose: 1 tab Sennosides (Senokot) 17.2 mg PO Q12H PRN PRN Reason: Moderate Constipation Sodium Chloride (Ns Flush) 2 ml IV.FLUSH BID [facility] Last Admin: 07/07/18 21:29 Dose: 2 ml Sodium Chloride (Ns Flush) 2 ml IV.FLUSH PRN PRN PRN Reason: FLUSH AFTER USING IV ACCESS Thiamine HCl (Vitamin B1) 100 mg PO BID [facility] Last Admin: 07/07/18 21:28 Dose: 100 mg Allergies Allergy/AdvReac Type Severity Reaction Status Date / Time No Known Allergies Allergy Verified 07/05/18 01:33 Home Medications Medication Instructions Recorded Confirmed Type Zopiclone 1 tab PO HS PRN 07/05/18 History atorvastatin 80 mg PO DAILY 07/05/18 07/05/18 History celecoxib 200 mg PO BID PRN 07/05/18 07/05/18 History citalopram 10 mg PO DAILY 07/05/18 07/05/18 History escitalopram oxalate 20 mg PO DAILY 07/05/18 07/05/18 History febuxostat [Uloric] 80 mg PO DAILY 07/05/18 07/05/18 History hydromorphone 0.5 - 1 tab PO Q4H PRN 07/05/18 07/05/18 History meloxicam 7.5 mg PO DAILY 07/05/18 07/05/18 History perindopril erbumine 4 mg PO DAILY 07/05/18 07/05/18 History tadalafil 20 mg PO DAILY 07/05/18 07/05/18 History Results - Labs CBC & Chem 7: 07/08/18 03:07 07/08/18 03:07 Laboratory Results - last 24 hr 07/05/18 07/07/18 07/07/18 07:44 12:16 17:57 WBC RBC Hgb Hct MCV MCH MCHC RDW Plt Count MPV Neut % (Auto) Lymph % (Auto) [place] % (Auto) Eos % (Auto) Baso % (Auto) Neut # (Auto) Lymph # (Auto) [place] # (Auto) Eos # (Auto) Baso # (Auto) WBC Differential Differential Comment Sodium Potassium Chloride Carbon Dioxide Anion Gap BUN Creatinine Estimated GFR POC Glucose 143 H 112 H Random Glucose Calcium Phosphorus Magnesium MTS Gel Crossmatch See Detail 07/08/18 07/08/18 07/08/18 00:56 03:07 03:07 WBC 6.1 D RBC 3.79 L Hgb 12.7 L Hct 36.7 L MCV 97.0 MCH 33.5 MCHC 34.6 RDW 12.8 Plt Count 101 L MPV 9.2 Neut % (Auto) 61.9 Lymph % (Auto) 28.0 [place] % (Auto) 9.5 H Eos % (Auto) 0.4 Baso % (Auto) 0.2 Neut # (Auto) 3.8 Lymph # (Auto) 1.7 [place] # (Auto) 0.6 Eos # (Auto) 0.0 Baso # (Auto) 0.0 WBC Differential . Differential Comment Auto diff final Sodium 141 Potassium 3.6 Chloride 109 H Carbon Dioxide 24.8 Anion Gap 7 BUN 28 H Creatinine 1.16 Estimated GFR 63 L POC Glucose 112 H Random Glucose 103 Calcium 8.1 L Phosphorus 2.9 Magnesium 2.0 MTS Gel Crossmatch Microbiology 07/06/18 14:33 Wound - Foot Gram Stain - Final 07/06/18 14:33 Wound - Foot Wound Culture - Preliminary Beta Strep not A,B or D 07/06/18 14:33 Wound - Foot Fungal Smear - Final No fungal elements seen Assessment and Plan - Assessment (1) Chronic ulcer of left foot with fat layer exposed Code(s): L97.522 - Non-pressure chronic ulcer of other part of left foot with fat layer exposed Status: Acute (2) Cellulitis of left foot Code(s): L03.116 - Cellulitis of left lower limb Status: Acute - Plan Status post ulcer ellipse and closure appears to be doing well. Bandages changed Xeroform 4 x 4 compression wrapping. Bandage can stay on for 5 -7 days unless gets wet. Nursing permitted to change bandage if needed Xeroform to incision 4 x 4 Solo wrap and George I ordered physical therapy and controlled ankle motion boot to assist with offloading. The rocker-bottom boot may help the patient keep pressure off the forefoot. Please reconsult if any changes otherwise, follow-up 1 week outpatient, patient stable for discharge from podiatry standpoint awaiting medical issues to improve.
[2018-07-08] MEDS: levETIRAcetam 500 MG Tablet PO SCH ×2 (09:15→21:14)
[2018-07-08] MEDS: Folic Acid 1 MG Tablet PO SCH (09:15)
[2018-07-08] MEDS: Citalopram 20 MG Tablet PO SCH (09:15)
[2018-07-08] MEDS: Metoprolol Tartrate 25 MG Tablet PO SCH ×2 (09:16→21:12)
[2018-07-08] MEDS: Famotidine PF Inj 20 MG/2 ML Vial IV.PUSH SCH ×2 (09:16→21:11)
[2018-07-08] MEDS: Famotidine 20 MG Tablet PO SCH ×2 (09:16→21:15)
[2018-07-08] MEDS: Lisinopril 10 MG Tablet PO SCH (09:17)
[2018-07-08] MEDS: Senna/Docusate Sodium 8.6/50 MG Tablet PO SCH ×2 (09:17→21:14)
--- NOTE | 2018-07-08 12:24 | P.CONREH ---
History of Present Illness Service: Physical medicine and rehabilitation Consult date: 07/08/18 Reason for Consult: Comprehensive rehabilitation evaluation Primary Care Provider: PROVIDER NON STAFF History of Present Illness: Parveen Licea is a 63-year-old [id number] male with history of hypertension, dyslipidemia, gout and previous TIA admitted to [facility] 07/05/18 with acute onset of headache and right upper extremity weakness/numbness. Head CT 07/05/18 showed acute left thalamic hemorrhage without significant mass- effect. This was treated nonoperatively. Brain MRI 07/05/18 showed acute focal left thalamic hemorrhage without enhancement to suggest underlying mass. Follow-up MRI at 6 weeks recommended. Patient was also noted to have chronic ulceration of the left foot and underwent debridement of left plantar foot ulcer by podiatry 07/06/18. Patient is nonweightbearing left foot. He is to follow-up with podiatry in 1 week Carotid Doppler 07/05/18 showed right ICA 50-69% stenosis and left ICA not visualized possibly due to thrombosis. Patient is to follow-up with vascular surgery at 6 months for repeat ultrasound. Review of Systems Constitutional: Denies headache(s) Eyes: Denies change in vision and Denies loss of vision Ears, Nose, Mouth, and Throat: Denies hearing loss Cardiovascular: Denies chest pain Respiratory: Reports cough and Denies dyspnea Gastrointestinal: Denies constipation and Denies diarrhea Genitourinary: Denies urinary incontinence Musculoskeletal: Denies muscle weakness Skin/Breast: Denies unusual bruising Neurologic: Denies confusion, Denies dizziness, Denies focal weakness and Reports sensory deficit Psychiatric: Denies confusion Hematologic/Lymphatic: Denies easy bruising Allergic/Immunologic: Denies throat swelling PMFSH History History Provided By: Patient Medical History Medical History Gout (Acute) High cholesterol (Acute) Hypertension (Acute) Stroke (Acute) Surgical History Surgical History Hx of appendectomy (Acute) Hx of rotator cuff surgery (Acute) Tobacco History Second Hand Smoke Exposure: No Tobacco Use In Past 30 Days: No Smoking Status: Former smoker Tobacco Type: Cigarettes Alcohol History How Often Do You Have a Drink Containing Alcohol: 4 or more times a week ( Patient reports he drinks up to 6 drinks per night) Substance Use History Substance History: No History of Abuse Travel History Recent Travel in the [place] Within the Last 8 Weeks: No Recent Travel Out of the Country Within the Last 8 Weeks: No Immunization History Tetanus Immunization: >5 Years Tetanus Immunization Year if Known: 2010 Hx Influenza Vaccine This Season: Yes Medications and Allergies Allergies Allergy/AdvReac Type Severity Reaction Status Date / Time No Known Allergies Allergy Verified 07/05/18 01:33 Home Medications Medication Instructions Recorded Confirmed Type Zopiclone 1 tab PO HS PRN 07/05/18 History atorvastatin 80 mg PO DAILY 07/05/18 07/05/18 History celecoxib 200 mg PO BID PRN 07/05/18 07/05/18 History citalopram 10 mg PO DAILY 07/05/18 07/05/18 History escitalopram oxalate 20 mg PO DAILY 07/05/18 07/05/18 History febuxostat [Uloric] 80 mg PO DAILY 07/05/18 07/05/18 History hydromorphone 0.5 - 1 tab PO Q4H PRN 07/05/18 07/05/18 History meloxicam 7.5 mg PO DAILY 07/05/18 07/05/18 History perindopril erbumine 4 mg PO DAILY 07/05/18 07/05/18 History tadalafil 20 mg PO DAILY 07/05/18 07/05/18 History Active Medications: Active Medications Acetaminophen (Tylenol) 650 mg PO Q6H PRN PRN Reason: PAIN 1-10 AND/OR FEVER >101F Last Admin: 07/06/18 18:02 Dose: 650 mg Al Hydroxide/Mg Hydroxide (Milk Of Magnsrikanth Liq) 30 ml PO Q12H PRN PRN Reason: Mild Constipation Albuterol (Duoneb Neb (Prn)) 1 ampul NEB Q2HR NEB PRN PRN Reason: WHEEZING Alprazolam (Xanax) 0.5 mg PO Q6HR PRN PRN Reason: ANXIETY Atorvastatin Calcium (Lipitor) 80 mg PO DAILY [facility] Last Admin: 07/08/18 09:16 Dose: 80 mg Bisacodyl (Dulcolax Supp) 10 mg RECTAL DAILY PRN PRN Reason: SEVERE CONSITIPATION Chlorhexidine Gluconate (Chlorhexidine 2% Cloth) 3 pack TOPICAL DAILY@0400 [facility] Stop: 07/10/18 03:59 Last Admin: 07/08/18 06:37 Dose: 3 pack Chlorhexidine Gluconate (Chlorhexidine 2% Cloth) 3 pack TOPICAL DAILY@0400 PRN PRN Reason: Extra cloth needed Stop: 07/10/18 03:59 Citalopram Hydrobromide (Celexa) 10 mg PO DAILY [facility] Last Admin: 07/08/18 09:15 Dose: 10 mg Dextrose (D50w Vial) 50 ml IV.PUSH UNSCH PRN PRN Reason: PER HYPOGLYCEMIA PROTOCOL Enalaprilat (Vasotec Inj) 1.25 mg IV.PUSH Q6H PRN PRN Reason: Sbp>140, Dbp>90 Escitalopram Oxalate (Lexapro) 20 mg PO DAILY [facility] Last Admin: 07/08/18 09:16 Dose: 20 mg Famotidine (Pepcid) 20 mg PO BID [facility] Last Admin: 07/08/18 09:16 Dose: 20 mg Famotidine (Pepcid Pf Inj) 20 mg IV.PUSH Q12HR [facility] Last Admin: 07/08/18 09:16 Dose: Not Given Folic Acid (Folic Acid) 1 mg PO DAILY [facility] Last Admin: 07/08/18 09:15 Dose: 1 mg Glucagon (Glucagon Inj) 1 mg OTHER PRN PRN PRN Reason: for Hypoglycemia Protocol Hydralazine HCl (Apresoline Inj) 20 mg IV.PUSH Q4H PRN PRN Reason: Sbp>140, Dbp>90 Last Admin: 07/06/18 16:40 Dose: 20 mg Nicardipine HCl 25 mg/ Sodium (Chloride) 250 mls @ 50 mls/hr IV.CONT TITRATE PRN; Protocol PRN Reason: Per Protocol Last Titration: 07/06/18 02:57 Dose: 0 mg/hr, 0 mls/hr Magnesium Sulfate 4 gm/ Sodium (Chloride) 100 mls @ 50 mls/hr IV.SIG UNSCH PRN PRN Reason: For Magnesium 0.9 - 1.1 mg/dL Magnesium Sulfate 2 gm/ Sodium (Chloride) 100 mls @ 50 mls/hr IV.SIG UNSCH PRN PRN Reason: For Magnesium 1.2 - 1.6 mg/dL Potassium Chloride (Kcl 40 Meq Premix Inj) 40 meq in 100 mls @ 25 mls/hr IV.SIG Q2H PRN PRN Reason: For Potassium 2.8 - 3.2 mEq/L Potassium Chloride (Kcl 20 Meq Premix Inj) 20 meq in 100 mls @ 50 mls/hr IV.SIG Q2H PRN PRN Reason: For Potassium 3.3 - 3.5 mEq/L Potassium Chloride (Kcl 40 Meq Premix Inj) 40 meq in 100 mls @ 25 mls/hr IV.SIG UNSCH PRN PRN Reason: For Potassium 3.3 - 3.5 mEq/L Potassium Chloride (Kcl 20 Meq Premix Inj) 20 meq in 100 mls @ 50 mls/hr IV.SIG Q2H PRN PRN Reason: For Potassium 2.8 - 3.2 mEq/L Potassium Phosphate 30 mmol/ (Sodium Chloride) 260 mls @ 42 mls/hr IV.SIG UNSCH PRN PRN Reason: SEE LABEL COMMENTS Last Infusion: 07/06/18 12:40 Dose: Infused Sodium Phosphate 30 mmol/ (Sodium Chloride) 260 mls @ 42 mls/hr IV.SIG UNSCH PRN PRN Reason: For Phosphorus < 2.5 mg/dL Insulin Human Regular (Novolin R Correctional Sugar Inj) 0 units SQ Q6HR [facility]; Protocol Last Admin: 07/08/18 06:37 Dose: Not Given Labetalol HCl (Trandate Inj) 10 mg IV.SIG Q4H PRN PRN Reason: SBP>140, DBP>90 Lactulose (Lactulose Liq) 30 ml PO DAILY PRN PRN Reason: SEVERE CONSITIPATION Levetiracetam (Keppra) 500 mg PO BID [facility] Last Admin: 07/08/18 09:15 Dose: 500 mg Lisinopril (Prinivil) 20 mg PO DAILY [facility] Last Admin: 07/08/18 09:17 Dose: 20 mg Magnesium Oxide (Mag-Ox) 800 mg PO UNSCH PRN PRN Reason: For Magnesium 1.2 - 1.6 mg/dL Metoprolol Tartrate (Lopressor) 12.5 mg PO BID [facility] Last Admin: 07/08/18 09:16 Dose: 12.5 mg Ondansetron HCl (Zofran Inj) 4 mg IV.PUSH Q6H PRN PRN Reason: NAUSEA OR VOMITING Potassium Chloride (Kcl Liq) 40 meq PO UNSCH PRN PRN Reason: Potassium level 3.3-3.5 mEq/L Potassium Chloride (Kcl Liq) 40 meq PO UNSCH PRN PRN Reason: POTASSIUM LESS THAN 3.5 Potassium Phosphate (K-Phos Original) 2,000 mg PO Q4H PRN PRN Reason: Phosphorus Less Than 2.5 mg/dL Potassium Phosphate (K-Phos Original) 2,000 mg PO UNSCH PRN PRN Reason: SEE LABEL COMMENTS Senna/Docusate Sodium (Alanna-Colace) 1 tab PO BID [facility] Last Admin: 07/08/18 09:17 Dose: Not Given Sennosides (Senokot) 17.2 mg PO Q12H PRN PRN Reason: Moderate Constipation Sodium Chloride (Ns Flush) 2 ml IV.FLUSH BID [facility] Last Admin: 07/08/18 09:16 Dose: 2 ml Sodium Chloride (Ns Flush) 2 ml IV.FLUSH PRN PRN PRN Reason: FLUSH AFTER USING IV ACCESS Thiamine HCl (Vitamin B1) 100 mg PO BID [facility] Last Admin: 07/08/18 09:15 Dose: 100 mg Exam Physical Examination Vital Signs / I&O: Vital Signs 07/07/18 13:00 07/07/18 14:00 07/07/18 15:00 Temperature Pulse Rate 65 60 63 Respiratory Rate 26 H 20 18 Blood Pressure 127/69 Pulse Oximetry 96 98 98 07/07/18 16:00 07/07/18 17:00 07/07/18 18:00 Temperature 97.9 F Pulse Rate 65 66 67 Respiratory Rate 22 20 20 Blood Pressure 156/91 H 159/74 H 152/85 H Pulse Oximetry 99 98 98 07/07/18 19:00 07/07/18 20:00 07/07/18 21:00 Temperature 98 F Pulse Rate 63 62 61 Respiratory Rate 19 17 22 Blood Pressure 141/76 H 167/77 H 151/71 H Pulse Oximetry 97 99 99 07/07/18 22:00 07/07/18 23:00 07/07/18 23:08 Temperature Pulse Rate 60 65 69 Respiratory Rate 17 24 Blood Pressure 147/71 H 129/66 Pulse Oximetry 99 96 07/08/18 00:00 07/08/18 01:00 07/08/18 02:00 Temperature 98.2 F Pulse Rate 69 68 57 L Respiratory Rate 17 18 19 Blood Pressure 154/76 H 153/75 H 149/59 H Pulse Oximetry 95 95 96 07/08/18 03:00 07/08/18 03:14 07/08/18 03:29 Temperature Pulse Rate 65 55 L Respiratory Rate 17 15 Blood Pressure 142/71 H Pulse Oximetry 97 95 95 07/08/18 04:00 07/08/18 04:20 07/08/18 05:00 Temperature 98.2 F Pulse Rate 65 60 62 Respiratory Rate 14 15 Blood Pressure 140/67 136/65 Pulse Oximetry 94 L 96 07/08/18 06:00 07/08/18 07:00 07/08/18 07:28 Temperature Pulse Rate 54 L 59 L Respiratory Rate 13 14 Blood Pressure 134/63 138/66 Pulse Oximetry 96 96 97 07/08/18 08:00 07/08/18 09:00 07/08/18 10:00 Temperature 98.8 F Pulse Rate 72 61 61 Respiratory Rate 27 H 24 22 Blood Pressure 158/71 H 147/85 H 158/72 H Pulse Oximetry 97 98 97 07/08/18 10:13 07/08/18 10:31 07/08/18 10:34 Temperature Pulse Rate 66 63 Respiratory Rate 18 22 Blood Pressure 143/75 H 125/70 Pulse Oximetry 99 07/08/18 10:36 Temperature Pulse Rate 56 L Respiratory Rate 22 Blood Pressure 126/67 Pulse Oximetry 99 Intake & Output 07/07/18 07/08/18 07/08/18 18:59 06:59 18:59 Intake Total 480 / 480 240 / 240 Output Total 670 / 670 725 / 725 375 / 375 Balance -190 / -190 -725 / -725 -135 / -135 Weight 80.3 kg Intake: Oral 480 / 480 240 / 240 Output: Urine 670 / 670 725 / 725 375 / 375 Other: # Voids 3 Date of Last Bowel Movement 07/07/18 07/08/18 # Bowel Movements 2 1 Intake & Output 07/06/18 07/07/18 07/08/18 07/09/18 06:59 06:59 06:59 06:59 Intake Total 2361 / 2361 1010 / 1010 480 / 480 240 / 240 Output Total 4425 / 4425 405 / 405 1395 / 1395 375 / 375 Balance -2064 / -2064 605 / 605 -915 / -915 -135 / -135 Weight 85.9 kg 81.7 kg 80.3 kg General: No acute distress Respiratory: Lungs CTA, BS equal and Symmetrical expansion Gastrointestinal: Positive bowel sounds, Non-distended and Non-tender Date of Last Bowel Movement: 07/08/18 Cardiovascular: Normal rate and Regular rhythm Skin: No rash Musculoskeletal: ROM (Within functional limits) and Swelling (None in distal lower extremities) Psychiatric: Cooperative and Appropriate mood & affect Neurologic Orientation: oriented to: Self, Place, Time and Situation Neurologic: Cranial nerves (Intact 2 through 12), Pupils (PERRLA), EOM (Intact) , Facial symmetry (Symmetric) and Speech (No dysarthria or word finding difficulties) Motor: Right Upper Extremity (5/5), Left Upper Extremity (5/5), Right Lower Extremity (5/5) and Left Lower Extremity (5/5 grossly; testing limited due to postoperative dressing in the left foot) Sensory: Impaired in the right upper extremity by approximately 75% in the right lower extremity by 50% to light touch DTRs: Normal Babinski: Positive (Equivocal right) Clonus: Negative Results Labs CBC & Chem 7: 07/08/18 03:07 07/08/18 03:07 Imaging Laboratory Results CBC w Diff Auto diff final 07/05/18 01:33 WBC 6.1 th/mm3 (4.0-11.0) D 07/08/18 03:07 RBC 3.79 mil/mm3 (4.50-5.90) L 07/08/18 03:07 Hgb 12.7 gm/dL (13.0-17.0) L 07/08/18 03:07 Hct 36.7 % (39.0-51.0) L 07/08/18 03:07 MCV 97.0 fL (80.0-100.0) 07/08/18 03:07 MCH 33.5 pg (27.0-34.0) 07/08/18 03:07 MCHC 34.6 % (32.0-36.0) 07/08/18 03:07 RDW 12.8 % (11.6-17.2) 07/08/18 03:07 Plt Count 101 th/mm3 (150-450) L 07/08/18 03:07 MPV 9.2 fL (7.0-11.0) 07/08/18 03:07 Neut % (Auto) 61.9 % (16.0-70.0) 07/08/18 03:07 Lymph % (Auto) 28.0 % (9.0-44.0) 07/08/18 03:07 [place] % (Auto) 9.5 % (0.0-8.0) H 07/08/18 03:07 Eos % (Auto) 0.4 % (0.0-4.0) 07/08/18 03:07 Baso % (Auto) 0.2 % (0.0-2.0) 07/08/18 03:07 Neut # (Auto) 3.8 th/mm3 (1.8-7.7) 07/08/18 03:07 Lymph # (Auto) 1.7 th/mm3 (1.0-4.8) 07/08/18 03:07 [place] # (Auto) 0.6 th/mm3 (0.0-0.9) 07/08/18 03:07 Eos # (Auto) 0.0 th/mm3 (0.0-0.4) 07/08/18 03:07 Baso # (Auto) 0.0 th/mm3 (0.0-0.2) 07/08/18 03:07 WBC Differential . 07/08/18 03:07 Differential Comment Auto diff final 07/08/18 03:07 ESR 25 mm/hr (0-20) H 07/05/18 15:33 PT 10.4 sec (9.8-11.6) 07/06/18 07:34 INR 1.0 Ratio 07/06/18 07:34 APTT 25.4 sec (23.4-31.7) 07/05/18 01:33 Sodium 141 meq/L (136-145) 07/08/18 03:07 Potassium 3.6 meq/L (3.5-5.1) 07/08/18 03:07 Chloride 109 meq/L (98-107) H 07/08/18 03:07 Carbon Dioxide 24.8 meq/L (21.0-32.0) 07/08/18 03:07 Anion Gap 7 meq/L (5-15) 07/08/18 03:07 BUN 28 mg/dL (7-18) H 07/08/18 03:07 Creatinine 1.16 mg/dL (0.60-1.30) 07/08/18 03:07 Estimated GFR 63 mL/min (>89) L 07/08/18 03:07 POC Glucose 112 mg/dl (68-110) H 07/08/18 00:56 Random Glucose 103 mg/dL (74-106) 07/08/18 03:07 Hemoglobin A1c 5.2 % (4.3-6.0) 07/05/18 07:44 Calcium 8.1 mg/dL (8.5-10.1) L 07/08/18 03:07 Phosphorus 2.9 mg/dL (2.5-4.9) 07/08/18 03:07 Magnesium 2.0 mg/dL (1.5-2.5) 07/08/18 03:07 Total Bilirubin 0.9 mg/dL (0.2-1.0) 07/07/18 03:44 AST 49 U/L (15-37) H 07/07/18 03:44 ALT 42 U/L (12-78) 07/07/18 03:44 Alkaline Phosphatase 107 U/L (45-117) 07/07/18 03:44 Total Creatine Kinase 51 U/L (39-308) 07/05/18 01:33 Troponin I Less than 0.02 ng/mL (0.02-0.05) L 07/05/18 01:33 Total Protein 7.4 g/dL (6.4-8.2) 07/07/18 03:44 Albumin 3.1 g/dL (3.4-5.0) L 07/07/18 03:44 Triglycerides 172 mg/dL (42-150) H 07/05/18 07:44 Cholesterol 120 mg/dL (120-200) 07/05/18 07:44 LDL Cholesterol, Calc 33 mg/dL (0-99) 07/05/18 07:44 HDL Cholesterol 52.8 mg/dL (40.0-60.0) 07/05/18 07:44 Cholesterol/HDL Ratio 2.27 Ratio 07/05/18 07:44 Nasal Screen MRSA (PCR) Not detected (Negative) 07/05/18 03:00 Urine Opiates Screen Neg (Neg) 07/05/18 09:00 Ur Barbiturates Screen Neg (Neg) 07/05/18 09:00 Ur Amphetamines Screen Neg (Neg) 07/05/18 09:00 U Benzodiazepines Scrn Neg (Neg) 07/05/18 09:00 Urine Cocaine Screen Neg (Neg) 07/05/18 09:00 U Cannabinoids Screen Neg (Neg) 07/05/18 09:00 Serum Alcohol Less than 3 mg/dL (0-5) 07/05/18 01:33 Blood Type O Positive 07/05/18 07:44 Blood Type Recheck Required 07/05/18 07:44 Antibody Screen Positive H 07/05/18 07:44 Antibody Identification Anti-M 07/05/18 12:54 Rout Panel Path Interp 07/05/18 12:54 Antigen Identification M Antigen - NEGATIVE 07/05/18 12:53 MTS Gel Crossmatch See Detail 07/05/18 07:44 Bld Prod Order Comment 07/05/18 07:44 Impressions Carotid Doppler Study 07/05/18 00:00 CONCLUSION: 1. Right Internal Carotid Artery: Findings indicate 50-69% stenosis. 2. Left Internal Carotid Artery: Not visualized and may be thrombosed. CTA examination may be obtained for further evaluation as clinically appropriate. Foot MRI 07/05/18 00:00 CONCLUSION: 1. Findings as above with inflammatory changes evident from skin to undersurface of the first MTP joint involving flexor tendon of the first phalanx. There are some mild marrow signal alterations that could be only degenerative. Findings are minimal. 2. There is no evidence of deep space abscess Foot X-Ray 07/05/18 00:00 CONCLUSION: 1. Soft tissue prominence with ulceration in the medial plantar proximal toe with heterotopic ossification at the head of the first metatarsal and subtle erosive change along the medial proximal first metatarsal. Differential considerations include chronic or prior osteomyelitis. Patient has an MRI examination pending. Head MRI 07/05/18 00:00 CONCLUSION: 1. MRI is consistent with acute focal left thalamic hemorrhage without enhancement to suggest underlying mass. 2. Follow-up MRI would be of benefit proximal to 6 weeks to ensure this involving as a small lacunar type hemorrhage.. 3. This does involve the posterior limb of the internal capsule. Head CT 07/05/18 01:33 CONCLUSION: 1. Acute left thalamic hemorrhage without significant mass effect. Report was called by Dr. Mckeon to Dr. He.. Neck MRA 07/06/18 00:00 CONCLUSION: 1. There is complete occlusion of the left internal carotid artery just past its origin. 2. No focal high-grade or significant stenosis is seen involving the right internal carotid artery. Percent stenosis is calculated using the diameter of the stenotic region over the diameter of the normal distal internal carotid artery Assessment and Plan (1) Acute intracerebral hemorrhage: Status: Acute Code(s): I61.9 - Nontraumatic intracerebral hemorrhage, unspecified (2) Hemisensory deficit: Status: Acute Code(s): R29.818 - Other symptoms and signs involving the nervous system (3) Impaired mobility and ADLs: Status: Acute Code(s): Z74.09 - Other reduced mobility Plan Assessment: 1. Left thalamic hemorrhagic stroke with right rogelio-sensory impairment 2. Left foot ulceration status post debridement: Nonweightbearing left foot 3. Impaired mobility and ADLs due to above 4. Additional past medical history as above Recommendations: 1. Physical therapy is mobilizing and patient is now moderate assistance for transfers. Sensory impairment in the right lower extremity in combination with nonweightbearing due to left foot ulcer status post debridement will make gait training challenging. Patient will need additional rehabilitation at discharge. 2. Speech therapy has evaluated swallow and tolerating regular diet 3. Occupational Therapy consulted to address ADLs 4. Close supervision for fall prevention 5. Case management is addressing discharge planning. Patient lives in [facility] 6 months of the year and in the [facility] in a motor home 6 months of the year. Anticipate that patient will be required to travel back to [place] to continue with insurance coverage for rehab services. 6. Will follow while hospitalized and as appropriate at discharge Thank you for this consult.
--- NOTE | 2018-07-08 12:33 | P.PNIM ---
Subjective Interval history: 63-year-old male from [place] who presented with hemorrhagic stroke and subsequently was found to have a left foot infection. Physical Exam Vital signs: Vital Signs 07/07/18 13:00 07/07/18 14:00 07/07/18 15:00 Temperature Pulse Rate 65 60 63 Respiratory Rate 26 H 20 18 Blood Pressure 127/69 Pulse Oximetry 96 98 98 07/07/18 16:00 07/07/18 17:00 07/07/18 18:00 Temperature 97.9 F Pulse Rate 65 66 67 Respiratory Rate 22 20 20 Blood Pressure 156/91 H 159/74 H 152/85 H Pulse Oximetry 99 98 98 07/07/18 19:00 07/07/18 20:00 07/07/18 21:00 Temperature 98 F Pulse Rate 63 62 61 Respiratory Rate 19 17 22 Blood Pressure 141/76 H 167/77 H 151/71 H Pulse Oximetry 97 99 99 07/07/18 22:00 07/07/18 23:00 07/07/18 23:08 Temperature Pulse Rate 60 65 69 Respiratory Rate 17 24 Blood Pressure 147/71 H 129/66 Pulse Oximetry 99 96 07/08/18 00:00 07/08/18 01:00 07/08/18 02:00 Temperature 98.2 F Pulse Rate 69 68 57 L Respiratory Rate 17 18 19 Blood Pressure 154/76 H 153/75 H 149/59 H Pulse Oximetry 95 95 96 07/08/18 03:00 07/08/18 03:14 07/08/18 03:29 Temperature Pulse Rate 65 55 L Respiratory Rate 17 15 Blood Pressure 142/71 H Pulse Oximetry 97 95 95 07/08/18 04:00 07/08/18 04:20 07/08/18 05:00 Temperature 98.2 F Pulse Rate 65 60 62 Respiratory Rate 14 15 Blood Pressure 140/67 136/65 Pulse Oximetry 94 L 96 07/08/18 06:00 07/08/18 07:00 07/08/18 07:28 Temperature Pulse Rate 54 L 59 L Respiratory Rate 13 14 Blood Pressure 134/63 138/66 Pulse Oximetry 96 96 97 07/08/18 08:00 07/08/18 09:00 07/08/18 10:00 Temperature 98.8 F Pulse Rate 72 61 61 Respiratory Rate 27 H 24 22 Blood Pressure 158/71 H 147/85 H 158/72 H Pulse Oximetry 97 98 97 07/08/18 10:13 07/08/18 10:31 07/08/18 10:34 Temperature Pulse Rate 66 63 Respiratory Rate 18 22 Blood Pressure 143/75 H 125/70 Pulse Oximetry 99 07/08/18 10:36 Temperature Pulse Rate 56 L Respiratory Rate 22 Blood Pressure 126/67 Pulse Oximetry 99 Intake & Output 07/07/18 07/08/18 07/08/18 18:59 06:59 18:59 Intake Total 480 / 480 240 / 240 Output Total 670 / 670 725 / 725 375 / 375 Balance -190 / -190 -725 / -725 -135 / -135 Weight 80.3 kg Intake: Oral 480 / 480 240 / 240 Output: Urine 670 / 670 725 / 725 375 / 375 Other: # Voids 3 Date of Last Bowel Movement 07/07/18 07/08/18 # Bowel Movements 2 1 Narrative: GENERAL: Well-nourished, well-developed patient. SKIN: Warm and dry. HEAD: Normocephalic. EYES: No scleral icterus. No injection or drainage. NECK: Supple, trachea midline. No JVD or lymphadenopathy. CARDIOVASCULAR: Regular rate and rhythm without murmurs, gallops, or rubs. RESPIRATORY: Breath sounds equal bilaterally. No accessory muscle use. GASTROINTESTINAL: Abdomen soft, non-tender, nondistended. MUSCULOSKELETAL: No cyanosis, or edema. Right upper extremity is slightly weaker than left. Right lower extremities strength appears to be equal. BACK: Nontender without obvious deformity. No CVA tenderness. Results Labs CBC & Chem 7: 07/08/18 03:07 07/08/18 03:07 Labs: Microbiology 07/06/18 14:33 Wound - Foot Gram Stain - Final 07/06/18 14:33 Wound - Foot Wound Culture - Preliminary Beta Strep not A,B or D Staphylococcus aureus 07/06/18 14:33 Wound - Foot Fungal Smear - Final No fungal elements seen Assessment and Plan Plan Mr. Chauhan is a pleasant 63-year-old male from [place] with history of hypertension, dyslipidemia, and TIA who presented to the [facility] on 07/05/2018 with sudden-onset headache and right upper/ lower extremity numbness and weakness. A CT study showed acute left thalamic hemorrhagic stroke. Acute left thalamic hemorrhagic cerebrovascular accident History of TIA, previous CVA Appreciate neurology, neurosurgery input. Patient was on aspirin 81 mg daily prior to this incident. Continue atorvastatin 80 mg daily Carotid Doppler US showed nonvisualized and possibly thrombosed left internal carotid artery. MRI neck shows similar findings. - Vascular recommends no surgical intervention at this point. 6 Month follow up. -Clinically he is doing very well considering the nature of his CVA - Continue with PT and OT Left foot ulcer Podiatry assisted with arranging for left offloading boot Patient is ambulating much better with his new boot Continue with Xeroform dressing, dressing changes Appreciate podiatry consult, follow-up in 1 week outpatient Right leg weakness Chronic from previous CVA last September, possible exacerbation from current CVA He had trouble walking with PT yesterday due to no boot He has offloading boot today and states he is already ambulating better We will give him a chance to work with PT, patient would prefer home health care if he qualifies Hypertension Anxiety Continue lisinopril 10 mg p.o. daily, IV labetalol and hydralazine as needed. Currently systolic blood pressure in the 150s. Will increase Lisinopril 20mg Qday. Goal blood pressure systolic within 140-160 range Continue alprazolam 0.5 mg p.o. every 6 hours as needed Alcohol abuse Continue folic acid and thiamine. DVT prophylaxis SCDs Discharge planning Patient is a [place], prefers home health PT or outpatient PT if possible Progress Note: Quality VTE Deep Vein Thrombosis/Pulmonary Embolism Present on Admission: No
[2018-07-09] MEDS: Insulin NovoLIN Regular Correctional Sugar Inj SQ SCH ×3 (00:02→14:04)
[2018-07-09] MEDS: Chlorhexidine Gluconate 2% 1 Pack (2 Cloths) TOPICAL SCH (04:36)
[2018-07-09] MEDS: levETIRAcetam 500 MG Tablet PO SCH (09:58)
[2018-07-09] MEDS: Lisinopril 10 MG Tablet PO SCH (09:58)
[2018-07-09] MEDS: Citalopram 20 MG Tablet PO SCH (09:59)
[2018-07-09] MEDS: Metoprolol Tartrate 25 MG Tablet PO SCH (09:59)
[2018-07-09] MEDS: Senna/Docusate Sodium 8.6/50 MG Tablet PO SCH (10:00)
[2018-07-09] MEDS: Folic Acid 1 MG Tablet PO SCH (10:00)
[2018-07-09] MEDS: Famotidine 20 MG Tablet PO SCH (10:00)
[2018-07-09] MEDS: Famotidine PF Inj 20 MG/2 ML Vial IV.PUSH SCH (10:01)
--- NOTE | 2018-07-09 15:35 | P.DS ---
DS: Providers Date of admission: 07/05/18 02:02 Primary care physician: PROVIDER NON STAFF Consults: 07/05/18 01:33 Consult to Neurology Stat Consulting Provider: Tu Concepcion For STAT consult, spoke directly to:: Lauren Reason for Consultation: stroke alert Notified:: Service Spoke with:: christiano verified stat with [facility] Date Notified:: 07/05/18 Time Notified:: 03:33 Ordering Provider: BLAKE 07/05/18 03:09 Consult to Rehab Medicine Routine Consulting Provider: Mauro Kaplan Reason for Consultation: Hemorrhagic stroke Notified:: Service Spoke with:: christiano Date Notified:: 07/05/18 Time Notified:: 03:34 Ordering Provider: VEE 07/05/18 03:17 Consult to Podiatry Routine Consulting Provider: Angel Mancia Reason for Consultation: left foot ulcer/ poorly healing wound Notified:: Service Spoke with:: christiano Date Notified:: 07/05/18 Time Notified:: 03:35 Ordering Provider: VEE 07/05/18 07:52 Consult to Neurosurgery Routine Consulting Provider: Yann Andujar Reason for Consultation: ICH Notified:: Physician Spoke with:: DR. ANDUJAR Date Notified:: 07/05/18 Time Notified:: 08:22 Ordering Provider: BHASKAR 07/05/18 12:16 Consult to Vascular Surgery Routine Consulting Provider: Nicole Aragon Audiology Technician:: Nicole Aragon Reason for Consultation: peripheral vascular evaluation. wound left foot x 2 months Notified:: Physician Spoke with:: DR. Sylvester Date Notified:: 07/05/18 Time Notified:: 12:19 Ordering Provider: MAYRA 07/05/18 21:07 Consult to Hospitalist Routine Consulting Provider: Wes Marte Reason for Consultation: AMS Notified:: Service Spoke with:: DARRICK Date Notified:: 07/05/18 Time Notified:: 08:20 Comments:: Ordering Provider: BHASKAR Brief History from admission: 63yM with history of hypertension, dyslipidemia, and TIA who presented to the [facility] with sudden-onset headache and right upper/ lower extremity numbness and weakness. The patient states that he was working on his computer this morning around 00:45 when he had a sudden-onset headache. He tried to stand up and walk but realized that his right arm and leg were weak and numb. He reports that just prior to arriving in the ED he began to have right facial numbness as well. Denies aphasia, dysarthria, visual disturbance, facial droop, or confusion. He had a CTH performed with showed an acute left thalamic hemorrhagic stroke, so he was transferred to the [facility] for surgical critical care and neurology consultation. The patient reports that he takes 81 mg aspirin daily and says that he's had a TIA in the past which left him with no residual deficits. He is a right-hand dominant retired payroll tax specialist. He also reports that he has a "blister" to his left foot which has not healed since he first noticed it 3 months ago, and has been seeing a primary care doctor in [place] for this (patient is a "snow bird" from [place]). DS: Diagnosis Discharge Diagnosis (1) Acute intracerebral hemorrhage: Status: Acute (2) Hemisensory deficit: Status: Acute (3) Impaired mobility and ADLs: Status: Acute DS: Summary 63-year-old male who had a ischemic stroke 63-year-old male 63-year-old male who had a left ischemic stroke last September presented to our ER for days ago with a left hemorrhagic stroke that was in the context of being on blood thinners and coughing. Fortunately the area of hemorrhage was not progressive and although he did have some right-sided weakness in his upper and lower extremity that weakness has improved greatly over the last 2 days. He initially had trouble walking due to the lack of following his admission he was found to have a diabetic ulceration on his left foot, this was addressed by podiatry. He initially had a difficult time walking due to lack of a offloading boot. Once he had the boot his ambulation has improved greatly, today he is ambulating around the entire floor multiple times and requesting to go home. He is from [place] and will need to pay [facility] for physical therapy, I recommended that he follows up with physical therapy and a prescription is provided to him. Is recommended at this point to avoid blood thinners. He should continue with the statins to address cholesterol as the cause of his plaques, however we had a long discussion about reducing dietary cholesterol is the only way to actually clean up plaques that are already in place. He is instructed to follow-up with podiatry in the next week. He will be following up with physical therapy within a week. He is following up with his neurologist and ongoing physical therapy and [place] in 6 weeks after his trip home. Time Spent with Patient Total time spent providing and/or coordinating discharge services: Quality: Stroke Last date observed well: 07/05/18 Last time observed well: 00:45 Quality: VTE Deep Vein Thrombosis/Pulmonary Embolism Present on Admission: No Results Impressions ITS Impressions Carotid Doppler Study 07/05/18 00:00 CONCLUSION: 1. Right Internal Carotid Artery: Findings indicate 50-69% stenosis. 2. Left Internal Carotid Artery: Not visualized and may be thrombosed. CTA examination may be obtained for further evaluation as clinically appropriate. Foot MRI 07/05/18 00:00 CONCLUSION: 1. Findings as above with inflammatory changes evident from skin to undersurface of the first MTP joint involving flexor tendon of the first phalanx. There are some mild marrow signal alterations that could be only degenerative. Findings are minimal. 2. There is no evidence of deep space abscess Foot X-Ray 07/05/18 00:00 CONCLUSION: 1. Soft tissue prominence with ulceration in the medial plantar proximal toe with heterotopic ossification at the head of the first metatarsal and subtle erosive change along the medial proximal first metatarsal. Differential considerations include chronic or prior osteomyelitis. Patient has an MRI examination pending. Head MRI 07/05/18 00:00 CONCLUSION: 1. MRI is consistent with acute focal left thalamic hemorrhage without enhancement to suggest underlying mass. 2. Follow-up MRI would be of benefit proximal to 6 weeks to ensure this involving as a small lacunar type hemorrhage.. 3. This does involve the posterior limb of the internal capsule. Head CT 07/05/18 01:33 CONCLUSION: 1. Acute left thalamic hemorrhage without significant mass effect. Report was called by Dr. Mckeon to Dr. He.. Neck MRA 07/06/18 00:00 CONCLUSION: 1. There is complete occlusion of the left internal carotid artery just past its origin. 2. No focal high-grade or significant stenosis is seen involving the right internal carotid artery. Percent stenosis is calculated using the diameter of the stenotic region over the diameter of the normal distal internal carotid artery Discharge Plan Discharge Disposition Patient Disposition: Discharge Home Discharge Condition Condition: Good Discharge Order Discharge Orders: Discharge Order (Routine); Ordered 07/09/18 Ordered By: Zi Gee Discharge Details Anticipated Discharge Date: 07/09/18 Physicians Team Primary Care Provider: NON STAFF,PROVIDER Attending Provider: Zi Gee Other Providers: Mauro Kaplan ; Tu Concepcion ; Angel Mancia ; Yann Andujar ; Nicole Aragon Rxs /Orders / Referrals /Forms Prescriptions: Continue celecoxib 200 mg Capsule 200 mg PO BID PRN (Reason: Pain) RF: 0 atorvastatin 80 mg Tablet 80 mg PO DAILY RF: 0 perindopril erbumine 4 mg Tablet 4 mg PO DAILY RF: 0 meloxicam 7.5 mg Tablet 7.5 mg PO DAILY RF: 0 citalopram 20 mg Tablet 10 mg PO DAILY RF: 0 escitalopram oxalate 20 mg Tablet 20 mg PO DAILY RF: 0 tadalafil 20 mg Tablet 20 mg PO DAILY RF: 0 febuxostat [Uloric] 80 mg Tablet 80 mg PO DAILY RF: 0 Zopiclone 7.5 mg tablet 1 tab PO HS PRN (Reason: Insomnia) RF: 0 hydromorphone 1 mg tablet 0.5 - 1 tab PO Q4H PRN (Reason: Pain) RF: 0 Referrals: Angel Mancia DPM [Physician] - See Instructions (1 week follow up) NON STAFF,PROVIDER [Primary Care Provider] - See Instructions Discharge Interventions Interventions: Discharge Planning - Case Management Last Done: 07/09/18 10:42 Status ED Status: Left Department
[2018-07-09 16:22] VITALS: BP 134/65; PULSE 70; RESP 16; TEMP 97.8; O2SAT 100
== END 2018-07-09 16:50 | disposition home or self-care (01) | DRG 41 ==
LOC: PHED 01:31 → PHEDA 02:02 → N03 02:20
PROVIDERS: ADMIT Family Medicine; ATTEND Family Medicine
PROC: DEBRIDE (2018-07-06 14:04)
DX: E11.51 Type 2 diabetes mellitus with diabetic peripheral angiopathy without gangrene; R29.705 NIHSS score 5; E78.00 Pure hypercholesterolemia, unspecified; L97.522 Non-pressure chronic ulcer of other part of left foot with fat layer exposed; Z86.73 Personal history of transient ischemic attack (TIA), and cerebral infarction without residual deficits; Z82.49 Family history of ischemic heart disease and other diseases of the circulatory system; F10.10 Alcohol abuse, uncomplicated; I10 Essential (primary) hypertension; M10.9 Gout, unspecified; G81.91 Hemiplegia, unspecified affecting right dominant side; Z90.49 Acquired absence of other specified parts of digestive tract; Z79.82 Long term (current) use of aspirin; F41.9 Anxiety disorder, unspecified; E78.5 Hyperlipidemia, unspecified; I61.8 Other nontraumatic intracerebral hemorrhage; L03.116 Cellulitis of left lower limb; R41.82 Altered mental status, unspecified; E11.621 Type 2 diabetes mellitus with foot ulcer; Z79.899 Other long term (current) drug therapy; I65.21 Occlusion and stenosis of right carotid artery
CPT/HCPCS: 70450; 70548; 70553; 73630; 73718; 80048; 80053; 80061; 80307; 82550; 82948; 82962; 83036; 83735; 84100; 84132; 84484; 85025; 85610; 85651; 85652; 85730; 86077; 86403; 86850; 86870; 86900; 86901; 86902; 86920; 86922; 87015; 87070; 87102; 87116; 87147; 87186; 87205; 87206; 87641; 92526; 92610; 93005; 93306; 93880; 97110; 97116; 97162; 97164; 97167; 97530; 97535; 99291; A9585; C9238; G0195; J0360; J0690; J1100; J1953; J2370; J2704; J3411; J7030; J7050; L2114; L3250